=== PATIENT | female | born 1950 | race Caucasian/White ===

== ENCOUNTER 2016-05-20 15:09 | Inpatient (IN) | payer BC ==
[~2016-05-20] VITALS: Ht 160 cm; Wt 71.7 kg
[~2016-05-20 15:09] MED LIST: ASPI81TA2 PO; BORT3.5V IJ; DEXA4TAB PO; IBUP-1027 PO; Insulin Detemir SQ; LENA10CA PO; LEVO250T25 PO; METF10002 PO; NAPR220C4 PO; OLME20TA PO; PRAV20TA2 PO; SULF1TAB24 PO; Tumeric PO; VALA500T5 PO; ZOLE4INF IV
--- NOTE | 2016-05-20 15:28 | ED.ADGEN ---
Past Medical History Past Medical History: Asthma, Cancer, Diabetes-Type II, High Cholesterol, Hypertension Additional Past Medical Histor: multiple myeloma Past Surgical History: Tonsillectomy, Other Additional Past Surgical Histo: hernia repair x3, right ankle fracture repair, dilation and curretage Alcohol Use: None Drug Use: None Adult General Chief Complaint Chief Complaint: WEAKNESS/GENERALIZED HPI HPI Patient is a 66 year old [woman, history of multiple myeloma on Velcade and Revlimid who presents the emergency department with a complaint of cough, generalized weakness and malaise over the past several days. Patient received her treatment on Monday, states she she has been feeling ill since that time. Was seen by her primary care provider on Monday, as she developed rhinorrhea , and was placed on amoxicillin, has been taking 500 mg twice daily for the past 3 days. Sore throat also reported. Patient states that she generally does not receive both of these treatments together, and is concerned that her symptoms may be due to the joint administration earlier this week. She denies any productive cough, states that it is dry and constant, associated with fever , 100.4-102. She last took acetaminophen around 9 AM this morning. Denies any emesis, states she's had a decreased appetite, complains of generalized body aches and malaise, no urinary symptoms. No chest pain, no focal weakness numbness or tingling. Review of Systems Review of Systems Constitutional: Fevers, chills and generalized malaise for the past several days. Eyes: Denies change in visual acuity. [] HENT: Nasal congestion and sore throat. Respiratory: Cough, no shortness of breath, cough is nonproductive. Cardiovascular: Denies chest pain or edema. [] GI: Denies abdominal pain, nausea, vomiting, bloody stools or diarrhea. [] : Denies dysuria. [] Musculoskeletal: Denies back pain or joint pain. [] Integument: Denies rash. [] Neurologic: Denies headache, focal weakness or sensory changes. [] Endocrine: Denies polyuria or polydipsia. [] Lymphatic: Denies swollen glands. [] Psychiatric: Denies depression or anxiety. [] Current Medications Current Medications Current Medications Medications (Trade) Dose Ordered Sig/Wes Start Time Stop Time Status Last Admin Dose Admin Acetaminophen (Tylenol) 650 mg PRN Q4HRS PRN 05/20/16 17:00 05/21/16 16:59 Albuterol/ Ipratropium (Duoneb) 3 ml RTQID 05/20/16 20:00 05/21/16 19:59 Fentanyl Citrate (Fentanyl 2ml Vial) 25 mcg PRN Q15MIN PRN 05/20/16 16:15 05/21/16 16:14 05/20/16 16:27 25 MCG Ondansetron HCl 4 mg 4 mg PRN Q8HRS PRN 05/20/16 17:00 05/21/16 16:59 Oseltamivir Phosphate (Tamiflu) 75 mg BID 05/20/16 17:00 05/25/16 09:01 Piperacillin Sod/ Tazobactam Sod 1 each 1 each PRN DAILY PRN 05/20/16 16:45 UNV Piperacillin Sod/ Tazobactam Sod/ Sodium Chloride (Zosyn/Iv Sodium Chloride 0.9% 100ml) 100 ml @ 200 mls/hr 1X ONCE 05/20/16 17:00 05/20/16 17:29 05/20/16 17:01 200 MLS/HR Sodium Chloride (Iv Sodium Chloride 0.9% 500ml Bag) 500 ml @ 500 mls/hr 1X ONCE 05/20/16 16:30 05/20/16 17:29 05/20/16 16:27 500 MLS/HR Sodium Chloride (Iv Sodium Chloride 0.9% 1000ml Bag) 1,000 ml @ 125 mls/hr Q8H 05/20/16 16:55 05/21/16 16:54 Vancomycin HCl 1 each 1 each PRN DAILY PRN 05/20/16 17:00 UNV Vancomycin HCl/ Sodium Chloride (Iv Sodium Chloride 0.9% 500ml Bag) 500 ml @ 250 mls/hr 1X ONCE 05/20/16 18:00 05/20/16 19:59 Allergies Allergies Allergies Coded Allergies Type Severity Reaction Last Updated Verified Beta-Blockers (Beta-Adrenergic Bloc Allergy Intermediate Itching and anxiety Yes Iodinated Contrast Media - Oral and Allergy Intermediate 05/08/14 Yes hydrocodone Allergy Intermediate 05/08/14 Yes pioglitazone Adverse Reaction Intermediate anxiety 05/08/14 Yes Physical Exam Physical Exam Constitutional: Well developed, well nourished, no acute distress, non-toxic appearance. [] HENT: Normocephalic, atraumatic, bilateral external ears normal, oropharynx moist, no oral exudates, nose normal. [] Eyes: PERRLA, EOMI, conjunctiva normal, no discharge. [] Neck: Normal range of motion, no tenderness, supple, no stridor. [] Cardiovascular:Heart rate regular rhythm, no murmur, S1, S2, rubs or gallops. [] Lungs & Thorax: Bilateral breath sounds clear to auscultation, no wheezing, rhonchi, rales. No chest or crepitus or tenderness. [] Abdomen: Bowel sounds normal, soft, no tenderness, no rebound, rigidity, no guarding, no masses, no pulsatile masses. [] Skin: Warm, dry, no erythema, no rash. [] Back: No tenderness, no CVA tenderness. [] Extremities: No tenderness, no cyanosis, no clubbing, ROM intact, no edema. Negative Homans sign. [] Neurologic: Alert and oriented X 3, normal motor function, normal sensory function, no focal deficits noted. [] Psychologic: Affect normal, judgement normal, mood normal. [] Current Patient Data Vital Signs Vital Signs Date Time Temp Pulse Resp B/P Pulse Ox O2 Delivery O2 Flow Rate FiO2 05/20/16 17:06 108 18 132/73 96 Room Air 05/20/16 15:45 98.2 98.2 Lab Values Laboratory Tests Test 05/20/16 15:40 05/20/16 15:43 05/20/16 16:10 White Blood Count 1.1x10^3/uL (4.0-11.0) *L Red Blood Count 3.55x10^6/uL (3.50-5.40) Hemoglobin 11.3g/dL (12.0-15.5) L Hematocrit 33.5% (36.0-47.0) L Mean Corpuscular Volume 94fL (79-100) Mean Corpuscular Hemoglobin 32pg (25-35) Mean Corpuscular Hemoglobin Concent 34g/dL (31-37) Red Cell Distribution Width 15.0% (11.5-14.5) H Platelet Count 76x10^3/uL (140-400) L Neutrophils (%) (Auto) 59% (31-73) Lymphocytes (%) (Auto) 18% (24-48) L Monocytes (%) (Auto) 21% (0-9) H Eosinophils (%) (Auto) 1% (0-3) Basophils (%) (Auto) 1% (0-3) Neutrophils # (Auto) 0.7x10^3uL (1.8-7.7) L Lymphocytes # (Auto) 0.2x10^3/uL (1.0-4.8) L Monocytes # (Auto) 0.2x10^3/uL (0.0-1.1) Eosinophils # (Auto) 0.0x10^3/uL (0.0-0.7) Basophils # (Auto) 0.0x10^3/uL (0.0-0.2) Segmented Neutrophils % 66% (35-66) Lymphocytes % 22% (24-48) L Monocytes % 11% (0-10) H Eosinophils % 1% (0-5) Platelet Estimate Adequate (ADEQUATE) Polychromasia Slight Tear Drop Cells Occ Ovalocytes Occ Crenated Cell Present Schistocytes Occ Sodium Level 137mmol/L (136-145) Potassium Level 3.7mmol/L (3.5-5.1) Chloride Level 101mmol/L (98-107) Carbon Dioxide Level 21mmol/L (21-32) Anion Gap 15 (6-14) H Blood Urea Nitrogen 11mg/dL (7-20) Creatinine 1.2mg/dL (0.6-1.0) H Estimated GFR (Cockcroft-Gault) 45.2 BUN/Creatinine Ratio 9 (6-20) Glucose Level 316mg/dL (70-99) H Lactic Acid Level 3.5mmol/L (0.4-2.0) H Calcium Level 9.7mg/dL (8.5-10.1) Total Bilirubin 0.5mg/dL (0.2-1.0) Aspartate Amino Transferase (AST) 98U/L (15-37) H Alanine Aminotransferase (ALT) 99U/L (14-59) H Alkaline Phosphatase 100U/L (46-116) Troponin I Quantitative < 0.017ng/mL (0.000-0.055) UP-Alm-Q-Type Natriuretic Peptide 83pg/mL (0-124) Total Protein 7.5g/dL (6.4-8.2) Albumin 3.2g/dL (3.4-5.0) L Albumin/Globulin Ratio 0.7 (1.0-1.7) L Influenza Type A Antigen Negative (NEGATIVE) Influenza Type B Antigen Positive (NEGATIVE) Urine Collection Type Unknown Urine Color Yellow Urine Clarity Clear Urine pH 6.0 Urine Specific [place] 1.020 Urine Protein 30mg/dL (NEG-TRACE) Urine Glucose (UA) >=1000mg/dL (NEG) Urine Ketones (Stick) Tracemg/dL (NEG) Urine Blood Moderate (NEG) Urine Nitrite Negative (NEG) Urine Bilirubin Negative (NEG) Urine Urobilinogen Dipstick 0.2mg/dL (0.2 mg/dL) Urine Leukocyte Esterase Negative (NEG) Urine RBC 1-2/HPF (0-2) Urine WBC 0/HPF (0-4) Urine Squamous Epithelial Cells Few/LPF Urine Bacteria 0/HPF (0-FEW) Laboratory Tests 05/20/16 15:40 Laboratory Tests 05/20/16 15:40 EKG EKG EC: Sinus tachycardia, heart rate 115 beats minute, left axis deviation, QTC of 433, NH 132, QRS of 70, moderate baseline artifact noted, no ST elevations or depressions identified, abnormal ECG, does not meet STEMI criteria. As interpreted by me. Radiology/Procedures Radiology/Procedures [] [facility] [address] [place] [address] IMAGING REPORT Signed PATIENT: CARMINA BUSTOS ACCOUNT: [id number] : 1950 LOCATION: ER AGE: 66 SEX: F EXAM STATUS: PRE ER ORD. PHYSICIAN: SAL GONGORA DO REASON: Cough PROCEDURE: CHEST PA & LATERAL Examination: 2 views of the chest History: History of cough Comparison: 05/09/2014 Findings: The cardiomediastinal silhouette grossly appears unremarkable. There is no acute infiltrate or visualized pneumothorax identified. Impression: No acute cardiopulmonary findings. DICTATED and SIGNED BY: WAYNE SLATER MD DATE: 05/20/16 1555 CC: SAL GONGORA DO; GUZMAN,VAN T DO ~ Course & Med Decision Making Course & Med Decision Making Pertinent Labs and Imaging studies reviewed. (See chart for details) Patient tachycardic, in the 1 teens, oxygen saturation in the mid upper 90s, respiratory rate is unlabored. Patient placed on precautions due to recent use of chemotherapy. Patient agreeable to laboratory studies and x-ray in the ED, IV fluids initiated. Patient with a normal-appearing chest x-ray, however noted to have a lactic acidosis with a lactic of 3.5, evidence of mild dehydration, urinalysis was negative, patient neutropenic with a white count of 1.1, is on neutropenic precautions as stated. Findings as above discussed with Dr. Snow of hematology oncology, who recommends admission to the hospital for observation and management; although patient's symptoms are likely due to influenza type B, due to her neutropenic status and level of dehydration, will cover with broad-spectrum antibiotics, in addition to Tamiflu, supportive care, with consultation to infectious disease, blood cultures are pending at this time. Patient is agreeable with plan as stated above, is resting more comfortably having received Tylenol, fentanyl, and IV fluids in the ED. Heart rate is in the low 100s, blood pressure remained stable, oxygen saturation remains stable. Findings as above discussed with Dr. Montero of internal medicine , patient accepted to her service as a full admission to the medical telemetry floor with supportive care, IV Zosyn and vancomycin, consultation as above, bridge orders as this per discussion. Dragon Disclaimer Dragon Disclaimer This electronic medical record was generated, in whole or in part, using a voice recognition dictation system. Departure Impression: Primary Impression: Neutropenic fever Additional Impressions: Influenza due to influenza virus, type B Multiple myeloma Lactic acidosis Disposition: ADMITTED INPATIENT Admitting Physician: Other Condition: IMPROVED Problem Qualifiers Additional Impressions: Multiple myeloma Multiple myeloma remission status: not in remission Qualified Code: C90.00 - Multiple myeloma not having achieved remission SAL GONGORA DO May 20, 2016 15:28
[2016-05-20 15:52] LABS: BASO % 1 % (0-3); EOS % 1 % (0-3); HEMATOCRIT 33.5 % (36.0-47.0); HEMOGLOBIN 11.3 g/dL (12.0-15.5); LYMPH # 0.2 x10^3/uL (1.0-4.8); LYMPH % 18 % (24-48); MEAN CORPUSCULAR HEMOGLOBIN 32 pg (25-35); MEAN CORPUSCULAR HGB CONC 34 g/dL (31-37); MEAN CORPUSCULAR VOLUME 94 fL (79-100); MONO % 21 % (0-9); NEUT % 59 % (31-73); PLATELET COUNT 76 x10^3/uL (140-400); RED BLOOD COUNT 3.55 x10^6/uL (3.50-5.40)
--- NOTE | 2016-05-20 16:01 | RAD ---
Examination: 2 views of the chest History: History of cough Comparison: 05/09/2014 Findings: The cardiomediastinal silhouette grossly appears unremarkable. There is no acute infiltrate or visualized pneumothorax identified. Impression: No acute cardiopulmonary findings.
[2016-05-20 16:02] LABS: WHITE BLOOD COUNT 1.1 x10^3/uL (4.0-11.0)
--- NOTE | 2016-05-20 16:05 | EKG ---
[facility] [address] [place] [address] Test Date: 2016-05-20 Test Time: 16:00:35 Pat Name: CARMINA BUSTOS Department: Room: Gender: F Independent Consultant: : 1950 Requested By: SAL GONGORA Order Number: [id number] Reading MD: Marj Cuello Measurements Intervals [place] Rate: 115 P: -8 UT: 132 QRS: -10 QRSD: 70 T: 24 QT: 312 QTc: 433 Interpretive Statements SINUS TACHYCARDIA LEFTWARD AXIS OTHERWISE NORMAL ECG RI6.01 Unconfirmed report Compared to ECG 05/08/2014 16:54:42 No significant changes Electronically Signed On 05-21-2016 20:22:48 CDT by Marj Cuello
[2016-05-20 16:15] LABS: CALCIUM 9.7 mg/dL (8.5-10.1); CREATININE 1.2 mg/dL (0.6-1.0); GFR 45.2; POTASSIUM 3.7 mmol/L (3.5-5.1)
[2016-05-20] MEDS ORDERED: FENTANYL PF 100 MCG/2 ML VIAL. IV PRN (16:15)
[2016-05-20 16:20] LABS: ALBUMIN 3.2 g/dL (3.4-5.0); ALBUMIN/GLOBULIN RATIO 0.7 (1.0-1.7); TOTAL BILIRUBIN 0.5 mg/dL (0.2-1.0); TOTAL PROTEIN 7.5 g/dL (6.4-8.2)
[2016-05-20 16:23] LABS: BILIRUBIN,URINE NEGATIVE (NEG); GLUCOSE,URINE >=1000 mg/dL (NEG); NITRITE,URINE NEGATIVE (NEG); PROTEIN,URINE 30 mg/dL (NEG-TRACE); UROBILINOGEN,URINE 0.2 mg/dL (0.2 mg/dL)
[2016-05-20] MEDS ORDERED: ACETAMINOPHEN 500 MG TABLET PO ONE (16:30)
[2016-05-20] MEDS ORDERED: IV NORMAL SALINE 500ML BAG 500 ML IV ONE (16:30)
[2016-05-20 16:35] LABS: OBC FLU VALID
[2016-05-20 16:38] LABS: BACTERIA,URINE 0 /HPF (0-FEW); SQUAMOUS EPITHELIAL CELL,UR FEW /LPF; WBC,URINE 0 /HPF (0-4)
[2016-05-20 16:42] LABS: % EOS 1 % (0-5)
[2016-05-20 16:43] LABS: PLT ESTIMATE ADEQUATE (ADEQUATE)
[2016-05-20 16:45] LABS: CRENATED RBC PRESENT; OVALOCYTES OCC; POLYCHROMASIA SLIGHT; SCHISTOCYTES OCC; TEAR DROP CELLS OCC
[2016-05-20] MEDS ORDERED: PIP/TAZO PER PHARMACY MC PRN (16:45)
[2016-05-20] MEDS ORDERED: IV NORMAL SALINE 1000ML BAG 1,000 ML IV ONE (16:45)
[2016-05-20] MEDS ORDERED: ACETAMINOPHEN 325 MG TABLET. PO PRN (17:00)
[2016-05-20] MEDS ORDERED: ONDANSETRON PF 4 MG/2 ML VIAL. IV PRN (17:00)
[2016-05-20] MEDS ORDERED: PIPERACILLIN/TAZOBACTAM 4.5 GM in IV NORMAL SALINE 100ML 100 ML IV ONE (17:00)
[2016-05-20] MEDS ORDERED: DEXTROSE 50% 25 GM / 50ML DISP.SYRIN. IV PRN (17:30)
[2016-05-20] MEDS ORDERED: VANCOMYCIN 1.75 GM in IV NORMAL SALINE 500ML BAG 500 ML IV ONE (18:00)
[2016-05-20 20:30] VITALS: BP 115/64
[2016-05-20] MEDS: VANCOMYCIN PER PHARMACY MC PRN (20:33)
[2016-05-20] MEDS: IPRATRPIUM/ALBUTEROL 0.5/2.5MG 3 ML NEBU. NEB SCH (21:21)
[2016-05-20] MEDS: OSELTAMIVIR 75 MG CAPSULE PO SCH (22:02)
[2016-05-20] MEDS: TBO-FILGRASTIM 480 MCG/0.8 ML SYRINGE. SQ SCH (22:03)
[2016-05-20 23:00] VITALS: BP 110/59
[2016-05-20 23:49] VITALS: BP 115/64
[2016-05-21] MEDS: IV NORMAL SALINE 1000ML BAG 1,000 ML IV SCH ×3 (00:55→08:55)
--- NOTE | 2016-05-21 01:16 | HP ---
ADMIT DATE: 05/20/2016 CHIEF COMPLAINT: Influenza A. HISTORY OF PRESENT ILLNESS: The patient is a 66-year-old woman with the diagnosis of multiple myeloma dating back to the summer of 2014, at which time she received induction followed by auto bone marrow transplant and subsequent Revlimid maintenance. With recent worsening in her paraprotein, she was again started on weekly Revlimid, her most recent dose being last Monday. She relates that she had been feeling poorly over the past few days, had a nonproductive cough, especially with deep breathing, getting very short of breath with exertion. She denies any fevers, chills, admits to generalized fatigue, malaise, myalgias/arthralgias. Denies any GI symptoms. She presented to the Emergency Room and was found to have influenza A by serology. Her white count today was only 1.1 with an absolute neutrophil count of 0.7. She was therefore admitted for further management and care. PAST MEDICAL HISTORY: Multiple myeloma as above, diabetes mellitus, hypertension. FAMILY HISTORY: Positive for diabetes. SOCIAL HISTORY: Lives with her . No toxic habits. ALLERGIES: BETA BLOCKERS, HYDROCODONE AND PIOGLITAZONE, UNKNOWN REACTION. MEDICATIONS: MAR reconciled with home medications. REVIEW OF SYSTEMS: Positive as per HPI. Rest of organ system review is negative. PHYSICAL EXAMINATION: VITAL SIGNS: From today show blood pressure of 118/60, heart rate of 96, respiratory rate 24. She is afebrile in the ER. GENERAL: This is a well-nourished 66-year-old woman, alert and oriented, in no acute distress. HEENT: Shows no scleral icterus. Oral mucosa is dry. NECK: Supple, without any lymphadenopathy. LUNGS: Clear, but deep breathing causes coughing spells. HEART: Has regular rate and rhythm. ABDOMEN: Positive bowel sounds, soft, nontender. EXTREMITIES: Show no edema. SKIN: Warm, soft and dry without any rash. LABORATORY DATA: CBC from today with a WBC of 1.1, ANC of 0.7, hemoglobin 11.3, platelets of 76. Chemistries with a BUN and creatinine of 11 and 1.2. Electrolytes within normal. Transaminases elevated at 98 and 99 respectively. Urine was negative. Serology positive for influenza B. RADIOGRAPHIC FINDINGS: Chest x-ray shows no cardiopulmonary findings. ASSESSMENT AND PLAN: The patient is a severely immunocompromised woman with a history of multiple myeloma, on Velcade, who is now presenting with influenza B. She has been started on Tamiflu. We will continue this. Because of her severe neutropenia, we will start her on Zosyn and vancomycin as well. IV fluids will be administered. We will monitor her WBC. Anticipate this may be a little slowed in recovery, we will add Granix to her regimen. Diabetes currently is very poorly controlled. She has only metformin on an outpatient basis. We will hold that for the time being, especially since creatinine is slightly elevated. We will switch to insulin sliding scale for now. She is scheduled to see her primary care physician in the near future for adjustment in her medications. Thrombocytopenia is most likely related to chemotherapy as well. We will monitor. She is now 5 days out from her last Velcade dose, anticipate improvement. However, it is unclear if her baseline is actually within the normal population's clinical range. Dr. Cabrera has been informed of her admission. NGUYEN HERNANDEZ MD DR: MULUGETA/nts JOB#: [id number] / [id number] SWAPNA Reid MD, VAN DO MTDD
[2016-05-21 03:00] VITALS: BP 111/67
[2016-05-21 04:52] LABS: BASO % 1 % (0-3); EOS % 0 % (0-3); HEMATOCRIT 28.5 % (36.0-47.0); HEMOGLOBIN 9.8 g/dL (12.0-15.5); LYMPH # 0.3 x10^3/uL (1.0-4.8); LYMPH % 14 % (24-48); MEAN CORPUSCULAR HEMOGLOBIN 32 pg (25-35); MEAN CORPUSCULAR HGB CONC 34 g/dL (31-37); MEAN CORPUSCULAR VOLUME 93 fL (79-100); MONO % 14 % (0-9); NEUT % 71 % (31-73); PLATELET COUNT 60 x10^3/uL (140-400); RED BLOOD COUNT 3.08 x10^6/uL (3.50-5.40)
[2016-05-21 05:02] LABS: CALCIUM 8.5 mg/dL (8.5-10.1); CREATININE 1.2 mg/dL (0.6-1.0); GFR 45.2; POTASSIUM 3.2 mmol/L (3.5-5.1)
[2016-05-21] MEDS: PIPERACILLIN/TAZOBACTAM 4.5 GM in IV NORMAL SALINE 100ML 100 ML IV SCH ×6 (06:31→23:48)
[2016-05-21 07:15] VITALS: BP 136/67
[2016-05-21] MEDS: IPRATRPIUM/ALBUTEROL 0.5/2.5MG 3 ML NEBU. NEB SCH ×3 (07:38→15:28)
[2016-05-21] MEDS: OSELTAMIVIR 75 MG CAPSULE PO SCH (09:15)
[2016-05-21] MEDS ORDERED: POTASSIUM CHLORIDE 20 MEQ TABLET.ER. PO ONE (09:45)
--- NOTE | 2016-05-21 09:54 | PDOC ---
PROGRESS NOTES Chief Complaint Chief Complaint Influenza B. - multiple myeloma, receiving weekly Revlimid - neutropenia - diabetes mellitus - hypertension History of Present Illness History of Present Illness Patient resting in bed with no acute distress and without new complaints. at bedside. Pt had been feeling poorly over the past several days with a nonproductive cough and SOA on exertion. Pt remains afebrile, but still with some fatigue, generalized malaise, and myalgias/arthralgias. WBC today 2.0 from 1.1 yesterday. Absolute neutrophil count 1.4 from 0.7. Pt has been on cardiac diet and wanted to return to regular diet. Vitals Vitals Vital Signs Date Time Temp Pulse Resp B/P Pulse Ox O2 Delivery O2 Flow Rate FiO2 05/21/16 07:39 96 Room Air 05/21/16 07:15 99.1 105 14 136/67 99.1 Physical Exam General: Alert, Cooperative, No acute distress Heart: Regular rate, Normal S1, No murmurs Lungs: Clear Abdomen: Soft, No tenderness Extremities: No cyanosis, No edema Skin: No significant lesion Labs LABS Laboratory Tests Test 05/20/16 15:40 05/20/16 15:43 05/20/16 16:10 05/20/16 19:00 White Blood Count 1.1x10^3/uL (4.0-11.0) Red Blood Count 3.55x10^6/uL (3.50-5.40) Hemoglobin 11.3g/dL (12.0-15.5) Hematocrit 33.5% (36.0-47.0) Mean Corpuscular Volume 94fL (79-100) Mean Corpuscular Hemoglobin 32pg (25-35) Mean Corpuscular Hemoglobin Concent 34g/dL (31-37) Red Cell Distribution Width 15.0% (11.5-14.5) Platelet Count 76x10^3/uL (140-400) Neutrophils (%) (Auto) 59% (31-73) Lymphocytes (%) (Auto) 18% (24-48) Monocytes (%) (Auto) 21% (0-9) Eosinophils (%) (Auto) 1% (0-3) Basophils (%) (Auto) 1% (0-3) Neutrophils # (Auto) 0.7x10^3uL (1.8-7.7) Lymphocytes # (Auto) 0.2x10^3/uL (1.0-4.8) Monocytes # (Auto) 0.2x10^3/uL (0.0-1.1) Eosinophils # (Auto) 0.0x10^3/uL (0.0-0.7) Basophils # (Auto) 0.0x10^3/uL (0.0-0.2) Segmented Neutrophils % 66% (35-66) Lymphocytes % 22% (24-48) Monocytes % 11% (0-10) Eosinophils % 1% (0-5) Platelet Estimate Adequate (ADEQUATE) Polychromasia Slight Tear Drop Cells Occ Ovalocytes Occ Crenated Cell Present Schistocytes Occ Sodium Level 137mmol/L (136-145) Potassium Level 3.7mmol/L (3.5-5.1) Chloride Level 101mmol/L (98-107) Carbon Dioxide Level 21mmol/L (21-32) Anion Gap 15 (6-14) Blood Urea Nitrogen 11mg/dL (7-20) Creatinine 1.2mg/dL (0.6-1.0) Estimated GFR (Cockcroft-Gault) 45.2 BUN/Creatinine Ratio 9 (6-20) Glucose Level 316mg/dL (70-99) Lactic Acid Level 3.5mmol/L (0.4-2.0) 2.2mmol/L (0.4-2.0) Calcium Level 9.7mg/dL (8.5-10.1) Total Bilirubin 0.5mg/dL (0.2-1.0) Aspartate Amino Transf (AST/SGOT) 98U/L (15-37) Alanine Aminotransferase (ALT/SGPT) 99U/L (14-59) Alkaline Phosphatase 100U/L (46-116) Troponin I Quantitative < 0.017ng/mL (0.000-0.055) AR-Xmn-B-Type Natriuretic Peptide 83pg/mL (0-124) Total Protein 7.5g/dL (6.4-8.2) Albumin 3.2g/dL (3.4-5.0) Albumin/Globulin Ratio 0.7 (1.0-1.7) Influenza Type A Antigen Negative (NEGATIVE) Influenza Type B Antigen Positive (NEGATIVE) Urine Collection Type Unknown Urine Color Yellow Urine Clarity Clear Urine pH 6.0 Urine Specific [place] 1.020 Urine Protein 30mg/dL (NEG-TRACE) Urine Glucose (UA) >=1000mg/dL (NEG) Urine Ketones (Stick) Tracemg/dL (NEG) Urine Blood Moderate (NEG) Urine Nitrite Negative (NEG) Urine Bilirubin Negative (NEG) Urine Urobilinogen Dipstick 0.2mg/dL (0.2 mg/dL) Urine Leukocyte Esterase Negative (NEG) Urine RBC 1-2/HPF (0-2) Urine WBC 0/HPF (0-4) Urine Squamous Epithelial Cells Few/LPF Urine Bacteria 0/HPF (0-FEW) Test 05/20/16 20:51 05/21/16 04:00 05/21/16 08:09 Glucose (Fingerstick) 192mg/dL (70-99) 290mg/dL (70-99) White Blood Count 2.0x10^3/uL (4.0-11.0) Red Blood Count 3.08x10^6/uL (3.50-5.40) Hemoglobin 9.8g/dL (12.0-15.5) Hematocrit 28.5% (36.0-47.0) Mean Corpuscular Volume 93fL (79-100) Mean Corpuscular Hemoglobin 32pg (25-35) Mean Corpuscular Hemoglobin Concent 34g/dL (31-37) Red Cell Distribution Width 15.0% (11.5-14.5) Platelet Count 60x10^3/uL (140-400) Neutrophils (%) (Auto) 71% (31-73) Lymphocytes (%) (Auto) 14% (24-48) Monocytes (%) (Auto) 14% (0-9) Eosinophils (%) (Auto) 0% (0-3) Basophils (%) (Auto) 1% (0-3) Neutrophils # (Auto) 1.4x10^3uL (1.8-7.7) Lymphocytes # (Auto) 0.3x10^3/uL (1.0-4.8) Monocytes # (Auto) 0.3x10^3/uL (0.0-1.1) Eosinophils # (Auto) 0.0x10^3/uL (0.0-0.7) Basophils # (Auto) 0.0x10^3/uL (0.0-0.2) Sodium Level 140mmol/L (136-145) Potassium Level 3.2mmol/L (3.5-5.1) Chloride Level 105mmol/L (98-107) Carbon Dioxide Level 20mmol/L (21-32) Anion Gap 15 (6-14) Blood Urea Nitrogen 10mg/dL (7-20) Creatinine 1.2mg/dL (0.6-1.0) Estimated GFR (Cockcroft-Gault) 45.2 Glucose Level 221mg/dL (70-99) Calcium Level 8.5mg/dL (8.5-10.1) Review of Systems Review of Systems denies fever, chills denies chest pain improved SOB + intermittent cough Assessment and Plan Assessmemt and Plan ASSESSMENT: - Influenza B - multiple myeloma, receiving weekly Revlimid - neutropenia - diabetes mellitus - hypertension PLAN: - consult oncology for MM and neutropenia - KCl 40 mEq replacement for K+ 3.2 - allowing regular diet - cont Tamiflu course - cont antibiotics per ID for neutropenia - cont IVF - cont to monitor WBC - cont Granix - cont sliding scale insulin for now; monitor blood glucose - monitor thrombocytopenia; likely related to chemotherapy; 6 days since last dose - repeat daily labs - PTOT - appreciate subspecialist input Problems: Comment Review of Relevant I have reviewed the following items marcelino (where applicable) has been applied. Labs Laboratory Tests Test 05/20/16 15:40 05/20/16 15:43 05/20/16 16:10 05/20/16 19:00 White Blood Count 1.1x10^3/uL (4.0-11.0) Red Blood Count 3.55x10^6/uL (3.50-5.40) Hemoglobin 11.3g/dL (12.0-15.5) Hematocrit 33.5% (36.0-47.0) Mean Corpuscular Volume 94fL (79-100) Mean Corpuscular Hemoglobin 32pg (25-35) Mean Corpuscular Hemoglobin Concent 34g/dL (31-37) Red Cell Distribution Width 15.0% (11.5-14.5) Platelet Count 76x10^3/uL (140-400) Neutrophils (%) (Auto) 59% (31-73) Lymphocytes (%) (Auto) 18% (24-48) Monocytes (%) (Auto) 21% (0-9) Eosinophils (%) (Auto) 1% (0-3) Basophils (%) (Auto) 1% (0-3) Neutrophils # (Auto) 0.7x10^3uL (1.8-7.7) Lymphocytes # (Auto) 0.2x10^3/uL (1.0-4.8) Monocytes # (Auto) 0.2x10^3/uL (0.0-1.1) Eosinophils # (Auto) 0.0x10^3/uL (0.0-0.7) Basophils # (Auto) 0.0x10^3/uL (0.0-0.2) Segmented Neutrophils % 66% (35-66) Lymphocytes % 22% (24-48) Monocytes % 11% (0-10) Eosinophils % 1% (0-5) Platelet Estimate Adequate (ADEQUATE) Polychromasia Slight Tear Drop Cells Occ Ovalocytes Occ Crenated Cell Present Schistocytes Occ Sodium Level 137mmol/L (136-145) Potassium Level 3.7mmol/L (3.5-5.1) Chloride Level 101mmol/L (98-107) Carbon Dioxide Level 21mmol/L (21-32) Anion Gap 15 (6-14) Blood Urea Nitrogen 11mg/dL (7-20) Creatinine 1.2mg/dL (0.6-1.0) Estimated GFR (Cockcroft-Gault) 45.2 BUN/Creatinine Ratio 9 (6-20) Glucose Level 316mg/dL (70-99) Lactic Acid Level 3.5mmol/L (0.4-2.0) 2.2mmol/L (0.4-2.0) Calcium Level 9.7mg/dL (8.5-10.1) Total Bilirubin 0.5mg/dL (0.2-1.0) Aspartate Amino Transf (AST/SGOT) 98U/L (15-37) Alanine Aminotransferase (ALT/SGPT) 99U/L (14-59) Alkaline Phosphatase 100U/L (46-116) Troponin I Quantitative < 0.017ng/mL (0.000-0.055) LL-Syb-T-Type Natriuretic Peptide 83pg/mL (0-124) Total Protein 7.5g/dL (6.4-8.2) Albumin 3.2g/dL (3.4-5.0) Albumin/Globulin Ratio 0.7 (1.0-1.7) Influenza Type A Antigen Negative (NEGATIVE) Influenza Type B Antigen Positive (NEGATIVE) Urine Collection Type Unknown Urine Color Yellow Urine Clarity Clear Urine pH 6.0 Urine Specific [place] 1.020 Urine Protein 30mg/dL (NEG-TRACE) Urine Glucose (UA) >=1000mg/dL (NEG) Urine Ketones (Stick) Tracemg/dL (NEG) Urine Blood Moderate (NEG) Urine Nitrite Negative (NEG) Urine Bilirubin Negative (NEG) Urine Urobilinogen Dipstick 0.2mg/dL (0.2 mg/dL) Urine Leukocyte Esterase Negative (NEG) Urine RBC 1-2/HPF (0-2) Urine WBC 0/HPF (0-4) Urine Squamous Epithelial Cells Few/LPF Urine Bacteria 0/HPF (0-FEW) Test 05/20/16 20:51 05/21/16 04:00 05/21/16 08:09 Glucose (Fingerstick) 192mg/dL (70-99) 290mg/dL (70-99) White Blood Count 2.0x10^3/uL (4.0-11.0) Red Blood Count 3.08x10^6/uL (3.50-5.40) Hemoglobin 9.8g/dL (12.0-15.5) Hematocrit 28.5% (36.0-47.0) Mean Corpuscular Volume 93fL (79-100) Mean Corpuscular Hemoglobin 32pg (25-35) Mean Corpuscular Hemoglobin Concent 34g/dL (31-37) Red Cell Distribution Width 15.0% (11.5-14.5) Platelet Count 60x10^3/uL (140-400) Neutrophils (%) (Auto) 71% (31-73) Lymphocytes (%) (Auto) 14% (24-48) Monocytes (%) (Auto) 14% (0-9) Eosinophils (%) (Auto) 0% (0-3) Basophils (%) (Auto) 1% (0-3) Neutrophils # (Auto) 1.4x10^3uL (1.8-7.7) Lymphocytes # (Auto) 0.3x10^3/uL (1.0-4.8) Monocytes # (Auto) 0.3x10^3/uL (0.0-1.1) Eosinophils # (Auto) 0.0x10^3/uL (0.0-0.7) Basophils # (Auto) 0.0x10^3/uL (0.0-0.2) Sodium Level 140mmol/L (136-145) Potassium Level 3.2mmol/L (3.5-5.1) Chloride Level 105mmol/L (98-107) Carbon Dioxide Level 20mmol/L (21-32) Anion Gap 15 (6-14) Blood Urea Nitrogen 10mg/dL (7-20) Creatinine 1.2mg/dL (0.6-1.0) Estimated GFR (Cockcroft-Gault) 45.2 Glucose Level 221mg/dL (70-99) Calcium Level 8.5mg/dL (8.5-10.1) Laboratory Tests Test 05/20/16 15:40 05/20/16 15:43 05/20/16 16:10 05/20/16 19:00 White Blood Count 1.1x10^3/uL (4.0-11.0) Red Blood Count 3.55x10^6/uL (3.50-5.40) Hemoglobin 11.3g/dL (12.0-15.5) Hematocrit 33.5% (36.0-47.0) Mean Corpuscular Volume 94fL (79-100) Mean Corpuscular Hemoglobin 32pg (25-35) Mean Corpuscular Hemoglobin Concent 34g/dL (31-37) Red Cell Distribution Width 15.0% (11.5-14.5) Platelet Count 76x10^3/uL (140-400) Neutrophils (%) (Auto) 59% (31-73) Lymphocytes (%) (Auto) 18% (24-48) Monocytes (%) (Auto) 21% (0-9) Eosinophils (%) (Auto) 1% (0-3) Basophils (%) (Auto) 1% (0-3) Neutrophils # (Auto) 0.7x10^3uL (1.8-7.7) Lymphocytes # (Auto) 0.2x10^3/uL (1.0-4.8) Monocytes # (Auto) 0.2x10^3/uL (0.0-1.1) Eosinophils # (Auto) 0.0x10^3/uL (0.0-0.7) Basophils # (Auto) 0.0x10^3/uL (0.0-0.2) Segmented Neutrophils % 66% (35-66) Lymphocytes % 22% (24-48) Monocytes % 11% (0-10) Eosinophils % 1% (0-5) Platelet Estimate Adequate (ADEQUATE) Polychromasia Slight Tear Drop Cells Occ Ovalocytes Occ Crenated Cell Present Schistocytes Occ Sodium Level 137mmol/L (136-145) Potassium Level 3.7mmol/L (3.5-5.1) Chloride Level 101mmol/L (98-107) Carbon Dioxide Level 21mmol/L (21-32) Anion Gap 15 (6-14) Blood Urea Nitrogen 11mg/dL (7-20) Creatinine 1.2mg/dL (0.6-1.0) Estimated GFR (Cockcroft-Gault) 45.2 BUN/Creatinine Ratio 9 (6-20) Glucose Level 316mg/dL (70-99) Lactic Acid Level 3.5mmol/L (0.4-2.0) 2.2mmol/L (0.4-2.0) Calcium Level 9.7mg/dL (8.5-10.1) Total Bilirubin 0.5mg/dL (0.2-1.0) Aspartate Amino Transf (AST/SGOT) 98U/L (15-37) Alanine Aminotransferase (ALT/SGPT) 99U/L (14-59) Alkaline Phosphatase 100U/L (46-116) Troponin I Quantitative < 0.017ng/mL (0.000-0.055) RN-Wey-S-Type Natriuretic Peptide 83pg/mL (0-124) Total Protein 7.5g/dL (6.4-8.2) Albumin 3.2g/dL (3.4-5.0) Albumin/Globulin Ratio 0.7 (1.0-1.7) Influenza Type A Antigen Negative (NEGATIVE) Influenza Type B Antigen Positive (NEGATIVE) Urine Collection Type Unknown Urine Color Yellow Urine Clarity Clear Urine pH 6.0 Urine Specific [place] 1.020 Urine Protein 30mg/dL (NEG-TRACE) Urine Glucose (UA) >=1000mg/dL (NEG) Urine Ketones (Stick) Tracemg/dL (NEG) Urine Blood Moderate (NEG) Urine Nitrite Negative (NEG) Urine Bilirubin Negative (NEG) Urine Urobilinogen Dipstick 0.2mg/dL (0.2 mg/dL) Urine Leukocyte Esterase Negative (NEG) Urine RBC 1-2/HPF (0-2) Urine WBC 0/HPF (0-4) Urine Squamous Epithelial Cells Few/LPF Urine Bacteria 0/HPF (0-FEW) Test 05/20/16 20:51 05/21/16 04:00 05/21/16 08:09 Glucose (Fingerstick) 192mg/dL (70-99) 290mg/dL (70-99) White Blood Count 2.0x10^3/uL (4.0-11.0) Red Blood Count 3.08x10^6/uL (3.50-5.40) Hemoglobin 9.8g/dL (12.0-15.5) Hematocrit 28.5% (36.0-47.0) Mean Corpuscular Volume 93fL (79-100) Mean Corpuscular Hemoglobin 32pg (25-35) Mean Corpuscular Hemoglobin Concent 34g/dL (31-37) Red Cell Distribution Width 15.0% (11.5-14.5) Platelet Count 60x10^3/uL (140-400) Neutrophils (%) (Auto) 71% (31-73) Lymphocytes (%) (Auto) 14% (24-48) Monocytes (%) (Auto) 14% (0-9) Eosinophils (%) (Auto) 0% (0-3) Basophils (%) (Auto) 1% (0-3) Neutrophils # (Auto) 1.4x10^3uL (1.8-7.7) Lymphocytes # (Auto) 0.3x10^3/uL (1.0-4.8) Monocytes # (Auto) 0.3x10^3/uL (0.0-1.1) Eosinophils # (Auto) 0.0x10^3/uL (0.0-0.7) Basophils # (Auto) 0.0x10^3/uL (0.0-0.2) Sodium Level 140mmol/L (136-145) Potassium Level 3.2mmol/L (3.5-5.1) Chloride Level 105mmol/L (98-107) Carbon Dioxide Level 20mmol/L (21-32) Anion Gap 15 (6-14) Blood Urea Nitrogen 10mg/dL (7-20) Creatinine 1.2mg/dL (0.6-1.0) Estimated GFR (Cockcroft-Gault) 45.2 Glucose Level 221mg/dL (70-99) Calcium Level 8.5mg/dL (8.5-10.1) Medications Current Medications Sodium Chloride (Iv Sodium Chloride 0.9% 500ml Bag) 500 ml @ 500 mls/hr 1X ONCE IV Last administered on 05/20/16 16:27; Start 05/20/16 at 16:30; Stop at 17:29; Status DC Fentanyl Citrate (Fentanyl 2ml Vial) 25 mcg PRN Q15MIN PRN IV PAIN GREATER THAN 3/10 Last administered on 05/20/16 16:27; Start 05/20/16 at 16:15; Stop at 16:14 Acetaminophen 1000 mg 1,000 mg 1X ONCE PO Last administered on 05/20/16 16:26 ; Start 05/20/16 at 16:30; Stop 05/20/16 at 16:31; Status DC Sodium Chloride (Iv Sodium Chloride 0.9% 1000ml Bag) 1,000 ml @ 125 mls/hr 1X ONCE IV Last administered on 05/20/16 16:45; Start 05/20/16 at 16:45; Stop at 00:44; Status DC Oseltamivir Phosphate (Tamiflu) 75 mg BID PO Last administered on 05/21/16 09: 15; Start 05/20/16 at 17:00; Stop 05/25/16 at 09:01 Piperacillin Sod/ Tazobactam Sod 1 each 1 each PRN DAILY PRN MC SEE COMMENTS; Start 05/20/16 at 16:45 Piperacillin Sod/ Tazobactam Sod/ Sodium Chloride (Zosyn/Iv Sodium Chloride 0.9 % 100ml) 100 ml @ 200 mls/hr 1X ONCE IV Last administered on 05/20/16 17:01 ; Start 05/20/16 at 17:00; Stop 05/20/16 at 17:29; Status DC Vancomycin HCl 1 each 1 each PRN DAILY PRN MC SEE COMMENTS Last administered on 05/20/16 20:33; Start 05/20/16 at 17:00 Vancomycin HCl/ Sodium Chloride (Iv Sodium Chloride 0.9% 500ml Bag) 500 ml @ 250 mls/hr 1X ONCE IV Last administered on 05/20/16 17:43; Start 05/20/16 at 18:00; Stop 05/20/16 at 19:59; Status DC Ondansetron HCl 4 mg 4 mg PRN Q8HRS PRN IV NAUSEA/VOMITING; Start 05/20/16 at 17:00; Stop 05/21/16 at 16:59 Sodium Chloride (Iv Sodium Chloride 0.9% 1000ml Bag) 1,000 ml @ 125 mls/hr Q8H IV Last administered on 05/21/16 00:55; Start 05/20/16 at 16:55; Stop at 16:54 Acetaminophen (Tylenol) 650 mg PRN Q4HRS PRN PO FEVER; Start 05/20/16 at 17:00 ; Stop 05/21/16 at 16:59 Albuterol/ Ipratropium (Duoneb) 3 ml RTQID NEB Last administered on 05/21/16 07:38; Start 05/20/16 at 20:00; Stop 05/21/16 at 19:59 Insulin Aspart (Novolog) 0-5 UNITS TIDWMEALS SQ ; Start 05/21/16 at 08:00 Dextrose 12.5 gm 12.5 gm PRN Q15MIN PRN IV SEE COMMENTS; Start 05/20/16 at 17: 30 Piperacillin Sod/ Tazobactam Sod 4.5 gm/Sodium Chloride 100 ml @ 200 mls/hr Q6HRS IV Last administered on 05/21/16 06:31; Start 05/21/16 at 00:00 Vancomycin HCl/ Sodium Chloride (Iv Sodium Chloride 0.9% 250ml) 250 ml @ 167 mls/hr Q24H IV ; Start 05/21/16 at 18:00 Vancomycin HCl 1 each 1X ONCE MC ; Start 05/22/16 at 17:30; Stop 05/22/16 at 17 :31 Tbo-Filgrastim (Granix) 480 mcg QHS SQ Last administered on 05/20/16t 22:03; Start 05/20/16 at 22:00 Active Scripts Active Reported Aspirin 81 Mg Tab.chew 81 Mg PO DAILY Metformin Hcl 1,000 Mg Tablet 1 Tab PO BID Revlimid (Lenalidomide) 10 Mg Capsule 10 Mg PO DAILY Benicar (Olmesartan Medoxomil) 20 Mg Tablet 0.5 Tab PO DAILY Pravastatin Sodium 20 Mg Tablet 1 Tab PO DAILY Vitals/I & O Vital Sign - Last 24 Hours 05/20/16 05/20/16 05/20/16 05/20/16 15:45 16:27 17:06 17:18 Temp 98.2 98.2 Pulse 114 108 104 Resp 18 26 B/P 137/69 132/73 119/67 Pulse Ox 96 96 94 O2 Delivery Room Air Room Air Room Air 05/20/16 05/20/16 05/20/16 05/20/16 17:48 18:00 18:48 19:18 Pulse 98 94 92 96 Resp 24 B/P 108/56 112/55 118/81 118/60 Pulse Ox 94 94 95 95 O2 Delivery Room Air Room Air Room Air 05/20/16 05/20/16 05/20/16 05/20/16 20:30 21:26 22:48 23:00 Temp 99.1 100.4 99.1 100.4 Pulse 95 110 Resp 18 16 B/P 115/64 110/59 Pulse Ox 95 98 97 O2 Delivery Room Air Room Air 05/20/16 05/21/16 05/21/16 05/21/16 23:49 03:00 07:15 07:39 Temp 99.1 99.6 99.1 99.1 99.6 99.1 Pulse 95 92 105 Resp 14 B/P 115/64 111/67 136/67 Pulse Ox 98 95 96 96 O2 Delivery Room Air Room Air Room Air Intake and Output 05/20/16 05/20/16 05/21/16 15:00 23:00 07:00 Intake Total 1100 ml 1580 ml Balance 1100 ml 1580 ml ROBI RICO III DO May 21, 2016 09:54
[2016-05-21] MEDS: INSULIN ASPART 300 UNITS/3 ML INSULN.PEN SQ SCH ×3 (10:16→17:16)
[2016-05-21 11:15] VITALS: BP 115/65
--- NOTE | 2016-05-21 11:29 | PDOC2 ---
CONSULT Date of Consult Date of Consult DATE: 05/21/16 TIME: 11:16 Reason for Consult Reason for Consult: Multiple Myeloma; neutropenic fever Referring Physician Referring Physician: Dr. Montero Source Source: Patient History of Present Illness Reason for Visit: 66 yo female with history of multiple myeloma currently on chemotherapy with Revlimid and velcade. She received velcade and zometa on Monday and is currently taking oral revlimid. She states that she developed fevers a couple of days ago. She went to her primary doctor and was prescribed abx. She continued to worsen and presented to the ED. Upon arrival to the ED she was found to be neutropenic and having fevers. She tested positive for Influenza B. She was started on broad spectrum abx and tamiflu. Currently, she feels much better. She had a temp last night but denies any further fevers. She denies any other complaints. Past Medical History Cardiovascular: HTN, Hyperlipidemia Pulmonary: Asthma CENTRAL NERVOUS SYSTEM: Other GI: No pertinent hx Heme/Onc: Cancer Hepatobiliary: No pertinent hx Psych: No pertinent hx Musculoskeletal: Osteoarthritis Rheumatologic: No pertinent hx Infectious disease: No pertinent hx Renal/: No pertinent hx Endocrine: Diabetes Past Surgical History Past Surgical History: Hernia Repair, Tonsillectomy, Other Family History Family History: Stroke Social History ALCOHOL: none Drugs: None Lives: with Family Domestic Violence: Neg Current Problem List Problem List Problems Medical Problems: (1) Fever Status: Acute (2) Influenza due to influenza virus, type B Status: Acute (3) Lactic acidosis Status: Acute (4) Multiple myeloma Status: Acute (5) Neutropenic fever Status: Acute Current Medications Current Medications Current Medications Sodium Chloride (Iv Sodium Chloride 0.9% 500ml Bag) 500 ml @ 500 mls/hr 1X ONCE IV Last administered on 05/20/16 16:27; Start 05/20/16 at 16:30; Stop at 17:29; Status DC Fentanyl Citrate (Fentanyl 2ml Vial) 25 mcg PRN Q15MIN PRN IV PAIN GREATER THAN 3/10 Last administered on 05/20/16 16:27; Start 05/20/16 at 16:15; Stop at 16:14 Acetaminophen 1000 mg 1,000 mg 1X ONCE PO Last administered on 05/20/16 16:26 ; Start 05/20/16 at 16:30; Stop 05/20/16 at 16:31; Status DC Sodium Chloride (Iv Sodium Chloride 0.9% 1000ml Bag) 1,000 ml @ 125 mls/hr 1X ONCE IV Last administered on 05/20/16 16:45; Start 05/20/16 at 16:45; Stop at 00:44; Status DC Oseltamivir Phosphate (Tamiflu) 75 mg BID PO Last administered on 05/21/16 09: 15; Start 05/20/16 at 17:00; Stop 05/25/16 at 09:01 Piperacillin Sod/ Tazobactam Sod 1 each 1 each PRN DAILY PRN MC SEE COMMENTS; Start 05/20/16 at 16:45 Piperacillin Sod/ Tazobactam Sod/ Sodium Chloride (Zosyn/Iv Sodium Chloride 0.9 % 100ml) 100 ml @ 200 mls/hr 1X ONCE IV Last administered on 05/20/16 17:01 ; Start 05/20/16 at 17:00; Stop 05/20/16 at 17:29; Status DC Vancomycin HCl 1 each 1 each PRN DAILY PRN MC SEE COMMENTS Last administered on 05/20/16 20:33; Start 05/20/16 at 17:00 Vancomycin HCl/ Sodium Chloride (Iv Sodium Chloride 0.9% 500ml Bag) 500 ml @ 250 mls/hr 1X ONCE IV Last administered on 05/20/16 17:43; Start 05/20/16 at 18:00; Stop 05/20/16 at 19:59; Status DC Ondansetron HCl 4 mg 4 mg PRN Q8HRS PRN IV NAUSEA/VOMITING; Start 05/20/16 at 17:00; Stop 05/21/16 at 16:59 Sodium Chloride (Iv Sodium Chloride 0.9% 1000ml Bag) 1,000 ml @ 125 mls/hr Q8H IV Last administered on 05/21/16 08:55; Start 05/20/16 at 16:55; Stop at 16:54 Acetaminophen (Tylenol) 650 mg PRN Q4HRS PRN PO FEVER; Start 05/20/16 at 17:00 ; Stop 05/21/16 at 16:59 Albuterol/ Ipratropium (Duoneb) 3 ml RTQID NEB Last administered on 05/21/16 07:38; Start 05/20/16 at 20:00; Stop 05/21/16 at 19:59 Insulin Aspart (Novolog) 0-5 UNITS TIDWMEALS SQ Last administered on 05/21/16 10:16; Start 05/21/16 at 08:00 Dextrose 12.5 gm 12.5 gm PRN Q15MIN PRN IV SEE COMMENTS; Start 05/20/16 at 17: 30 Piperacillin Sod/ Tazobactam Sod 4.5 gm/Sodium Chloride 100 ml @ 200 mls/hr Q6HRS IV Last administered on 05/21/16 06:31; Start 05/21/16 at 00:00 Vancomycin HCl/ Sodium Chloride (Iv Sodium Chloride 0.9% 250ml) 250 ml @ 167 mls/hr Q24H IV ; Start 05/21/16 at 18:00 Vancomycin HCl 1 each 1X ONCE MC ; Start 05/22/16 at 17:30; Stop 05/22/16 at 17 :31 Tbo-Filgrastim (Granix) 480 mcg QHS SQ Last administered on 05/20/16 22:03; Start 05/20/16 at 22:00 Potassium Chloride (Klor-Con) 40 meq 1X ONCE PO Last administered on 10:12; Start 05/21/16 at 09:45; Stop 05/21/16 at 09:47; Status DC Active Scripts Active Reported Aspirin 81 Mg Tab.chew 81 Mg PO DAILY Metformin Hcl 1,000 Mg Tablet 1 Tab PO BID Revlimid (Lenalidomide) 10 Mg Capsule 10 Mg PO DAILY Benicar (Olmesartan Medoxomil) 20 Mg Tablet 0.5 Tab PO DAILY Pravastatin Sodium 20 Mg Tablet 1 Tab PO DAILY Allergies Allergies: Coded Allergies: Beta-Blockers (Beta-Adrenergic Bloc (Verified Allergy, Intermediate, Itching and anxiety, 05/11/14) Iodinated Contrast Media - Oral and (Verified Allergy, Intermediate, ) hydrocodone (Verified Allergy, Intermediate, 05/08/14) pioglitazone (Verified Adverse Reaction, Intermediate, anxiety, 05/08/14) ROS General: YES: Fatigue, Other (fever) PSYCHOLOGICAL ROS: No: Anxiety, Behavioral Disorder, Concentration difficultie , Decreased libido, Depression, Disorientation, Hallucinations, Hostility, Irritablity, Memory difficulties, Mood Swings, Obsessive thoughts, Other, Physical abuse, Sexual abuse, Sleep disturbances, Suicidal ideation Eyes: No Blurry vision, No Decreased vision, No Double vision, No Dry eyes, No Excessive tearing, No Eye Pain, No Itchy Eyes, No Loss of vision, No Other, No Photophobia, No Scotomata, No Uses contacts, No Uses glasses HEENT: No: Epistaxis, Heacaches, Hearing change, Nasal congestion, Nasal discharge, Oral lesions, Other, Sinus pain, Sneezing, Snoring, Sore Throat, Tinnitus, Vertigo, Visual Changes, Vocal changes ALLERGY AND IMMUNOLOGY: No: Hives, Insect Bite Sensitivity, Itchy/Watery Eyes, Nasal Congestion, Other, Post Nasal Drip, Seasonal Allergies Hematological and Lymphatic: No: Bleeding Problems, Blood Clots, Blood Transfusions, Brusing, Night Sweats, Other, Pallor, Swollen Lymph Nodes ENDOCRINE: No: Breast Changes, Galactorrhea, Hair Pattern Changes, Hot Flashes , Malaise/lethargy, Mood Swings, Other, Palpitations, Polydipsia/polyuria, Skin Changes, Temperature Intolerance, Unexpected Weight Changes Breast: No New/Changing Breast Lumps, No Nipple changes, No Nipple discharge, No Other Respiratory: No: Cough, Hemoptysis, Orthopnea, Other, Pleuritic Pain, SOB with excertion, Shortness of breath, Sputum Changes, Stridor, Tachypnea, Wheezing Cardiovascular: No Chest Pain, No Edema, No Lt Headedness, No Orthopnea, No Other, No Palpitations, No Paroxysmal Noc. Dyspnea Gastrointestinal: No Abdominal Pain, No Constipation, No Diarrhea, No Hematochezia, No Melena, No Nausea, No Other, No Vomiting Genitourinary: No , No , No , No , No , No , No , No Discharge, No Dysuria, No Flank Pain, No Frequency, No Hematuria, No Incontinence, No Other, No Pain, No Retention, No Urgency Musculoskeletal: No Gait Disturbance, No Joint Pain, No Joint Stiffness, No Joint Swelling, No Muscle Pain, No Muscular Weakness, No Other, No Pain In:, No Swelling In: Neurological: No Behavorial Changes, No Bowel/Bladder ControlChng, No Confusion , No Dizziness, No Gait Disturbance, No Headaches, No Impaired Coord/balance, No Memory Loss, No Numbness/Tingling, No Other, No Seizures, No Speech Problems , No Tremors, No Visual Changes, No Weakness Skin: No Acne, No Dry Skin, No Eczema, No Hair Changes, No Lumps, No Mole Changes, No Mottling, No Nail Changes, No Other, No Pruritus, No Rash, No Skin Lesion Changes Physical Exam General: Alert, Oriented X3 HEENT: PERRLA Lungs: Clear to auscultation Heart: Regular rate, Normal S1, Normal S2 Abdomen: Normal bowel sounds, Soft Vitals VITALS Vital Signs Date Time Temp Pulse Resp B/P Pulse Ox O2 Delivery O2 Flow Rate FiO2 05/21/16 08:00 Room Air 05/21/16 07:39 96 05/21/16 07:15 99.1 105 14 136/67 99.1 Labs Labs Laboratory Tests Test 05/20/16 15:40 05/20/16 15:43 05/20/16 16:10 05/20/16 19:00 White Blood Count 1.1x10^3/uL (4.0-11.0) Red Blood Count 3.55x10^6/uL (3.50-5.40) Hemoglobin 11.3g/dL (12.0-15.5) Hematocrit 33.5% (36.0-47.0) Mean Corpuscular Volume 94fL (79-100) Mean Corpuscular Hemoglobin 32pg (25-35) Mean Corpuscular Hemoglobin Concent 34g/dL (31-37) Red Cell Distribution Width 15.0% (11.5-14.5) Platelet Count 76x10^3/uL (140-400) Neutrophils (%) (Auto) 59% (31-73) Lymphocytes (%) (Auto) 18% (24-48) Monocytes (%) (Auto) 21% (0-9) Eosinophils (%) (Auto) 1% (0-3) Basophils (%) (Auto) 1% (0-3) Neutrophils # (Auto) 0.7x10^3uL (1.8-7.7) Lymphocytes # (Auto) 0.2x10^3/uL (1.0-4.8) Monocytes # (Auto) 0.2x10^3/uL (0.0-1.1) Eosinophils # (Auto) 0.0x10^3/uL (0.0-0.7) Basophils # (Auto) 0.0x10^3/uL (0.0-0.2) Segmented Neutrophils % 66% (35-66) Lymphocytes % 22% (24-48) Monocytes % 11% (0-10) Eosinophils % 1% (0-5) Platelet Estimate Adequate (ADEQUATE) Polychromasia Slight Tear Drop Cells Occ Ovalocytes Occ Crenated Cell Present Schistocytes Occ Sodium Level 137mmol/L (136-145) Potassium Level 3.7mmol/L (3.5-5.1) Chloride Level 101mmol/L (98-107) Carbon Dioxide Level 21mmol/L (21-32) Anion Gap 15 (6-14) Blood Urea Nitrogen 11mg/dL (7-20) Creatinine 1.2mg/dL (0.6-1.0) Estimated GFR (Cockcroft-Gault) 45.2 BUN/Creatinine Ratio 9 (6-20) Glucose Level 316mg/dL (70-99) Lactic Acid Level 3.5mmol/L (0.4-2.0) 2.2mmol/L (0.4-2.0) Calcium Level 9.7mg/dL (8.5-10.1) Total Bilirubin 0.5mg/dL (0.2-1.0) Aspartate Amino Transf (AST/SGOT) 98U/L (15-37) Alanine Aminotransferase (ALT/SGPT) 99U/L (14-59) Alkaline Phosphatase 100U/L (46-116) Troponin I Quantitative < 0.017ng/mL (0.000-0.055) RO-Ekd-H-Type Natriuretic Peptide 83pg/mL (0-124) Total Protein 7.5g/dL (6.4-8.2) Albumin 3.2g/dL (3.4-5.0) Albumin/Globulin Ratio 0.7 (1.0-1.7) Influenza Type A Antigen Negative (NEGATIVE) Influenza Type B Antigen Positive (NEGATIVE) Urine Collection Type Unknown Urine Color Yellow Urine Clarity Clear Urine pH 6.0 Urine Specific [place] 1.020 Urine Protein 30mg/dL (NEG-TRACE) Urine Glucose (UA) >=1000mg/dL (NEG) Urine Ketones (Stick) Tracemg/dL (NEG) Urine Blood Moderate (NEG) Urine Nitrite Negative (NEG) Urine Bilirubin Negative (NEG) Urine Urobilinogen Dipstick 0.2mg/dL (0.2 mg/dL) Urine Leukocyte Esterase Negative (NEG) Urine RBC 1-2/HPF (0-2) Urine WBC 0/HPF (0-4) Urine Squamous Epithelial Cells Few/LPF Urine Bacteria 0/HPF (0-FEW) Test 05/20/16 20:51 05/21/16 04:00 05/21/16 08:09 Glucose (Fingerstick) 192mg/dL (70-99) 290mg/dL (70-99) White Blood Count 2.0x10^3/uL (4.0-11.0) Red Blood Count 3.08x10^6/uL (3.50-5.40) Hemoglobin 9.8g/dL (12.0-15.5) Hematocrit 28.5% (36.0-47.0) Mean Corpuscular Volume 93fL (79-100) Mean Corpuscular Hemoglobin 32pg (25-35) Mean Corpuscular Hemoglobin Concent 34g/dL (31-37) Red Cell Distribution Width 15.0% (11.5-14.5) Platelet Count 60x10^3/uL (140-400) Neutrophils (%) (Auto) 71% (31-73) Lymphocytes (%) (Auto) 14% (24-48) Monocytes (%) (Auto) 14% (0-9) Eosinophils (%) (Auto) 0% (0-3) Basophils (%) (Auto) 1% (0-3) Neutrophils # (Auto) 1.4x10^3uL (1.8-7.7) Lymphocytes # (Auto) 0.3x10^3/uL (1.0-4.8) Monocytes # (Auto) 0.3x10^3/uL (0.0-1.1) Eosinophils # (Auto) 0.0x10^3/uL (0.0-0.7) Basophils # (Auto) 0.0x10^3/uL (0.0-0.2) Sodium Level 140mmol/L (136-145) Potassium Level 3.2mmol/L (3.5-5.1) Chloride Level 105mmol/L (98-107) Carbon Dioxide Level 20mmol/L (21-32) Anion Gap 15 (6-14) Blood Urea Nitrogen 10mg/dL (7-20) Creatinine 1.2mg/dL (0.6-1.0) Estimated GFR (Cockcroft-Gault) 45.2 Glucose Level 221mg/dL (70-99) Calcium Level 8.5mg/dL (8.5-10.1) Laboratory Tests Test 05/20/16 15:40 05/20/16 15:43 05/20/16 16:10 05/20/16 19:00 White Blood Count 1.1x10^3/uL (4.0-11.0) Red Blood Count 3.55x10^6/uL (3.50-5.40) Hemoglobin 11.3g/dL (12.0-15.5) Hematocrit 33.5% (36.0-47.0) Mean Corpuscular Volume 94fL (79-100) Mean Corpuscular Hemoglobin 32pg (25-35) Mean Corpuscular Hemoglobin Concent 34g/dL (31-37) Red Cell Distribution Width 15.0% (11.5-14.5) Platelet Count 76x10^3/uL (140-400) Neutrophils (%) (Auto) 59% (31-73) Lymphocytes (%) (Auto) 18% (24-48) Monocytes (%) (Auto) 21% (0-9) Eosinophils (%) (Auto) 1% (0-3) Basophils (%) (Auto) 1% (0-3) Neutrophils # (Auto) 0.7x10^3uL (1.8-7.7) Lymphocytes # (Auto) 0.2x10^3/uL (1.0-4.8) Monocytes # (Auto) 0.2x10^3/uL (0.0-1.1) Eosinophils # (Auto) 0.0x10^3/uL (0.0-0.7) Basophils # (Auto) 0.0x10^3/uL (0.0-0.2) Segmented Neutrophils % 66% (35-66) Lymphocytes % 22% (24-48) Monocytes % 11% (0-10) Eosinophils % 1% (0-5) Platelet Estimate Adequate (ADEQUATE) Polychromasia Slight Tear Drop Cells Occ Ovalocytes Occ Crenated Cell Present Schistocytes Occ Sodium Level 137mmol/L (136-145) Potassium Level 3.7mmol/L (3.5-5.1) Chloride Level 101mmol/L (98-107) Carbon Dioxide Level 21mmol/L (21-32) Anion Gap 15 (6-14) Blood Urea Nitrogen 11mg/dL (7-20) Creatinine 1.2mg/dL (0.6-1.0) Estimated GFR (Cockcroft-Gault) 45.2 BUN/Creatinine Ratio 9 (6-20) Glucose Level 316mg/dL (70-99) Lactic Acid Level 3.5mmol/L (0.4-2.0) 2.2mmol/L (0.4-2.0) Calcium Level 9.7mg/dL (8.5-10.1) Total Bilirubin 0.5mg/dL (0.2-1.0) Aspartate Amino Transf (AST/SGOT) 98U/L (15-37) Alanine Aminotransferase (ALT/SGPT) 99U/L (14-59) Alkaline Phosphatase 100U/L (46-116) Troponin I Quantitative < 0.017ng/mL (0.000-0.055) WV-Nbm-W-Type Natriuretic Peptide 83pg/mL (0-124) Total Protein 7.5g/dL (6.4-8.2) Albumin 3.2g/dL (3.4-5.0) Albumin/Globulin Ratio 0.7 (1.0-1.7) Influenza Type A Antigen Negative (NEGATIVE) Influenza Type B Antigen Positive (NEGATIVE) Urine Collection Type Unknown Urine Color Yellow Urine Clarity Clear Urine pH 6.0 Urine Specific [place] 1.020 Urine Protein 30mg/dL (NEG-TRACE) Urine Glucose (UA) >=1000mg/dL (NEG) Urine Ketones (Stick) Tracemg/dL (NEG) Urine Blood Moderate (NEG) Urine Nitrite Negative (NEG) Urine Bilirubin Negative (NEG) Urine Urobilinogen Dipstick 0.2mg/dL (0.2 mg/dL) Urine Leukocyte Esterase Negative (NEG) Urine RBC 1-2/HPF (0-2) Urine WBC 0/HPF (0-4) Urine Squamous Epithelial Cells Few/LPF Urine Bacteria 0/HPF (0-FEW) Test 05/20/16 20:51 05/21/16 04:00 05/21/16 08:09 Glucose (Fingerstick) 192mg/dL (70-99) 290mg/dL (70-99) White Blood Count 2.0x10^3/uL (4.0-11.0) Red Blood Count 3.08x10^6/uL (3.50-5.40) Hemoglobin 9.8g/dL (12.0-15.5) Hematocrit 28.5% (36.0-47.0) Mean Corpuscular Volume 93fL (79-100) Mean Corpuscular Hemoglobin 32pg (25-35) Mean Corpuscular Hemoglobin Concent 34g/dL (31-37) Red Cell Distribution Width 15.0% (11.5-14.5) Platelet Count 60x10^3/uL (140-400) Neutrophils (%) (Auto) 71% (31-73) Lymphocytes (%) (Auto) 14% (24-48) Monocytes (%) (Auto) 14% (0-9) Eosinophils (%) (Auto) 0% (0-3) Basophils (%) (Auto) 1% (0-3) Neutrophils # (Auto) 1.4x10^3uL (1.8-7.7) Lymphocytes # (Auto) 0.3x10^3/uL (1.0-4.8) Monocytes # (Auto) 0.3x10^3/uL (0.0-1.1) Eosinophils # (Auto) 0.0x10^3/uL (0.0-0.7) Basophils # (Auto) 0.0x10^3/uL (0.0-0.2) Sodium Level 140mmol/L (136-145) Potassium Level 3.2mmol/L (3.5-5.1) Chloride Level 105mmol/L (98-107) Carbon Dioxide Level 20mmol/L (21-32) Anion Gap 15 (6-14) Blood Urea Nitrogen 10mg/dL (7-20) Creatinine 1.2mg/dL (0.6-1.0) Estimated GFR (Cockcroft-Gault) 45.2 Glucose Level 221mg/dL (70-99) Calcium Level 8.5mg/dL (8.5-10.1) Assessment/Plan Assessment/Plan 66 yo female with MM on chemotherapy admitted for neutropenic fevers and tested positive for the Flu. 1. Neutropenic fevers. Most likely this is from the flu, but given neutropenia, she is on broad spectrum abx and tamiflu. ID has been consulted and I would defer further abx to them. She received granix, and would at least give her one more day. Her ANC this morning is 1.4. 2. MM. She will hold the revlimid for the time being, and should continue valcyclovir prophylaxis 3. Cytopenia. From infection and chemotherapy. continue to trend cbc ALLY NASSAR MD May 21, 2016 11:29
--- NOTE | 2016-05-21 12:31 | PDOC ---
Infectious Disease Note Vital Sign Vital Signs Vital Signs Date Time Temp Pulse Resp B/P Pulse Ox O2 Delivery O2 Flow Rate FiO2 05/21/16 11:25 Room Air 05/21/16 07:39 96 05/21/16 07:15 99.1 105 14 136/67 99.1 Labs Lab Laboratory Tests Test 05/20/16 15:40 05/20/16 15:43 05/20/16 16:10 05/20/16 19:00 White Blood Count 1.1x10^3/uL (4.0-11.0) Red Blood Count 3.55x10^6/uL (3.50-5.40) Hemoglobin 11.3g/dL (12.0-15.5) Hematocrit 33.5% (36.0-47.0) Mean Corpuscular Volume 94fL (79-100) Mean Corpuscular Hemoglobin 32pg (25-35) Mean Corpuscular Hemoglobin Concent 34g/dL (31-37) Red Cell Distribution Width 15.0% (11.5-14.5) Platelet Count 76x10^3/uL (140-400) Neutrophils (%) (Auto) 59% (31-73) Lymphocytes (%) (Auto) 18% (24-48) Monocytes (%) (Auto) 21% (0-9) Eosinophils (%) (Auto) 1% (0-3) Basophils (%) (Auto) 1% (0-3) Neutrophils # (Auto) 0.7x10^3uL (1.8-7.7) Lymphocytes # (Auto) 0.2x10^3/uL (1.0-4.8) Monocytes # (Auto) 0.2x10^3/uL (0.0-1.1) Eosinophils # (Auto) 0.0x10^3/uL (0.0-0.7) Basophils # (Auto) 0.0x10^3/uL (0.0-0.2) Segmented Neutrophils % 66% (35-66) Lymphocytes % 22% (24-48) Monocytes % 11% (0-10) Eosinophils % 1% (0-5) Platelet Estimate Adequate (ADEQUATE) Polychromasia Slight Tear Drop Cells Occ Ovalocytes Occ Crenated Cell Present Schistocytes Occ Sodium Level 137mmol/L (136-145) Potassium Level 3.7mmol/L (3.5-5.1) Chloride Level 101mmol/L (98-107) Carbon Dioxide Level 21mmol/L (21-32) Anion Gap 15 (6-14) Blood Urea Nitrogen 11mg/dL (7-20) Creatinine 1.2mg/dL (0.6-1.0) Estimated GFR (Cockcroft-Gault) 45.2 BUN/Creatinine Ratio 9 (6-20) Glucose Level 316mg/dL (70-99) Lactic Acid Level 3.5mmol/L (0.4-2.0) 2.2mmol/L (0.4-2.0) Calcium Level 9.7mg/dL (8.5-10.1) Total Bilirubin 0.5mg/dL (0.2-1.0) Aspartate Amino Transf (AST/SGOT) 98U/L (15-37) Alanine Aminotransferase (ALT/SGPT) 99U/L (14-59) Alkaline Phosphatase 100U/L (46-116) Troponin I Quantitative < 0.017ng/mL (0.000-0.055) US-Oua-D-Type Natriuretic Peptide 83pg/mL (0-124) Total Protein 7.5g/dL (6.4-8.2) Albumin 3.2g/dL (3.4-5.0) Albumin/Globulin Ratio 0.7 (1.0-1.7) Influenza Type A Antigen Negative (NEGATIVE) Influenza Type B Antigen Positive (NEGATIVE) Urine Collection Type Unknown Urine Color Yellow Urine Clarity Clear Urine pH 6.0 Urine Specific [place] 1.020 Urine Protein 30mg/dL (NEG-TRACE) Urine Glucose (UA) >=1000mg/dL (NEG) Urine Ketones (Stick) Tracemg/dL (NEG) Urine Blood Moderate (NEG) Urine Nitrite Negative (NEG) Urine Bilirubin Negative (NEG) Urine Urobilinogen Dipstick 0.2mg/dL (0.2 mg/dL) Urine Leukocyte Esterase Negative (NEG) Urine RBC 1-2/HPF (0-2) Urine WBC 0/HPF (0-4) Urine Squamous Epithelial Cells Few/LPF Urine Bacteria 0/HPF (0-FEW) Test 05/20/16 20:51 05/21/16 04:00 05/21/16 08:09 Glucose (Fingerstick) 192mg/dL (70-99) 290mg/dL (70-99) White Blood Count 2.0x10^3/uL (4.0-11.0) Red Blood Count 3.08x10^6/uL (3.50-5.40) Hemoglobin 9.8g/dL (12.0-15.5) Hematocrit 28.5% (36.0-47.0) Mean Corpuscular Volume 93fL (79-100) Mean Corpuscular Hemoglobin 32pg (25-35) Mean Corpuscular Hemoglobin Concent 34g/dL (31-37) Red Cell Distribution Width 15.0% (11.5-14.5) Platelet Count 60x10^3/uL (140-400) Neutrophils (%) (Auto) 71% (31-73) Lymphocytes (%) (Auto) 14% (24-48) Monocytes (%) (Auto) 14% (0-9) Eosinophils (%) (Auto) 0% (0-3) Basophils (%) (Auto) 1% (0-3) Neutrophils # (Auto) 1.4x10^3uL (1.8-7.7) Lymphocytes # (Auto) 0.3x10^3/uL (1.0-4.8) Monocytes # (Auto) 0.3x10^3/uL (0.0-1.1) Eosinophils # (Auto) 0.0x10^3/uL (0.0-0.7) Basophils # (Auto) 0.0x10^3/uL (0.0-0.2) Sodium Level 140mmol/L (136-145) Potassium Level 3.2mmol/L (3.5-5.1) Chloride Level 105mmol/L (98-107) Carbon Dioxide Level 20mmol/L (21-32) Anion Gap 15 (6-14) Blood Urea Nitrogen 10mg/dL (7-20) Creatinine 1.2mg/dL (0.6-1.0) Estimated GFR (Cockcroft-Gault) 45.2 Glucose Level 221mg/dL (70-99) Calcium Level 8.5mg/dL (8.5-10.1) Objective Assessment Neutropenic fever -On Granix Influenza B Lactic acidosis Multiple myeloma. -Velcade and Zometa. Last dose 05/16. -Revlimid daily Elevated liver enzymes Diabetes Plan Plan of Care Continue vanc and Zosyn for now, clinically improving Tamiflu for 5 days Valtrex prophylaxis f/u labs/BC Thank you [id number] Attending Co-Sign The patient was seen and interviewed as well as examined at the bedside. The chart was reviewed. The case was discussed. Agree with the plan of care. d/w KASSANDRA NORMAN APRN May 21, 2016 12:31 RANDALL PEÑA MD May 21, 2016 14:30
[2016-05-21] MEDS: valACYclovir 500 MG TABLET. PO SCH ×2 (12:32→21:16)
[2016-05-21 15:00] VITALS: BP 111/56
[2016-05-21] MEDS: VANCOMYCIN PER PHARMACY MC PRN (16:52)
[2016-05-21] MEDS ORDERED: VANCOMYCIN 1.25 GM in IV NORMAL SALINE 250ML 250 ML IV SCH (18:00)
[2016-05-21 19:00] VITALS: BP 122/66
[2016-05-21] MEDS: OSELTAMIVIR 30 MG CAPSULE PO SCH (21:16)
[2016-05-21] MEDS: TBO-FILGRASTIM 480 MCG/0.8 ML SYRINGE. SQ SCH (21:20)
[2016-05-21 22:57] VITALS: BP 127/70
--- NOTE | 2016-05-22 01:12 | CONS ---
DATE OF CONSULTATION: 05/20/2016 REFERRING PHYSICIAN: ____ REASON FOR CONSULTATION: Neutropenia and influenza B. HISTORY OF PRESENT ILLNESS: This patient is a pleasant 66-year-old woman with multiple myeloma diagnosed in 2014. She is followed by oncologist, Dr. Cabrera. Last dose of Velcade and Zometa was on 05/16/2016. She also received daily Revlimid. About 3 weeks ago, she developed a cough which she had contributed to the Velcade. However, the cough persisted and became progressively worse over the last 4 days. She was prescribed Augmentin without improvement. She complained of postnasal drip, runny nose, fevers as high as 101 and chills. Denies chest pain or shortness of air. She received a flu vaccine this season. On arrival to ER, she was afebrile with a WBC count of 1100, segs 66%. Chest x-ray showed no acute findings. She was tested positive for influenza B. She was started on a course of Tamiflu. In addition, given immunocompromised state, she was started on vancomycin and Zosyn empirically as well. PAST MEDICAL HISTORY: Multiple myeloma, diagnosed in 2014 status post auto bone marrow transplant and chemotherapy. Diabetes mellitus type 2, hypertension, and hyperlipidemia. PAST SURGICAL HISTORY: Hernia repair, tonsillectomy, and repair of right ankle fracture. FAMILY HISTORY: Positive for lung cancer, colon cancer, breast cancer and cerebrovascular accident. ALLERGIES: Denies allergies to antibiotics. LISTED BETA BLOCKERS, CONTRAST DYE, HYDROCODONE AND PIOGLITAZONE. MEDICATIONS: Vancomycin, Zosyn, Tamiflu, Granix, Valtrex. SOCIAL HISTORY: The patient is . Nonsmoker. No history of alcohol or illicit drug use. REVIEW OF SYSTEMS: The patient reports feeling better since admission. Denies headache or sore throat. She continues to have nasal drainage and mild cough. No further fevers or chills. Appetite is good. Denies nausea, vomiting or diarrhea. Denies rash. Denies dysuria, frequency or urgency. PHYSICAL EXAMINATION: GENERAL: female sitting on the side of the bed, in no apparent distress. VITAL SIGNS: Temperature is 99.1, blood pressure 136/67, heart rate 105, respiratory rate 14, and pulse oximetry is 96% on room air. Weight is 158 pounds. HEENT: Pupils equally round, reactive. Normal conjunctivae. Oral mucosa is pink and moist. NECK: Supple, no adenopathy present. LUNGS: Clear to auscultation. HEART: Normal S1, S2. ABDOMEN: Not distended. Bowel sounds are present, soft, and nontender. EXTREMITIES: No gross edema or cyanosis. SKIN: Without rash. Warm to touch. NEUROLOGIC: Alert and oriented x 3. Moves all extremities. LABORATORY DATA: Today's WBC 2.0, hemoglobin 9.8, platelet count 60,000, and neutrophils 71%. Sodium 140, potassium 3.2, creatinine 1.2, BUN 10, and glucose 221. Lactic acid 2.2 from 3.5 on admission. Total bilirubin 0.5, AST 98, and ALT 99. Troponin less than 0.017. BNP 83. Albumin 3.2. Urinalysis unremarkable for infection. Influenza screen B positive. Chest x-ray unremarkable. Blood cultures pending. IMPRESSION: 1. Neutropenic fever. 2. Influenza B. 3. Lactic acidosis. 4. Multiple myeloma. 5. Elevated LFTs. 6. Diabetes mellitus. 7. Elevated liver enzymes. PLAN: Clinically improving. Continue vancomycin and Zosyn for now. Also, continue the Tamiflu as well as the Valtrex prophylaxis. We will follow up on laboratory values in the morning and blood cultures. Supportive care. Thank you, . ____ for asking us to participate in this patient's care. Should you have further questions or concerns, please call. RANDALL PEÑA MD DR: [email or web address] JOB#: [id number] / [id number]
[2016-05-22 03:00] VITALS: BP 123/72
[2016-05-22 05:36] LABS: BASO % 1 % (0-3); EOS % 1 % (0-3); HEMATOCRIT 29.1 % (36.0-47.0); HEMOGLOBIN 9.9 g/dL (12.0-15.5); LYMPH # 0.5 x10^3/uL (1.0-4.8); LYMPH % 14 % (24-48); MEAN CORPUSCULAR HEMOGLOBIN 32 pg (25-35); MEAN CORPUSCULAR HGB CONC 34 g/dL (31-37); MEAN CORPUSCULAR VOLUME 93 fL (79-100); MONO % 12 % (0-9); NEUT % 72 % (31-73); PLATELET COUNT 52 x10^3/uL (140-400); RED BLOOD COUNT 3.12 x10^6/uL (3.50-5.40); RED CELL DISTRIBUTION WIDTH 14.9 % (11.5-14.5); WHITE BLOOD COUNT 3.2 x10^3/uL (4.0-11.0)
--- NOTE | 2016-05-22 05:41 | ACF ---
Admission Forms Criteria FEBRILE ILLNESS, WITHOUT FOCAL INFECTION Clinical Indications for Admission to Inpatient Care (Place 'X' for any and all applicable criteria): Admission is indicated for ANY ONE of the following (1)(2)(3): [ ] I. Bacteremia [ ]II. Suspected or identified specific infection requiring hospitalization (eg, meningitis, endocarditis) [ ]III. Hemodynamic instability [ ]IV. Altered mental status [ ]V. Failure or unavailability of outpatient antimicrobial treatment [ ]. Hypoxemia [ ]VII. Seizures [X]VIII. High-risk febrile neutropenia [ ]IX. Need for parenteral antibiotic in patient who is likely to abuse vascular access device (eg, injection drug user) [A](7) [ ]X. Temperature greater than 104.9 degrees F (40.5 degrees C) (oral) [ ]XI. Inpatient admission required rather than observation care because of ANY ONE of the following: [ ]a) Specific infection identified that is too severe for outpatient treatment or observation care trial [ ]b) Metabolic disorder (eg, hypoglycemia, hyperglycemia, metabolic acidosis) that is severe or persistent [ ]c) Temperature greater than 103.1 degrees F (39.5 degrees C) ( oral) that is not responsive to observation care treatment [ ]d) IV fluid to replace significant ongoing (eg, for over 24 hours) losses (> 3 L/m2 per day) [ ]e) Supplemental oxygen or respiratory treatments for over 24 hours that is performable only in acute inpatient setting [ ]f) Parenteral nutrition regimen need that must be implemented on inpatient basis [ ]g) Strict or protective (eg, laminar flow) isolation [ ]h) Other condition, treatment or monitoring requiring inpatient admission Extended stay beyond goal length of stay may be needed for(1)(3) [ ]a) Sepsis or septic shock(22) [ ]b) Positive blood cultures [ ]c) Insufficient oral intake [ ]d) High-risk febrile neutropenia(29)(30) [ ]e) Continued fever and clinical instability [ ]f) Clinically active comorbid illness (e.g,heart failure, renal failure , diabetes) The [facility] content [facility] by [facility] has been revised. The portions of the content which have been revised are identified through the use of italic text or in bold, and [facility] has neither reviewed nor approved the modified material. All other unmodified content is copyright [facility]. Please see references footnoted in the original [facility] edition 2016 Admission Criteria Met?: Yes JOELLE ANGUIANO May 22, 2016 05:41
[2016-05-22 05:49] LABS: CALCIUM 8.5 mg/dL (8.5-10.1); CREATININE 1.1 mg/dL (0.6-1.0); POTASSIUM 3.2 mmol/L (3.5-5.1)
[2016-05-22] MEDS: PIPERACILLIN/TAZOBACTAM 4.5 GM in IV NORMAL SALINE 100ML 100 ML IV SCH ×2 (05:58→11:31)
[2016-05-22 07:00] VITALS: BP 117/62
--- NOTE | 2016-05-22 07:54 | PDOC ---
PROGRESS NOTES Chief Complaint Chief Complaint cc: neutropenia Neutropenic fever Influenza B Multiple myeloma. Elevated liver enzymes Diabetes Plan Vancomycin, Zosyn and Tamiflu Neutropenic precautions SSI Replace potassium Follow ID recommendatons. History of Present Illness History of Present Illness no fever wbc improving. Vitals Vitals Vital Signs Date Time Temp Pulse Resp B/P Pulse Ox O2 Delivery O2 Flow Rate FiO2 05/22/16 03:00 98.4 86 20 123/72 98 Room Air 98.4 Physical Exam General: Alert, Oriented X3 Heart: Regular rate, Normal S1, Normal S2 Lungs: Clear Abdomen: Normal bowel sounds, Soft Extremities: No cyanosis, No edema Skin: No significant lesion Labs LABS Laboratory Tests Test 05/21/16 08:09 05/21/16 11:18 05/21/16 16:02 05/21/16 20:47 Glucose (Fingerstick) 290mg/dL (70-99) 263mg/dL (70-99) 273mg/dL (70-99) 232mg/dL (70-99) Test 05/22/16 04:40 White Blood Count 3.2x10^3/uL (4.0-11.0) Red Blood Count 3.12x10^6/uL (3.50-5.40) Hemoglobin 9.9g/dL (12.0-15.5) Hematocrit 29.1% (36.0-47.0) Mean Corpuscular Volume 93fL (79-100) Mean Corpuscular Hemoglobin 32pg (25-35) Mean Corpuscular Hemoglobin Concent 34g/dL (31-37) Red Cell Distribution Width 14.9% (11.5-14.5) Platelet Count 52x10^3/uL (140-400) Neutrophils (%) (Auto) 72% (31-73) Lymphocytes (%) (Auto) 14% (24-48) Monocytes (%) (Auto) 12% (0-9) Eosinophils (%) (Auto) 1% (0-3) Basophils (%) (Auto) 1% (0-3) Neutrophils # (Auto) 2.3x10^3uL (1.8-7.7) Lymphocytes # (Auto) 0.5x10^3/uL (1.0-4.8) Monocytes # (Auto) 0.4x10^3/uL (0.0-1.1) Eosinophils # (Auto) 0.0x10^3/uL (0.0-0.7) Basophils # (Auto) 0.0x10^3/uL (0.0-0.2) Sodium Level 145mmol/L (136-145) Potassium Level 3.2mmol/L (3.5-5.1) Chloride Level 111mmol/L (98-107) Carbon Dioxide Level 21mmol/L (21-32) Anion Gap 13 (6-14) Blood Urea Nitrogen 9mg/dL (7-20) Creatinine 1.1mg/dL (0.6-1.0) Estimated GFR (Cockcroft-Gault) 50.0 Glucose Level 193mg/dL (70-99) Calcium Level 8.5mg/dL (8.5-10.1) Assessment and Plan Assessmemt and Plan Problems Medical Problems: (1) Fever Status: Acute (2) Influenza due to influenza virus, type B Status: Acute (3) Lactic acidosis Status: Acute (4) Multiple myeloma Status: Acute (5) Neutropenic fever Status: Acute Problems: Comment Review of Relevant I have reviewed the following items marcelino (where applicable) has been applied. Labs Laboratory Tests Test 05/20/16 15:40 05/20/16 15:43 05/20/16 16:10 05/20/16 19:00 White Blood Count 1.1x10^3/uL (4.0-11.0) Red Blood Count 3.55x10^6/uL (3.50-5.40) Hemoglobin 11.3g/dL (12.0-15.5) Hematocrit 33.5% (36.0-47.0) Mean Corpuscular Volume 94fL (79-100) Mean Corpuscular Hemoglobin 32pg (25-35) Mean Corpuscular Hemoglobin Concent 34g/dL (31-37) Red Cell Distribution Width 15.0% (11.5-14.5) Platelet Count 76x10^3/uL (140-400) Neutrophils (%) (Auto) 59% (31-73) Lymphocytes (%) (Auto) 18% (24-48) Monocytes (%) (Auto) 21% (0-9) Eosinophils (%) (Auto) 1% (0-3) Basophils (%) (Auto) 1% (0-3) Neutrophils # (Auto) 0.7x10^3uL (1.8-7.7) Lymphocytes # (Auto) 0.2x10^3/uL (1.0-4.8) Monocytes # (Auto) 0.2x10^3/uL (0.0-1.1) Eosinophils # (Auto) 0.0x10^3/uL (0.0-0.7) Basophils # (Auto) 0.0x10^3/uL (0.0-0.2) Segmented Neutrophils % 66% (35-66) Lymphocytes % 22% (24-48) Monocytes % 11% (0-10) Eosinophils % 1% (0-5) Platelet Estimate Adequate (ADEQUATE) Polychromasia Slight Tear Drop Cells Occ Ovalocytes Occ Crenated Cell Present Schistocytes Occ Sodium Level 137mmol/L (136-145) Potassium Level 3.7mmol/L (3.5-5.1) Chloride Level 101mmol/L (98-107) Carbon Dioxide Level 21mmol/L (21-32) Anion Gap 15 (6-14) Blood Urea Nitrogen 11mg/dL (7-20) Creatinine 1.2mg/dL (0.6-1.0) Estimated GFR (Cockcroft-Gault) 45.2 BUN/Creatinine Ratio 9 (6-20) Glucose Level 316mg/dL (70-99) Lactic Acid Level 3.5mmol/L (0.4-2.0) 2.2mmol/L (0.4-2.0) Calcium Level 9.7mg/dL (8.5-10.1) Total Bilirubin 0.5mg/dL (0.2-1.0) Aspartate Amino Transf (AST/SGOT) 98U/L (15-37) Alanine Aminotransferase (ALT/SGPT) 99U/L (14-59) Alkaline Phosphatase 100U/L (46-116) Troponin I Quantitative < 0.017ng/mL (0.000-0.055) BY-Wnu-A-Type Natriuretic Peptide 83pg/mL (0-124) Total Protein 7.5g/dL (6.4-8.2) Albumin 3.2g/dL (3.4-5.0) Albumin/Globulin Ratio 0.7 (1.0-1.7) Influenza Type A Antigen Negative (NEGATIVE) Influenza Type B Antigen Positive (NEGATIVE) Urine Collection Type Unknown Urine Color Yellow Urine Clarity Clear Urine pH 6.0 Urine Specific [place] 1.020 Urine Protein 30mg/dL (NEG-TRACE) Urine Glucose (UA) >=1000mg/dL (NEG) Urine Ketones (Stick) Tracemg/dL (NEG) Urine Blood Moderate (NEG) Urine Nitrite Negative (NEG) Urine Bilirubin Negative (NEG) Urine Urobilinogen Dipstick 0.2mg/dL (0.2 mg/dL) Urine Leukocyte Esterase Negative (NEG) Urine RBC 1-2/HPF (0-2) Urine WBC 0/HPF (0-4) Urine Squamous Epithelial Cells Few/LPF Urine Bacteria 0/HPF (0-FEW) Test 05/20/16 20:51 05/21/16 04:00 05/21/16 08:09 05/21/16 11:18 Glucose (Fingerstick) 192mg/dL (70-99) 290mg/dL (70-99) 263mg/dL (70-99) White Blood Count 2.0x10^3/uL (4.0-11.0) Red Blood Count 3.08x10^6/uL (3.50-5.40) Hemoglobin 9.8g/dL (12.0-15.5) Hematocrit 28.5% (36.0-47.0) Mean Corpuscular Volume 93fL (79-100) Mean Corpuscular Hemoglobin 32pg (25-35) Mean Corpuscular Hemoglobin Concent 34g/dL (31-37) Red Cell Distribution Width 15.0% (11.5-14.5) Platelet Count 60x10^3/uL (140-400) Neutrophils (%) (Auto) 71% (31-73) Lymphocytes (%) (Auto) 14% (24-48) Monocytes (%) (Auto) 14% (0-9) Eosinophils (%) (Auto) 0% (0-3) Basophils (%) (Auto) 1% (0-3) Neutrophils # (Auto) 1.4x10^3uL (1.8-7.7) Lymphocytes # (Auto) 0.3x10^3/uL (1.0-4.8) Monocytes # (Auto) 0.3x10^3/uL (0.0-1.1) Eosinophils # (Auto) 0.0x10^3/uL (0.0-0.7) Basophils # (Auto) 0.0x10^3/uL (0.0-0.2) Sodium Level 140mmol/L (136-145) Potassium Level 3.2mmol/L (3.5-5.1) Chloride Level 105mmol/L (98-107) Carbon Dioxide Level 20mmol/L (21-32) Anion Gap 15 (6-14) Blood Urea Nitrogen 10mg/dL (7-20) Creatinine 1.2mg/dL (0.6-1.0) Estimated GFR (Cockcroft-Gault) 45.2 Glucose Level 221mg/dL (70-99) Calcium Level 8.5mg/dL (8.5-10.1) Test 05/21/16 16:02 05/21/16 20:47 05/22/16 04:40 Glucose (Fingerstick) 273mg/dL (70-99) 232mg/dL (70-99) White Blood Count 3.2x10^3/uL (4.0-11.0) Red Blood Count 3.12x10^6/uL (3.50-5.40) Hemoglobin 9.9g/dL (12.0-15.5) Hematocrit 29.1% (36.0-47.0) Mean Corpuscular Volume 93fL (79-100) Mean Corpuscular Hemoglobin 32pg (25-35) Mean Corpuscular Hemoglobin Concent 34g/dL (31-37) Red Cell Distribution Width 14.9% (11.5-14.5) Platelet Count 52x10^3/uL (140-400) Neutrophils (%) (Auto) 72% (31-73) Lymphocytes (%) (Auto) 14% (24-48) Monocytes (%) (Auto) 12% (0-9) Eosinophils (%) (Auto) 1% (0-3) Basophils (%) (Auto) 1% (0-3) Neutrophils # (Auto) 2.3x10^3uL (1.8-7.7) Lymphocytes # (Auto) 0.5x10^3/uL (1.0-4.8) Monocytes # (Auto) 0.4x10^3/uL (0.0-1.1) Eosinophils # (Auto) 0.0x10^3/uL (0.0-0.7) Basophils # (Auto) 0.0x10^3/uL (0.0-0.2) Sodium Level 145mmol/L (136-145) Potassium Level 3.2mmol/L (3.5-5.1) Chloride Level 111mmol/L (98-107) Carbon Dioxide Level 21mmol/L (21-32) Anion Gap 13 (6-14) Blood Urea Nitrogen 9mg/dL (7-20) Creatinine 1.1mg/dL (0.6-1.0) Estimated GFR (Cockcroft-Gault) 50.0 Glucose Level 193mg/dL (70-99) Calcium Level 8.5mg/dL (8.5-10.1) Laboratory Tests Test 05/21/16 08:09 05/21/16 11:18 05/21/16 16:02 05/21/16 20:47 Glucose (Fingerstick) 290mg/dL (70-99) 263mg/dL (70-99) 273mg/dL (70-99) 232mg/dL (70-99) Test 05/22/16 04:40 White Blood Count 3.2x10^3/uL (4.0-11.0) Red Blood Count 3.12x10^6/uL (3.50-5.40) Hemoglobin 9.9g/dL (12.0-15.5) Hematocrit 29.1% (36.0-47.0) Mean Corpuscular Volume 93fL (79-100) Mean Corpuscular Hemoglobin 32pg (25-35) Mean Corpuscular Hemoglobin Concent 34g/dL (31-37) Red Cell Distribution Width 14.9% (11.5-14.5) Platelet Count 52x10^3/uL (140-400) Neutrophils (%) (Auto) 72% (31-73) Lymphocytes (%) (Auto) 14% (24-48) Monocytes (%) (Auto) 12% (0-9) Eosinophils (%) (Auto) 1% (0-3) Basophils (%) (Auto) 1% (0-3) Neutrophils # (Auto) 2.3x10^3uL (1.8-7.7) Lymphocytes # (Auto) 0.5x10^3/uL (1.0-4.8) Monocytes # (Auto) 0.4x10^3/uL (0.0-1.1) Eosinophils # (Auto) 0.0x10^3/uL (0.0-0.7) Basophils # (Auto) 0.0x10^3/uL (0.0-0.2) Sodium Level 145mmol/L (136-145) Potassium Level 3.2mmol/L (3.5-5.1) Chloride Level 111mmol/L (98-107) Carbon Dioxide Level 21mmol/L (21-32) Anion Gap 13 (6-14) Blood Urea Nitrogen 9mg/dL (7-20) Creatinine 1.1mg/dL (0.6-1.0) Estimated GFR (Cockcroft-Gault) 50.0 Glucose Level 193mg/dL (70-99) Calcium Level 8.5mg/dL (8.5-10.1) Microbiology 05/20/16 Blood Culture - Preliminary, Resulted NO GROWTH AFTER 1 DAY Medications Current Medications Sodium Chloride (Iv Sodium Chloride 0.9% 500ml Bag) 500 ml @ 500 mls/hr 1X ONCE IV Last administered on 05/20/16 16:27; Start 05/20/16 at 16:30; Stop at 17:29; Status DC Fentanyl Citrate (Fentanyl 2ml Vial) 25 mcg PRN Q15MIN PRN IV PAIN GREATER THAN 3/10 Last administered on 05/20/16 16:27; Start 05/20/16 at 16:15; Stop at 16:14; Status DC Acetaminophen 1000 mg 1,000 mg 1X ONCE PO Last administered on 05/20/16 16:26 ; Start 05/20/16 at 16:30; Stop 05/20/16 at 16:31; Status DC Sodium Chloride (Iv Sodium Chloride 0.9% 1000ml Bag) 1,000 ml @ 125 mls/hr 1X ONCE IV Last administered on 05/20/16 16:45; Start 05/20/16 at 16:45; Stop at 00:44; Status DC Oseltamivir Phosphate (Tamiflu) 75 mg BID PO Last administered on 05/21/16 09: 15; Start 05/20/16 at 17:00; Stop 05/21/16 at 16:44; Status DC Piperacillin Sod/ Tazobactam Sod 1 each 1 each PRN DAILY PRN MC SEE COMMENTS; Start 05/20/16 at 16:45; Stop 05/21/16 at 16:43; Status DC Piperacillin Sod/ Tazobactam Sod/ Sodium Chloride (Zosyn/Iv Sodium Chloride 0.9 % 100ml) 100 ml @ 200 mls/hr 1X ONCE IV Last administered on 05/20/16 17:01 ; Start 05/20/16 at 17:00; Stop 05/20/16 at 17:29; Status DC Vancomycin HCl 1 each 1 each PRN DAILY PRN MC SEE COMMENTS Last administered on 05/21/16 16:52; Start 05/20/16 at 17:00 Vancomycin HCl/ Sodium Chloride (Iv Sodium Chloride 0.9% 500ml Bag) 500 ml @ 250 mls/hr 1X ONCE IV Last administered on 05/20/16 17:43; Start 05/20/16 at 18:00; Stop 05/20/16 at 19:59; Status DC Ondansetron HCl 4 mg 4 mg PRN Q8HRS PRN IV NAUSEA/VOMITING; Start 05/20/16 at 17:00; Stop 05/21/16 at 16:59; Status DC Sodium Chloride (Iv Sodium Chloride 0.9% 1000ml Bag) 1,000 ml @ 125 mls/hr Q8H IV Last administered on 05/21/16 08:55; Start 05/20/16 at 16:55; Stop at 16:54; Status DC Acetaminophen (Tylenol) 650 mg PRN Q4HRS PRN PO FEVER; Start 05/20/16 at 17:00 ; Stop 05/21/16 at 16:59; Status DC Albuterol/ Ipratropium (Duoneb) 3 ml RTQID NEB Last administered on 05/21/16 15:28; Start 05/20/16 at 20:00; Stop 05/21/16 at 19:59; Status DC Insulin Aspart (Novolog) 0-5 UNITS TIDWMEALS SQ Last administered on 05/21/16 17:16; Start 05/21/16 at 08:00 Dextrose 12.5 gm 12.5 gm PRN Q15MIN PRN IV SEE COMMENTS; Start 05/20/16 at 17: 30 Piperacillin Sod/ Tazobactam Sod 4.5 gm/Sodium Chloride 100 ml @ 200 mls/hr Q6HRS IV Last administered on 05/22/16 05:58; Start 05/21/16 at 00:00 Vancomycin HCl/ Sodium Chloride (Iv Sodium Chloride 0.9% 250ml) 250 ml @ 167 mls/hr Q24H IV Last administered on 05/21/16 18:08; Start 05/21/16 at 18:00 Vancomycin HCl 1 each 1X ONCE MC ; Start 05/22/16 at 17:30; Stop 05/22/16 at 17 :31 Tbo-Filgrastim (Granix) 480 mcg QHS SQ Last administered on 05/21/16 21:20; Start 05/20/16 at 22:00 Potassium Chloride (Klor-Con) 40 meq 1X ONCE PO Last administered on 10:12; Start 05/21/16 at 09:45; Stop 05/21/16 at 09:47; Status DC Valacyclovir HCl (Valtrex) 500 mg BID PO Last administered on 05/21/16 21:16; Start 05/21/16 at 11:30 Oseltamivir Phosphate (Tamiflu) 30 mg BID PO Last administered on 05/21/16 21: 16; Start 05/21/16 at 21:00; Stop 05/25/16 at 09:01 Active Scripts Active Reported Aspirin 81 Mg Tab.chew 81 Mg PO DAILY Metformin Hcl 1,000 Mg Tablet 1 Tab PO BID Revlimid (Lenalidomide) 10 Mg Capsule 10 Mg PO DAILY Benicar (Olmesartan Medoxomil) 20 Mg Tablet 0.5 Tab PO DAILY Pravastatin Sodium 20 Mg Tablet 1 Tab PO DAILY Vitals/I & O Vital Sign - Last 24 Hours 05/21/16 05/21/16 05/21/16 05/21/16 08:00 11:15 11:25 15:00 Temp 98.8 99.0 98.8 99.0 Pulse 91 97 Resp 20 20 B/P 115/65 111/56 Pulse Ox 100 95 O2 Delivery Room Air Room Air Room Air 05/21/16 05/21/16 05/21/16 05/21/16 15:28 19:00 19:40 22:57 Temp 98.1 96.1 98.1 96.1 Pulse 92 86 Resp 20 20 B/P 122/66 127/70 Pulse Ox 94 95 O2 Delivery Room Air Room Air Room Air Room Air 05/22/16 03:00 Temp 98.4 98.4 Pulse 86 Resp 20 B/P 123/72 Pulse Ox 98 O2 Delivery Room Air Intake and Output 05/21/16 05/21/16 05/22/16 15:00 23:00 07:00 Intake Total 700 ml 970 ml 100 ml Balance 700 ml 970 ml 100 ml AMI SANCHEZ MD May 22, 2016 07:54
[2016-05-22] MEDS ORDERED: POTASSIUM CHLORIDE 20 MEQ TABLET.ER. PO ONE (08:00)
[2016-05-22] MEDS: INSULIN ASPART 300 UNITS/3 ML INSULN.PEN SQ SCH ×2 (08:19→11:37)
[2016-05-22] MEDS: valACYclovir 500 MG TABLET. PO SCH (09:15)
[2016-05-22] MEDS: OSELTAMIVIR 30 MG CAPSULE PO SCH (09:15)
[2016-05-22 11:00] VITALS: BP 131/69
--- NOTE | 2016-05-22 11:40 | PDOC ---
PROGRESS NOTES Subjective Subjective Pt seen for neutropenic fever. Has MM Currently denies any fevers. She feels a little anxious this morning Objective Objective Vital Signs Date Time Temp Pulse Resp B/P Pulse Ox O2 Delivery O2 Flow Rate FiO2 05/22/16 08:00 Room Air 05/22/16 07:00 97.9 91 14 117/62 97 97.9 Intake and Output 05/22/16 07:00 Intake Total 1770 ml Balance 1770 ml Intake Oral 1420 ml IV Total 350 ml # Voids 2 Physical Exam Abdomen: Normal bowel sounds, Soft Heart: Regular rate, Normal S1, Normal S2 Extremities: No clubbing General: Alert, Oriented X3 HEENT: Atraumatic, PERRLA Lungs: Clear to auscultation MUSCULOSKELETAL: No joint tenderness Assessment Assessment Problems Medical Problems: (1) Fever Status: Acute (2) Influenza due to influenza virus, type B Status: Acute (3) Lactic acidosis Status: Acute (4) Multiple myeloma Status: Acute (5) Neutropenic fever Status: Acute Plan Plan of Care 66 yo female with MM on chemotherapy admitted for neutropenic fevers and tested positive for the Flu. 1. Neutropenic fevers. Most likely this is from the flu, Neutropenia has resolved. I discontinued granix. ABX as per ID 2. MM. She will hold the revlimid for the time being, and should continue valcyclovir prophylaxis 3. Cytopenia. From infection and chemotherapy. continue to trend cbc 4. Dispo. Pt is anxious for discharged. She has an appt to see Dr. Cabrera tomorrow. If she remains in hospital he will see her here, if she is discharged he will see her as an outpatient Comment Review of Relevant I have reviewed the following items marcelino (where applicable) has been applied. Labs Laboratory Tests Test 05/20/16 15:40 05/20/16 15:43 05/20/16 16:10 05/20/16 19:00 White Blood Count 1.1x10^3/uL (4.0-11.0) Red Blood Count 3.55x10^6/uL (3.50-5.40) Hemoglobin 11.3g/dL (12.0-15.5) Hematocrit 33.5% (36.0-47.0) Mean Corpuscular Volume 94fL (79-100) Mean Corpuscular Hemoglobin 32pg (25-35) Mean Corpuscular Hemoglobin Concent 34g/dL (31-37) Red Cell Distribution Width 15.0% (11.5-14.5) Platelet Count 76x10^3/uL (140-400) Neutrophils (%) (Auto) 59% (31-73) Lymphocytes (%) (Auto) 18% (24-48) Monocytes (%) (Auto) 21% (0-9) Eosinophils (%) (Auto) 1% (0-3) Basophils (%) (Auto) 1% (0-3) Neutrophils # (Auto) 0.7x10^3uL (1.8-7.7) Lymphocytes # (Auto) 0.2x10^3/uL (1.0-4.8) Monocytes # (Auto) 0.2x10^3/uL (0.0-1.1) Eosinophils # (Auto) 0.0x10^3/uL (0.0-0.7) Basophils # (Auto) 0.0x10^3/uL (0.0-0.2) Segmented Neutrophils % 66% (35-66) Lymphocytes % 22% (24-48) Monocytes % 11% (0-10) Eosinophils % 1% (0-5) Platelet Estimate Adequate (ADEQUATE) Polychromasia Slight Tear Drop Cells Occ Ovalocytes Occ Crenated Cell Present Schistocytes Occ Sodium Level 137mmol/L (136-145) Potassium Level 3.7mmol/L (3.5-5.1) Chloride Level 101mmol/L (98-107) Carbon Dioxide Level 21mmol/L (21-32) Anion Gap 15 (6-14) Blood Urea Nitrogen 11mg/dL (7-20) Creatinine 1.2mg/dL (0.6-1.0) Estimated GFR (Cockcroft-Gault) 45.2 BUN/Creatinine Ratio 9 (6-20) Glucose Level 316mg/dL (70-99) Lactic Acid Level 3.5mmol/L (0.4-2.0) 2.2mmol/L (0.4-2.0) Calcium Level 9.7mg/dL (8.5-10.1) Total Bilirubin 0.5mg/dL (0.2-1.0) Aspartate Amino Transf (AST/SGOT) 98U/L (15-37) Alanine Aminotransferase (ALT/SGPT) 99U/L (14-59) Alkaline Phosphatase 100U/L (46-116) Troponin I Quantitative < 0.017ng/mL (0.000-0.055) ZY-Dlw-B-Type Natriuretic Peptide 83pg/mL (0-124) Total Protein 7.5g/dL (6.4-8.2) Albumin 3.2g/dL (3.4-5.0) Albumin/Globulin Ratio 0.7 (1.0-1.7) Influenza Type A Antigen Negative (NEGATIVE) Influenza Type B Antigen Positive (NEGATIVE) Urine Collection Type Unknown Urine Color Yellow Urine Clarity Clear Urine pH 6.0 Urine Specific [place] 1.020 Urine Protein 30mg/dL (NEG-TRACE) Urine Glucose (UA) >=1000mg/dL (NEG) Urine Ketones (Stick) Tracemg/dL (NEG) Urine Blood Moderate (NEG) Urine Nitrite Negative (NEG) Urine Bilirubin Negative (NEG) Urine Urobilinogen Dipstick 0.2mg/dL (0.2 mg/dL) Urine Leukocyte Esterase Negative (NEG) Urine RBC 1-2/HPF (0-2) Urine WBC 0/HPF (0-4) Urine Squamous Epithelial Cells Few/LPF Urine Bacteria 0/HPF (0-FEW) Test 05/20/16 20:51 05/21/16 04:00 05/21/16 08:09 05/21/16 11:18 Glucose (Fingerstick) 192mg/dL (70-99) 290mg/dL (70-99) 263mg/dL (70-99) White Blood Count 2.0x10^3/uL (4.0-11.0) Red Blood Count 3.08x10^6/uL (3.50-5.40) Hemoglobin 9.8g/dL (12.0-15.5) Hematocrit 28.5% (36.0-47.0) Mean Corpuscular Volume 93fL (79-100) Mean Corpuscular Hemoglobin 32pg (25-35) Mean Corpuscular Hemoglobin Concent 34g/dL (31-37) Red Cell Distribution Width 15.0% (11.5-14.5) Platelet Count 60x10^3/uL (140-400) Neutrophils (%) (Auto) 71% (31-73) Lymphocytes (%) (Auto) 14% (24-48) Monocytes (%) (Auto) 14% (0-9) Eosinophils (%) (Auto) 0% (0-3) Basophils (%) (Auto) 1% (0-3) Neutrophils # (Auto) 1.4x10^3uL (1.8-7.7) Lymphocytes # (Auto) 0.3x10^3/uL (1.0-4.8) Monocytes # (Auto) 0.3x10^3/uL (0.0-1.1) Eosinophils # (Auto) 0.0x10^3/uL (0.0-0.7) Basophils # (Auto) 0.0x10^3/uL (0.0-0.2) Sodium Level 140mmol/L (136-145) Potassium Level 3.2mmol/L (3.5-5.1) Chloride Level 105mmol/L (98-107) Carbon Dioxide Level 20mmol/L (21-32) Anion Gap 15 (6-14) Blood Urea Nitrogen 10mg/dL (7-20) Creatinine 1.2mg/dL (0.6-1.0) Estimated GFR (Cockcroft-Gault) 45.2 Glucose Level 221mg/dL (70-99) Calcium Level 8.5mg/dL (8.5-10.1) Test 05/21/16 16:02 05/21/16 20:47 05/22/16 04:40 05/22/16 07:41 Glucose (Fingerstick) 273mg/dL (70-99) 232mg/dL (70-99) 199mg/dL (70-99) White Blood Count 3.2x10^3/uL (4.0-11.0) Red Blood Count 3.12x10^6/uL (3.50-5.40) Hemoglobin 9.9g/dL (12.0-15.5) Hematocrit 29.1% (36.0-47.0) Mean Corpuscular Volume 93fL (79-100) Mean Corpuscular Hemoglobin 32pg (25-35) Mean Corpuscular Hemoglobin Concent 34g/dL (31-37) Red Cell Distribution Width 14.9% (11.5-14.5) Platelet Count 52x10^3/uL (140-400) Neutrophils (%) (Auto) 72% (31-73) Lymphocytes (%) (Auto) 14% (24-48) Monocytes (%) (Auto) 12% (0-9) Eosinophils (%) (Auto) 1% (0-3) Basophils (%) (Auto) 1% (0-3) Neutrophils # (Auto) 2.3x10^3uL (1.8-7.7) Lymphocytes # (Auto) 0.5x10^3/uL (1.0-4.8) Monocytes # (Auto) 0.4x10^3/uL (0.0-1.1) Eosinophils # (Auto) 0.0x10^3/uL (0.0-0.7) Basophils # (Auto) 0.0x10^3/uL (0.0-0.2) Sodium Level 145mmol/L (136-145) Potassium Level 3.2mmol/L (3.5-5.1) Chloride Level 111mmol/L (98-107) Carbon Dioxide Level 21mmol/L (21-32) Anion Gap 13 (6-14) Blood Urea Nitrogen 9mg/dL (7-20) Creatinine 1.1mg/dL (0.6-1.0) Estimated GFR (Cockcroft-Gault) 50.0 Glucose Level 193mg/dL (70-99) Calcium Level 8.5mg/dL (8.5-10.1) Laboratory Tests Test 05/21/16 16:02 05/21/16 20:47 05/22/16 04:40 05/22/16 07:41 Glucose (Fingerstick) 273mg/dL (70-99) 232mg/dL (70-99) 199mg/dL (70-99) White Blood Count 3.2x10^3/uL (4.0-11.0) Red Blood Count 3.12x10^6/uL (3.50-5.40) Hemoglobin 9.9g/dL (12.0-15.5) Hematocrit 29.1% (36.0-47.0) Mean Corpuscular Volume 93fL (79-100) Mean Corpuscular Hemoglobin 32pg (25-35) Mean Corpuscular Hemoglobin Concent 34g/dL (31-37) Red Cell Distribution Width 14.9% (11.5-14.5) Platelet Count 52x10^3/uL (140-400) Neutrophils (%) (Auto) 72% (31-73) Lymphocytes (%) (Auto) 14% (24-48) Monocytes (%) (Auto) 12% (0-9) Eosinophils (%) (Auto) 1% (0-3) Basophils (%) (Auto) 1% (0-3) Neutrophils # (Auto) 2.3x10^3uL (1.8-7.7) Lymphocytes # (Auto) 0.5x10^3/uL (1.0-4.8) Monocytes # (Auto) 0.4x10^3/uL (0.0-1.1) Eosinophils # (Auto) 0.0x10^3/uL (0.0-0.7) Basophils # (Auto) 0.0x10^3/uL (0.0-0.2) Sodium Level 145mmol/L (136-145) Potassium Level 3.2mmol/L (3.5-5.1) Chloride Level 111mmol/L (98-107) Carbon Dioxide Level 21mmol/L (21-32) Anion Gap 13 (6-14) Blood Urea Nitrogen 9mg/dL (7-20) Creatinine 1.1mg/dL (0.6-1.0) Estimated GFR (Cockcroft-Gault) 50.0 Glucose Level 193mg/dL (70-99) Calcium Level 8.5mg/dL (8.5-10.1) Microbiology 05/20/16 Blood Culture - Preliminary, Resulted NO GROWTH AFTER 1 DAY Medications Current Medications Sodium Chloride (Iv Sodium Chloride 0.9% 500ml Bag) 500 ml @ 500 mls/hr 1X ONCE IV Last administered on 05/20/16 16:27; Start 05/20/16 at 16:30; Stop at 17:29; Status DC Fentanyl Citrate (Fentanyl 2ml Vial) 25 mcg PRN Q15MIN PRN IV PAIN GREATER THAN 3/10 Last administered on 05/20/16 16:27; Start 05/20/16 at 16:15; Stop at 16:14; Status DC Acetaminophen 1000 mg 1,000 mg 1X ONCE PO Last administered on 05/20/16 16:26 ; Start 05/20/16 at 16:30; Stop 05/20/16 at 16:31; Status DC Sodium Chloride (Iv Sodium Chloride 0.9% 1000ml Bag) 1,000 ml @ 125 mls/hr 1X ONCE IV Last administered on 05/20/16 16:45; Start 05/20/16 at 16:45; Stop at 00:44; Status DC Oseltamivir Phosphate (Tamiflu) 75 mg BID PO Last administered on 05/21/16 09: 15; Start 05/20/16 at 17:00; Stop 05/21/16 at 16:44; Status DC Piperacillin Sod/ Tazobactam Sod 1 each 1 each PRN DAILY PRN MC SEE COMMENTS; Start 05/20/16 at 16:45; Stop 05/21/16 at 16:43; Status DC Piperacillin Sod/ Tazobactam Sod/ Sodium Chloride (Zosyn/Iv Sodium Chloride 0.9 % 100ml) 100 ml @ 200 mls/hr 1X ONCE IV Last administered on 05/20/16 17:01 ; Start 05/20/16 at 17:00; Stop 05/20/16 at 17:29; Status DC Vancomycin HCl 1 each 1 each PRN DAILY PRN MC SEE COMMENTS Last administered on 05/21/16 16:52; Start 05/20/16 at 17:00 Vancomycin HCl/ Sodium Chloride (Iv Sodium Chloride 0.9% 500ml Bag) 500 ml @ 250 mls/hr 1X ONCE IV Last administered on 05/20/16 17:43; Start 05/20/16 at 18:00; Stop 05/20/16 at 19:59; Status DC Ondansetron HCl 4 mg 4 mg PRN Q8HRS PRN IV NAUSEA/VOMITING; Start 05/20/16 at 17:00; Stop 05/21/16 at 16:59; Status DC Sodium Chloride (Iv Sodium Chloride 0.9% 1000ml Bag) 1,000 ml @ 125 mls/hr Q8H IV Last administered on 05/21/16 08:55; Start 05/20/16 at 16:55; Stop at 16:54; Status DC Acetaminophen (Tylenol) 650 mg PRN Q4HRS PRN PO FEVER; Start 05/20/16 at 17:00 ; Stop 05/21/16 at 16:59; Status DC Albuterol/ Ipratropium (Duoneb) 3 ml RTQID NEB Last administered on 05/21/16 15:28; Start 05/20/16 at 20:00; Stop 05/21/16 at 19:59; Status DC Insulin Aspart (Novolog) 0-5 UNITS TIDWMEALS SQ Last administered on 05/22/16 08:19; Start 05/21/16 at 08:00 Dextrose 12.5 gm 12.5 gm PRN Q15MIN PRN IV SEE COMMENTS; Start 05/20/16 at 17: 30 Piperacillin Sod/ Tazobactam Sod 4.5 gm/Sodium Chloride 100 ml @ 200 mls/hr Q6HRS IV Last administered on 05/22/16 05:58; Start 05/21/16 at 00:00 Vancomycin HCl/ Sodium Chloride (Iv Sodium Chloride 0.9% 250ml) 250 ml @ 167 mls/hr Q24H IV Last administered on 05/21/16 18:08; Start 05/21/16 at 18:00 Vancomycin HCl 1 each 1X ONCE MC ; Start 05/22/16 at 17:30; Stop 05/22/16 at 17 :31 Tbo-Filgrastim (Granix) 480 mcg QHS SQ Last administered on 05/21/16 21:20; Start 05/20/16 at 22:00; Stop 05/22/16 at 11:01; Status DC Potassium Chloride (Klor-Con) 40 meq 1X ONCE PO Last administered on 10:12; Start 05/21/16 at 09:45; Stop 05/21/16 at 09:47; Status DC Valacyclovir HCl (Valtrex) 500 mg BID PO Last administered on 05/22/16 09:15; Start 05/21/16 at 11:30 Oseltamivir Phosphate (Tamiflu) 30 mg BID PO Last administered on 05/22/16 09: 15; Start 05/21/16 at 21:00; Stop 05/25/16 at 09:01 Potassium Chloride (Klor-Con) 40 meq 1X ONCE PO Last administered on 3/19/ 17at 08:13; Start 05/22/16 at 08:00; Stop 05/22/16 at 08:01; Status DC Active Scripts Active Reported Aspirin 81 Mg Tab.chew 81 Mg PO DAILY Metformin Hcl 1,000 Mg Tablet 1 Tab PO BID Revlimid (Lenalidomide) 10 Mg Capsule 10 Mg PO DAILY Benicar (Olmesartan Medoxomil) 20 Mg Tablet 0.5 Tab PO DAILY Pravastatin Sodium 20 Mg Tablet 1 Tab PO DAILY Vitals/I & O Vital Sign - Last 24 Hours 05/21/16 05/21/16 05/21/16 05/21/16 15:00 15:28 19:00 19:40 Temp 99.0 98.1 99.0 98.1 Pulse 97 92 Resp 20 B/P 111/56 122/66 Pulse Ox 95 94 O2 Delivery Room Air Room Air Room Air Room Air 05/21/16 05/22/16 05/22/16 05/22/16 22:57 03:00 07:00 08:00 Temp 96.1 98.4 97.9 96.1 98.4 97.9 Pulse 86 86 91 Resp 14 B/P 127/70 123/72 117/62 Pulse Ox 95 98 97 O2 Delivery Room Air Room Air Room Air Room Air Intake and Output 05/21/16 05/21/16 05/22/16 15:00 23:00 07:00 Intake Total 700 ml 970 ml 100 ml Balance 700 ml 970 ml 100 ml ALLY NASSAR MD May 22, 2016 11:40
--- NOTE | 2016-05-22 12:00 | PDOC ---
Infectious Disease Note Subjective Subjective Comfortable Feels ready to go home + loose stools Appetite diminished Less cough No fever past 24 hours ROS ROS GEN: Denies chills, sweats HEENT: Denies sore throat CV: Denies chest pain RESP: Denies shortness of air GI: Denies n/v Vital Sign Vital Signs Vital Signs Date Time Temp Pulse Resp B/P Pulse Ox O2 Delivery O2 Flow Rate FiO2 05/22/16 08:00 Room Air 05/22/16 07:00 97.9 91 14 117/62 97 97.9 Physical Exam PHYSICAL EXAM GENERAL: Propped up in bed, relaxed appearance HEENT: Oral cavity pink. NECK: Supple, no adenopathy present. LUNGS: Clear to auscultation. HEART: Normal S1, S2. ABDOMEN: Not distended. Bowel sounds are present, soft, and nontender. EXTREMITIES: No gross edema or cyanosis. SKIN: Without rash. Warm to touch. NEUROLOGIC: Alert and oriented x 3. Moves all extremities. Labs Lab Laboratory Tests Test 05/21/16 16:02 05/21/16 20:47 05/22/16 04:40 05/22/16 07:41 Glucose (Fingerstick) 273mg/dL (70-99) 232mg/dL (70-99) 199mg/dL (70-99) White Blood Count 3.2x10^3/uL (4.0-11.0) Red Blood Count 3.12x10^6/uL (3.50-5.40) Hemoglobin 9.9g/dL (12.0-15.5) Hematocrit 29.1% (36.0-47.0) Mean Corpuscular Volume 93fL (79-100) Mean Corpuscular Hemoglobin 32pg (25-35) Mean Corpuscular Hemoglobin Concent 34g/dL (31-37) Red Cell Distribution Width 14.9% (11.5-14.5) Platelet Count 52x10^3/uL (140-400) Neutrophils (%) (Auto) 72% (31-73) Lymphocytes (%) (Auto) 14% (24-48) Monocytes (%) (Auto) 12% (0-9) Eosinophils (%) (Auto) 1% (0-3) Basophils (%) (Auto) 1% (0-3) Neutrophils # (Auto) 2.3x10^3uL (1.8-7.7) Lymphocytes # (Auto) 0.5x10^3/uL (1.0-4.8) Monocytes # (Auto) 0.4x10^3/uL (0.0-1.1) Eosinophils # (Auto) 0.0x10^3/uL (0.0-0.7) Basophils # (Auto) 0.0x10^3/uL (0.0-0.2) Sodium Level 145mmol/L (136-145) Potassium Level 3.2mmol/L (3.5-5.1) Chloride Level 111mmol/L (98-107) Carbon Dioxide Level 21mmol/L (21-32) Anion Gap 13 (6-14) Blood Urea Nitrogen 9mg/dL (7-20) Creatinine 1.1mg/dL (0.6-1.0) Estimated GFR (Cockcroft-Gault) 50.0 Glucose Level 193mg/dL (70-99) Calcium Level 8.5mg/dL (8.5-10.1) Test 05/22/16 11:23 Glucose (Fingerstick) 288mg/dL (70-99) Micro BLOOD CULTURE Preliminary NO GROWTH AFTER 1 DAY Objective Assessment Neutropenic fever. improved -Now off Granix Influenza B Lactic acidosis Multiple myeloma. -Velcade and Zometa. Last dose 05/16. -Revlimid daily Elevated liver enzymes Diabetes Plan Plan of Care Continue vanc and Zosyn for now, clinically improving Tamiflu for 5 days Valtrex prophylaxis NGTD Attending Co-Sign The patient was seen and interviewed as well as examined at the bedside. The chart was reviewed. The case was discussed. Agree with the plan of care. d/c KASSANDRA Adkins APRN May 22, 2016 12:00 RANDALL PEÑA MD May 22, 2016 12:20
== END 2016-05-22 15:41 | disposition home or self-care (01) | DRG 871 ==
LOC: ER 15:09 → ED HOLD 17:35 → 5 SOUTH 20:24
PROVIDERS: ADMIT Internal Medicine Hematology & Oncology; ATTEND Internal Medicine Hematology & Oncology
DX: A41.9 Sepsis, unspecified organism (principal); D61.810 Antineoplastic chemotherapy induced pancytopenia; E87.2 Acidosis; C90.00 Multiple myeloma not having achieved remission; J10.1 Influenza due to other identified influenza virus with other respiratory manifestations; D70.9 Neutropenia, unspecified; R50.81 Fever presenting with conditions classified elsewhere; D69.6 Thrombocytopenia, unspecified; E11.9 Type 2 diabetes mellitus without complications; E78.00 Pure hypercholesterolemia, unspecified; E78.5 Hyperlipidemia, unspecified; I10 Essential (primary) hypertension; J45.909 Unspecified asthma, uncomplicated; T45.1X5A Adverse effect of antineoplastic and immunosuppressive drugs, initial encounter; M19.90 Unspecified osteoarthritis, unspecified site; G25.79 Other drug induced movement disorders; Z80.0 Family history of malignant neoplasm of digestive organs; Z80.1 Family history of malignant neoplasm of trachea, bronchus and lung; Z80.3 Family history of malignant neoplasm of breast; Z82.3 Family history of stroke; Z83.3 Family history of diabetes mellitus; Z88.5 Allergy status to narcotic agent; Z88.8 Allergy status to other drugs, medicaments and biological substances; Z91.041 Radiographic dye allergy status
CPT/HCPCS: 36415; 71020; 80048; 80053; 81001; 82947; 83605; 83880; 84484; 85007; 85027; 87040; 87804; 93005; 94250; 94640; 96361; 96365; 96367; J1442; J1815; J2543; J3010; J3370; J7030; J7040; J7050; J7620; 99285-25

== ENCOUNTER 2016-09-08 08:20 | Outpatient (CLI) | payer BC ==
[2016-09-08] VITALS (9 sets, daily range): BP systolic 115–141; BP diastolic 49–76
[~2016-09-08 08:20] MED LIST changes: +ASPI-630 PO; -ASPI81TA2 PO; +METF-620 PO; -METF10002 PO; -OLME20TA PO; +OLME20TA19 PO
[2016-09-08 09:09] LABS: BASO % 2 % (0-3); EOS % 7 % (0-3); HEMATOCRIT 33.8 % (36.0-47.0); HEMOGLOBIN 11.4 g/dL (12.0-15.5); LYMPH # 0.4 x10^3/uL (1.0-4.8); LYMPH % 15 % (24-48); MEAN CORPUSCULAR HEMOGLOBIN 32 pg (25-35); MEAN CORPUSCULAR HGB CONC 34 g/dL (31-37); MEAN CORPUSCULAR VOLUME 94 fL (79-100); MONO % 18 % (0-9); NEUT % 58 % (31-73); PLATELET COUNT 93 x10^3/uL (140-400); RED BLOOD COUNT 3.58 x10^6/uL (3.50-5.40); RED CELL DISTRIBUTION WIDTH 14.6 % (11.5-14.5); WHITE BLOOD COUNT 2.4 x10^3/uL (4.0-11.0)
[2016-09-08] MEDS ORDERED: MIDAZOLAM HCL/PF 5 MG/5 ML VIAL. ONE (09:22)
[2016-09-08] MEDS ORDERED: LIDOCAINE 1% / SOD BICARB 8.4% 20 ML VIAL. IJ ONE ×2 (09:22→10:00)
[2016-09-08] MEDS ORDERED: fentaNYL PF VIAL 250 MCG/5 ML VIAL ONE (09:23)
[2016-09-08 09:59] LABS: INR 1.1 (0.8-1.1); PROTHROMBIN TIME PATIENT 13.2 SEC (11.7-14.0)
[2016-09-08] MEDS ORDERED: fentaNYL PF VIAL 250 MCG/5 ML VIAL IV ONE (10:00)
[2016-09-08] MEDS ORDERED: MIDAZOLAM HCL/PF 5 MG/5 ML VIAL. IV ONE (10:00)
[2016-09-08 10:42] LABS: % BASOS 1 % (0-3); % EOS 8 % (0-5)
[2016-09-08 10:43] LABS: ANISOCYTOSIS PRESENT; PLT ESTIMATE DECREASED (ADEQUATE)
--- NOTE | 2016-09-08 12:24 | RAD ---
Procedure: CT-guided bone marrow aspiration and biopsy 09/08/2016 Clinical Indication: Multiple myeloma Sedation: Conscious sedation was administered for 20 minutes. The patient was monitored by a qualified independent observer throughout the time of sedation. Please refer to the medical record for exact doses of medications utilized to achieve moderate sedation. Antibiotics: None Fluoro Time: Not applicable Contrast: Not applicable Sterility: The procedure was performed in its entirety using appropriate elements of sterile technique. Consent: The procedure was explained in its entirety to the patient or the patients designated printing sales representative by a member of the treatment team, including a discussion of the risks, benefits and commonly accepted alternatives to the procedure, as well as the expected consequences of no therapy whatsoever. Discussion of the risks included, but was not limited to, those that are most frequent and those that are rare but possibly severe or life-threatening, as well as the possibility of unforeseen complications. Technique and Findings: Following informed consent, the patient was prepped and draped in the usual sterile fashion. 1% Lidocaine was used to achieve local anesthesia over the posterior superior iliac spine on the left. A small dermatotomy was made. Under periodic CT surveillance, a needle was advanced through the cortex and 2 separate 2 mL marrow aspirates were obtained and prepared by the on-site medical technologist prn. A single core biopsy specimen was then obtained and preserved in formalin. The needle was then removed and hemostasis was achieved with manual compression. Complications: No immediate Impression: Successful CT-guided bone marrow aspiration and biopsy as described PQRS Compliance Statement: One or more of the following individualized dose reduction techniques were utilized for this examination: 1. Automated exposure control 2. Adjustment of the mA and/or kV according to patient size 3. Use of iterative reconstruction technique
== END 2016-09-08 11:00 | disposition home or self-care (01) ==
LOC: INTRAD 08:20
PROVIDERS: ATTEND Internal Medicine Hematology & Oncology
DX: C90.00 Multiple myeloma not having achieved remission (principal); E78.00 Pure hypercholesterolemia, unspecified; I10 Essential (primary) hypertension; J45.909 Unspecified asthma, uncomplicated; Z87.01 Personal history of pneumonia (recurrent); Z87.39 Personal history of other diseases of the musculoskeletal system and connective tissue; Z85.830 Personal history of malignant neoplasm of bone; Z86.39 Personal history of other endocrine, nutritional and metabolic disease; Z88.6 Allergy status to analgesic agent; Z91.041 Radiographic dye allergy status
CPT/HCPCS: 36415; 38221; 77012; 85007; 85027; 85610; 99152; G0364

== ENCOUNTER 2017-01-04 07:00 | Outpatient (CLI) | payer MEDICARE ==
[~2017-01-04] VITALS: Ht 162.6 cm; Wt 76.2 kg
[2017-01-04] VITALS (10 sets, daily range): BP systolic 104–120; BP diastolic 54–71
[2017-01-04] MEDS ORDERED: Bactrim DS PO (07:21)
[2017-01-04] MEDS ORDERED: LORA0.5T PO (07:21)
[2017-01-04] MEDS ORDERED: VALA500T PO (07:21)
[2017-01-04] MEDS ORDERED: CHOL500045 PO (07:21)
[2017-01-04 07:32] LABS: BASO % 1 % (0-3); EOS % 4 % (0-3); HEMATOCRIT 36.1 % (36.0-47.0); HEMOGLOBIN 12.4 g/dL (12.0-15.5); LYMPH # 0.4 x10^3/uL (1.0-4.8); LYMPH % 20 % (24-48); MEAN CORPUSCULAR HEMOGLOBIN 33 pg (25-35); MEAN CORPUSCULAR HGB CONC 34 g/dL (31-37); MEAN CORPUSCULAR VOLUME 96 fL (79-100); MONO % 17 % (0-9); NEUT % 58 % (31-73); PLATELET COUNT 130 x10^3/uL (140-400); RED BLOOD COUNT 3.77 x10^6/uL (3.50-5.40); WHITE BLOOD COUNT 2.1 x10^3/uL (4.0-11.0)
[2017-01-04] MEDS ORDERED: INSU100I17 SQ (07:37)
[2017-01-04] MEDS ORDERED: INSU100I30 SQ (07:38)
[2017-01-04 07:51] LABS: INR 0.9 (0.8-1.1); PROTHROMBIN TIME PATIENT 11.4 SEC (11.7-14.0)
[2017-01-04] MEDS ORDERED: MIDAZOLAM HCL/PF 5 MG/5 ML VIAL. ONE (08:12)
[2017-01-04] MEDS ORDERED: LIDOCAINE 1% / SOD BICARB 8.4% 20 ML VIAL. IJ ONE ×2 (08:12→08:30)
[2017-01-04] MEDS ORDERED: fentaNYL PF VIAL 100 MCG/2 ML VIAL ONE (08:12)
[2017-01-04] MEDS ORDERED: fentaNYL PF VIAL 100 MCG/2 ML VIAL IV ONE (08:30)
[2017-01-04] MEDS ORDERED: MIDAZOLAM HCL/PF 5 MG/5 ML VIAL. IV ONE (08:30)
--- NOTE | 2017-01-04 11:27 | RAD ---
CT-guided bone marrow biopsy. 01/04/2017 11:22 AM Indication: MYELOMA Discussion: The risks and benefits of the procedure, including but not limited to, bleeding and infection were discussed patient. Informed consent was obtained. The patient was brought to the CT scanner and placed in the prone position. A timeout procedure was performed. Adhesive Sprayer CT imaging of the pelvis demonstrated left ilium amenable to bone marrow biopsy. The overlying soft tissues were prepped and draped using maximum sterile barrier technique. 1% lidocaine without epinephrine was administered for local anesthesia. Under intermittent CT guidance, an OncControl needle was advanced into the bone marrow of the left iliac crest. 2 Aspirates and 1 core biopsy samples were obtained. Samples were delivered to pathology was present at the time of procedure. The needle was removed and manual pressure held to achieve hemostasis. No immediate complications were identified. The procedure was performed under conscious sedation including continuous cardiopulmonary monitoring via dedicated sedation nurse. Sedation time: 20 minutes Impression: Successful CT-guided bone marrow biopsy of the left iliac crest . PQRS Compliance Statement: One or more of the following individualized dose reduction techniques were utilized for this examination: 1. Automated exposure control 2. Adjustment of the mA and/or kV according to patient size 3. Use of iterative reconstruction technique
== END 2017-01-04 10:20 | disposition home or self-care (01) ==
LOC: INTRAD 07:00
PROVIDERS: ATTEND Internal Medicine Hematology & Oncology
DX: C90.00 Multiple myeloma not having achieved remission (principal); E83.52 Hypercalcemia; I50.9 Heart failure, unspecified; Z88.6 Allergy status to analgesic agent; I10 Essential (primary) hypertension; Z85.830 Personal history of malignant neoplasm of bone; Z87.01 Personal history of pneumonia (recurrent); J45.909 Unspecified asthma, uncomplicated; E78.00 Pure hypercholesterolemia, unspecified; Z91.041 Radiographic dye allergy status; Z86.39 Personal history of other endocrine, nutritional and metabolic disease; Z87.39 Personal history of other diseases of the musculoskeletal system and connective tissue
CPT/HCPCS: 36415; 38221; 77012; 85025; 85610; 88184; 88185; 88237; G0364; J2250; J3010; 99152

== ENCOUNTER 2017-05-11 06:53 | Outpatient (CLI) | payer MEDICARE ==
[2017-05-11 07:14] LABS: ADD MAN DIFF? NO
[2017-05-11 07:35] LABS: BASO # 0.1 x10^3/uL (0.0-0.2); BASO % 1 % (0-3); EOS # 0.1 x10^3/uL (0.0-0.7); EOS % 2 % (0-3); HEMATOCRIT 40.5 % (36.0-47.0); HEMOGLOBIN 13.5 g/dL (12.0-15.5); LYMPH # 1.3 x10^3/uL (1.0-4.8); LYMPH % 23 % (24-48); MEAN CORPUSCULAR HEMOGLOBIN 30 pg (25-35); MEAN CORPUSCULAR HGB CONC 33 g/dL (31-37); MEAN CORPUSCULAR VOLUME 90 fL (79-100); MONO # 0.6 x10^3/uL (0.0-1.1); MONO % 11 % (0-9); NEUT # 3.6 x10^3uL (1.8-7.7); NEUT % 63 % (31-73); PLATELET COUNT 253 x10^3/uL (140-400); RED BLOOD COUNT 4.52 x10^6/uL (3.50-5.40); RED CELL DISTRIBUTION WIDTH 14.4 % (11.5-14.5); WHITE BLOOD COUNT 5.8 x10^3/uL (4.0-11.0)
[2017-05-11 07:50] LABS: PROTHROMBIN TIME PATIENT 12.1 SEC (11.7-14.0)
[2017-05-11] MEDS ORDERED: LIDOCAINE WITH 8.4% SOD BICARB 3 ML DISP.SYRIN. (08:24)
[2017-05-11] MEDS: ONDANSETRON PF 4 MG/2 ML VIAL. IV (08:43)
[2017-05-11] MEDS ORDERED: MIDAZOLAM HCL/PF 5 MG/5 ML VIAL. (08:54)
[2017-05-11] MEDS ORDERED: fentaNYL PF VIAL 250 MCG/5 ML VIAL (08:54)
[2017-05-11] MEDS: LIDOCAINE WITH 8.4% SOD BICARB 3 ML DISP.SYRIN. IJ (09:16)
[2017-05-11] MEDS: MIDAZOLAM HCL/PF 5 MG/5 ML VIAL. IV (09:16)
[2017-05-11] MEDS: fentaNYL PF VIAL 250 MCG/5 ML VIAL IV (09:17)
== END 2017-05-11 11:45 | disposition home or self-care (01) ==
LOC: INTRAD 06:53
DX: C90.00 Multiple myeloma not having achieved remission (principal); Z88.8 Allergy status to other drugs, medicaments and biological substances; Z79.899 Other long term (current) drug therapy; Z98.890 Other specified postprocedural states
CPT/HCPCS: 36415; 38222; 77012; 85025; 85610; 88184; 88185; 88237; 99152; J2250; J2405; J3010

== ENCOUNTER 2017-08-22 20:18 | Emergency (ER) | payer MEDICARE ==
[2017-08-22 21:42] LABS: BASO % 0 % (0-3); EOS # 0.2 x10^3/uL (0.0-0.7); EOS % 1 % (0-3); HEMATOCRIT 36.1 % (36.0-47.0); HEMOGLOBIN 12.1 g/dL (12.0-15.5); LYMPH # 0.8 x10^3/uL (1.0-4.8); LYMPH % 5 % (24-48); MEAN CORPUSCULAR HEMOGLOBIN 29 pg (25-35); MEAN CORPUSCULAR HGB CONC 34 g/dL (31-37); MEAN CORPUSCULAR VOLUME 85 fL (79-100); MONO # 1.2 x10^3/uL (0.0-1.1); MONO % 8 % (0-9); NEUT # 13.3 x10^3uL (1.8-7.7); NEUT % 86 % (31-73); PLATELET COUNT 302 x10^3/uL (140-400); RED BLOOD COUNT 4.23 x10^6/uL (3.50-5.40); RED CELL DISTRIBUTION WIDTH 15.4 % (11.5-14.5); WHITE BLOOD COUNT 15.5 x10^3/uL (4.0-11.0)
[2017-08-22 21:47] LABS: ADD MAN DIFF? YES
[2017-08-22 22:17] LABS: % BANDS 3 % (0-9); % EOS 1 % (0-5); % LYMPHS 5 % (24-48); % MONOS 5 % (0-10); % SEGS 86 % (35-66)
[2017-08-22 22:18] LABS: PLT ESTIMATE ADEQUATE (ADEQUATE)
[2017-08-22] MEDS: IV NORMAL SALINE 500ML BAG 500 ML IV (22:36)
[2017-08-22] MEDS: fentaNYL PF VIAL 100 MCG/2 ML VIAL IV (22:36)
[2017-08-22 22:39] LABS: ANION GAP 14 (6-14); BLOOD UREA NITROGEN 6 mg/dL (7-20); CALCIUM 8.6 mg/dL (8.5-10.1); CARBON DIOXIDE 22 mmol/L (21-32); CHLORIDE 101 mmol/L (98-107); CREATININE 0.9 mg/dL (0.6-1.0); GFR 62.8; GLUCOSE 179 mg/dL (70-99); POTASSIUM 3.3 mmol/L (3.5-5.1); SODIUM 137 mmol/L (136-145)
[2017-08-22 22:45] LABS: ALBUMIN 2.4 g/dL (3.4-5.0); ALK PHOS 116 U/L (46-116); ALT (SGPT) 26 U/L (14-59); AST (SGOT) 20 U/L (15-37); DIRECT BILIRUBIN 0.2 mg/dL (0.0-0.2); LIPASE 85 U/L (73-393); TOTAL BILIRUBIN 0.6 mg/dL (0.2-1.0); TOTAL PROTEIN 5.1 g/dL (6.4-8.2)
[2017-08-22 22:47] LABS: LACTIC ACID 0.9 mmol/L (0.4-2.0)
[2017-08-22 23:40] LABS: BILIRUBIN,URINE NEGATIVE (NEG); CLARITY,URINE CLEAR; COLOR,URINE YELLOW; GLUCOSE,URINE NEGATIVE (NEG); NITRITE,URINE NEGATIVE (NEG); PH,URINE 6.5; PROTEIN,URINE NEGATIVE (NEG-TRACE); UROBILINOGEN,URINE 0.2 mg/dL (0.2 mg/dL)
[2017-08-22 23:45] LABS: BACTERIA,URINE FEW /HPF (0-FEW); RBC,URINE RARE /HPF (0-2); SQUAMOUS EPITHELIAL CELL,UR MOD /LPF
[2017-08-22 23:46] LABS: HYALINE CASTS, URINE MODERATE /HPF
[2017-08-22] MEDS: metroNIDAZOLE 500 MG TABLET PO (23:50)
[2017-08-22] MEDS: CIPROFLOXACIN HCL 250 MG TABLET. PO (23:51)
== END 2017-08-22 23:55 | disposition home or self-care (01) ==
LOC: ER 20:18
DX: K52.9 Noninfective gastroenteritis and colitis, unspecified (principal); J45.909 Unspecified asthma, uncomplicated; E78.00 Pure hypercholesterolemia, unspecified; I10 Essential (primary) hypertension; E11.9 Type 2 diabetes mellitus without complications; Z98.890 Other specified postprocedural states; Z88.5 Allergy status to narcotic agent; Z91.041 Radiographic dye allergy status; Z88.8 Allergy status to other drugs, medicaments and biological substances
CPT/HCPCS: 36415; 71045; 74176; 80048; 80076; 81001; 83605; 83690; 85007; 85025; 87040; 87086; 96361; 96374; 99285-25; J3010; J7040

== ENCOUNTER 2018-01-01 09:46 | Inpatient (IN) | payer MEDICARE ==
[~2018-01-01] VITALS: Ht 162.6 cm; Wt 75.4 kg
[~2018-01-01 09:46] MED LIST changes: +Bactrim DS PO; +CHOL500045 PO; +CIPR500T PO; +INSU100I17 SQ; +INSU100I30 SQ; +LORA0.5T PO; -METF-620 PO; +METF10007 PO; +METR500T PO; +OLME20TA17 PO; -OLME20TA19 PO; +POTA10TA12 PO; +VALA500T PO
[2018-01-01] MEDS ORDERED: ADENOSINE 6 MG/2 ML VIAL. IV ONE (09:53)
[2018-01-01 10:19] LABS: BASO # 0.1 x10^3/uL (0.0-0.2); BASO % 1 % (0-3); EOS # 0.2 x10^3/uL (0.0-0.7); EOS % 4 % (0-3); HEMATOCRIT 43.4 % (36.0-47.0); HEMOGLOBIN 14.8 g/dL (12.0-15.5); LYMPH # 1.4 x10^3/uL (1.0-4.8); LYMPH % 28 % (24-48); MEAN CORPUSCULAR HEMOGLOBIN 30 pg (25-35); MEAN CORPUSCULAR HGB CONC 34 g/dL (31-37); MEAN CORPUSCULAR VOLUME 88 fL (79-100); MONO # 0.5 x10^3/uL (0.0-1.1); MONO % 10 % (0-9); NEUT # 2.8 x10^3uL (1.8-7.7); NEUT % 57 % (31-73); PLATELET COUNT 223 x10^3/uL (140-400); RED BLOOD COUNT 4.96 x10^6/uL (3.50-5.40); RED CELL DISTRIBUTION WIDTH 14.7 % (11.5-14.5); WHITE BLOOD COUNT 4.9 x10^3/uL (4.0-11.0)
[2018-01-01 10:26] LABS: CALCIUM 9.6 mg/dL (8.5-10.1); CREATININE 1.1 mg/dL (0.6-1.0); GFR 49.8; POTASSIUM 3.6 mmol/L (3.5-5.1)
[2018-01-01 10:32] LABS: ALBUMIN 3.6 g/dL (3.4-5.0); ALBUMIN/GLOBULIN RATIO 1.2 (1.0-1.7); MAGNESIUM 1.7 mg/dL (1.8-2.4); TOTAL BILIRUBIN 0.7 mg/dL (0.2-1.0); TOTAL PROTEIN 6.7 g/dL (6.4-8.2)
--- NOTE | 2018-01-01 10:42 | EKG ---
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
--- NOTE | 2018-01-01 10:43 | EKG ---
[facility] [address] [place] [address] Test Date: 2018-01-01 Test Time: 09:55:27 Pat Name: CARMINA BUSTOS Department: Room: Gender: F Smash Piecer: [id number] : 1950 Requested By: LUISITO RAMÍREZ Order Number: [id number] Reading MD: Sal Riggs MD Measurements Intervals [place] Rate: 161 P: [place]: QRS: -28 QRSD: 86 T: 51 QT: 312 QTc: 511 Interpretive Statements SVT TO SINUS RHYTHM CONVERSION - PROBABLE ADENOSINE ADMINISTRATION Electronically Signed On 01-01-2018 12:01:54 CDT by Sal Riggs MD
--- NOTE | 2018-01-01 10:43 | EKG ---
[facility] [address] [place] [address] Test Date: 2018-01-01 Test Time: 09:56:45 Pat Name: CARMINA BUSTOS Department: Room: Gender: F Cancer Researcher: [id number] : 1950 Requested By: LUISITO RAMÍREZ Order Number: [id number] Reading MD: Sal Riggs MD Measurements Intervals [place] Rate: 120 P: 38 VT: 158 QRS: -29 QRSD: 84 T: 73 QT: 298 QTc: 426 Interpretive Statements SINUS TACHYCARDIA LVH NON-SPECIFIC ST/T CHANGES Electronically Signed On 01-01-2018 12:02:02 CDT by Sal Riggs MD
--- NOTE | 2018-01-01 10:46 | RAD ---
PORTABLE CHEST 1V History: PALPITATIONS X TODAY. Comparison: August 22, 2017 Heart size: Within normal limits. Shraddha/mediastinum: Within normal limits Lungs: No focal airspace consolidation. Pleura: No evidence of pleural effusion. Pneumothorax: None visualized Bones: Regional skeleton appears grossly intact. Miscellaneous: None Impression: No consolidating infiltrate. Electronically signed by: Jonatan Alves MD (01/01/2018 10:43 AM) [id number]
[2018-01-01] MEDS ORDERED: MAGNESIUM SULFATE 1GM 100 ML IV ONE (11:15)
--- NOTE | 2018-01-01 15:12 | PHYS DOC ---
Past Medical History Past Medical History: Asthma, Cancer, Diabetes-Type II, High Cholesterol, Hypertension Additional Past Medical Histor: multiple myeloma Past Surgical History: Tonsillectomy, Other Additional Past Surgical Histo: hernia repair x3, right ankle fracture repair, dilation and curretage Alcohol Use: None Drug Use: None Adult General Chief Complaint Chief Complaint: RAPID HEART RATE HPI HPI Patient is a 67 year old is referred for tachycardia. Apparently the patient was here for routine visit myeloma and she said that one hour prior to onset of the visit she developed palpitations she felt chest heaviness that she described really is more like indigestion really mild shortness of breath which she has on a fairly chronic basis she says she has asthma she feels pretty similar to normal. She has had these palpitations in the past but they've gone away on their own. Patient denies any recent fever currently her symptoms are moderate to severe. Review of Systems Review of Systems Constitutional: Denies fever or chills [] Eyes: Denies change in visual acuity, redness, or eye pain [] HENT: Denies nasal congestion or sore throat [] Respiratory: Denies cough Cardiovascular: No additional information not addressed in HPI [] Neurologic: Denies headache, focal weakness or sensory changes [] All other systems were reviewed and found to be within normal limits, except as documented in this note. Current Medications Current Medications Current Medications Medications (Trade) Dose Ordered Sig/Wes Start Time Stop Time Status Last Admin Dose Admin Adenosine (Adenocard) 6 mg STK-MED ONCE 01/01/18 09:53 01/01/18 09:54 DC Magnesium Sulfate/ Dextrose 100 ml @ 100 mls/hr 1X ONCE 01/01/18 11:15 01/01/18 12:14 DC 01/01/18 11:09 100 MLS/HR Allergies Allergies Allergies Coded Allergies Type Severity Reaction Last Updated Verified Beta-Blockers (Beta-Adrenergic Bloc Allergy Intermediate Itching and anxiety Yes Iodinated Contrast- Oral and IV Dye Allergy Intermediate 05/08/14 Yes hydrocodone Allergy Intermediate 05/08/14 Yes iodine Allergy Unknown Rash 05/11/17 Yes pioglitazone Adverse Reaction Intermediate anxiety 05/08/14 Yes Physical Exam Physical Exam Constitutional: Well developed, well nourished, no acute distress, non-toxic appearance. [] HENT: Normocephalic, atraumatic, bilateral external ears normal, oropharynx moist, no oral exudates, nose normal. [] Eyes: PERRLA, EOMI, conjunctiva normal, no discharge. [] Neck: Normal range of motion, no tenderness, supple, no stridor. [] Cardiovascular: Extremely tachycardic limits the exam Lungs & Thorax: Bilateral breath sounds clear to auscultation [] Abdomen: Bowel sounds normal, soft, no tenderness, no masses, no pulsatile masses. [] Skin: Warm, dry, no erythema, no rash. [] Back: No tenderness, no CVA tenderness. [] Extremities: No tenderness, no cyanosis, no clubbing, ROM intact, no edema. [] Neurologic: Alert and oriented X 3, normal motor function, normal sensory function, no focal deficits noted. [] Psychologic: Affect normal, judgement normal, mood normal. [] Current Patient Data Vital Signs Vital Signs Date Time Temp Pulse Resp B/P (MAP) Pulse Ox O2 Delivery O2 Flow Rate FiO2 01/01/18 12:30 106 18 128/73 (91) 94 Room Air 01/01/18 09:59 98.5 98.5 Lab Values Laboratory Tests Test 01/01/18 10:06 01/01/18 11:50 White Blood Count 4.9 x10^3/uL (4.0-11.0) Red Blood Count 4.96 x10^6/uL (3.50-5.40) Hemoglobin 14.8 g/dL (12.0-15.5) Hematocrit 43.4 % (36.0-47.0) Mean Corpuscular Volume 88 fL (79-100) Mean Corpuscular Hemoglobin 30 pg (25-35) Mean Corpuscular Hemoglobin Concent 34 g/dL (31-37) Red Cell Distribution Width 14.7 % (11.5-14.5) H Platelet Count 223 x10^3/uL (140-400) Neutrophils (%) (Auto) 57 % (31-73) Lymphocytes (%) (Auto) 28 % (24-48) Monocytes (%) (Auto) 10 % (0-9) H Eosinophils (%) (Auto) 4 % (0-3) H Basophils (%) (Auto) 1 % (0-3) Neutrophils # (Auto) 2.8 x10^3uL (1.8-7.7) Lymphocytes # (Auto) 1.4 x10^3/uL (1.0-4.8) Monocytes # (Auto) 0.5 x10^3/uL (0.0-1.1) Eosinophils # (Auto) 0.2 x10^3/uL (0.0-0.7) Basophils # (Auto) 0.1 x10^3/uL (0.0-0.2) Sodium Level 138 mmol/L (136-145) Potassium Level 3.6 mmol/L (3.5-5.1) Chloride Level 102 mmol/L (98-107) Carbon Dioxide Level 20 mmol/L (21-32) L Anion Gap 16 (6-14) H Blood Urea Nitrogen 14 mg/dL (7-20) Creatinine 1.1 mg/dL (0.6-1.0) H Estimated GFR (Cockcroft-Gault) 49.8 BUN/Creatinine Ratio 13 (6-20) Glucose Level 317 mg/dL (70-99) H Calcium Level 9.6 mg/dL (8.5-10.1) Magnesium Level 1.7 mg/dL (1.8-2.4) L Total Bilirubin 0.7 mg/dL (0.2-1.0) Aspartate Amino Transferase (AST) 38 U/L (15-37) H Alanine Aminotransferase (ALT) 87 U/L (14-59) H Alkaline Phosphatase 83 U/L (46-116) Troponin I Quantitative < 0.017 ng/mL (0.000-0.055) 0.057 ng/mL (0.000-0.055) Total Protein 6.7 g/dL (6.4-8.2) Albumin 3.6 g/dL (3.4-5.0) Albumin/Globulin Ratio 1.2 (1.0-1.7) Laboratory Tests 01/01/18 10:06 Laboratory Tests 01/01/18 10:06 EKG EKG []EKG #1 did show a SVT rate of [address] changes EKG #2 digit show a break in the rhythm after given adenosine EKG #3 did show sinus tachycardia at a rate of 120 clear P waves are seen the SVT is no longer present no STEMI is identified on the third EKG these were all interpreted by me the time of encounter while I was at the bedside. Radiology/Procedures Radiology/Procedures [] Impressions: Comparison: August 22, 2017 Heart size: Within normal limits. Shraddha/mediastinum: Within normal limits Lungs: No focal airspace consolidation. Pleura: No evidence of pleural effusion. Pneumothorax: None visualized Bones: Regional skeleton appears grossly intact. Miscellaneous: None Impression: No consolidating infiltrate. Electronically signed by: Jonatan Alves MD (01/01/2018 10:43 AM) [facility] Course & Med Decision Making Course & Med Decision Making Pertinent Labs and Imaging studies reviewed. (See chart for details) []67 YO F P/W SVT. INIITAL HR 200. Patient was placed on equipment monitor phototypesetting a evaluated her immediately upon arrival to the emergency room. Heart rate was 200 blood pressure was in the 130s she appeared in mild distress we gave 6 mg of adenosine and this appeared to break her rhythm. She remained after that in mild sinus tachycardia with rates around 120. Patient had improvement in her symptoms she said she felt much better she really was wanted to go home. I did want cycle troponins to rule out acute coronary syndrome which would be very unlikely but unfortunate her troponin did bump this is likely rate related. I did speak with Madeline from cardiology who recommended admission overnight so we can monitor her and probably get Ino RATE control medications. At this point time as of this dictation I did speak with the ICU nurse and I ordered an aspirin which she will get. Spoke with Dr. GODOY ADMIT FOR SVT WITH CONSULT TO ARDIOLOGY. Patient's symptoms went away after the SVT resolved so I don't think there is a PE Dragon Disclaimer Dragon Disclaimer This electronic medical record was generated, in whole or in part, using a voice recognition dictation system. Departure Departure Impression: Primary Impression: SVT (supraventricular tachycardia) Disposition: ADMITTED INPATIENT Admitting Physician: Patricio Godoy Condition: STABLE Referrals: SMILEY GUZMAN DO (PCP) LUISITO RAMÍREZ MD Jan 01, 2018 15:11
[2018-01-01] MEDS ORDERED: INSU100C4 SQ (15:24)
[2018-01-01] MEDS ORDERED: INSU100I30 SQ (15:24)
[2018-01-01 15:29] VITALS: BP 158/84
[2018-01-01] MEDS ORDERED: ASPIRIN CHEWABLE 81 MG TABLET. PO ONE (15:30)
--- NOTE | 2018-01-01 15:34 | PDOC2 ---
CARDIAC CONSULT DATE OF CONSULT Date of Consult DATE: 01/01/18 TIME: 15:17 REASON FOR CONSULT Reason for Consult: SVT REFERRING PHYSICIAN Referring Physician: Dr. Lennon SOURCE Source: Chart review, Patient HISTORY OF PRESENT ILLNESS HISTORY OF PRESENT ILLNESS This is a 67 yo female who presented secondary to elevated HR. Patient reports she was standing at the vanity this morning and began feeling dizzy; didn't feel well. Had pain in her epigastric region. Describes as a stabbing/burning sensation. No associated diaphoresis, palpitations, SOA, or nausea/vomiting. Took Rolaids, which improved pain. [place] better and went to scheduled appoint with Dr. Cabrera. Routine vitals noted HR in the 220's. Patient transferred to the ED for further evaluation and treatment. Noted to be in SVT upon arrival. Converted to SR/ST with adenosine 6mg IV x1. No recent STEWART, orthopnea, or PND. PAST MEDICAL HISTORY Cardiovascular: CHF, HTN, Hyperlipidemia Pulmonary: No pertinent hx CENTRAL NERVOUS SYSTEM: Other (no pertinent hx) GI: GERD Heme/Onc: Other (multiple myeloma) Hepatobiliary: No pertinent hx Psych: No pertinent hx Musculoskeletal: Osteoarthritis Infectious disease: No pertinent hx ENT: No pertinent hx Renal/: Acute renal failure Endocrine: Diabetes PAST SURGICAL HISTORY Past Surgical History: Hernia Repair, Tonsillectomy, Other (bone marrow transplant x2) FAMILY HISTORY Family History: Cancer, Diabetes SOCIAL HISTORY Smoke: No ALCOHOL: none Drugs: None Lives: with Family CURRENT MEDICATIONS CURRENT MEDICATIONS Current Medications Medications (Trade) Dose Ordered Sig/Wes Route PRN Reason Start Time Stop Time Status Last Admin Dose Admin Magnesium Sulfate/ Dextrose 100 ml @ 100 mls/hr 1X ONCE IV 01/01/18 11:15 01/01/18 12:14 DC 01/01/18 11:09 ALLERGIES ALLERGIES: Coded Allergies: Beta-Blockers (Beta-Adrenergic Bloc (Verified Allergy, Intermediate, Itching and anxiety, 05/11/14) Iodinated Contrast- Oral and IV Dye (Verified Allergy, Intermediate, ) hydrocodone (Verified Allergy, Intermediate, 05/08/14) iodine (Verified Allergy, Unknown, Rash, 05/11/17) pioglitazone (Verified Adverse Reaction, Intermediate, anxiety, 05/08/14) PHYSICAL EXAM General: Alert, Oriented X3, Cooperative, No acute distress HEENT: Atraumatic, Mucous membr. moist/pink Lungs: Clear to auscultation, Normal air movement Heart: Regular rate (rate near 100), Normal S1, Normal S2 Abdomen: Soft, No tenderness Extremities: No edema, Normal pulses Skin: No breakdown, No significant lesion Neuro: Normal speech, Sensation intact Psych/Mental Status: Mental status NL, Mood NL VITALS VITALS Vital Signs Date Time Temp Pulse Resp B/P (MAP) Pulse Ox O2 Delivery O2 Flow Rate FiO2 01/01/18 12:30 106 18 128/73 (91) 94 Room Air 01/01/18 09:59 98.5 98.5 LABS Lab: Laboratory Tests Test 01/01/18 10:06 01/01/18 11:50 White Blood Count 4.9 x10^3/uL (4.0-11.0) Red Blood Count 4.96 x10^6/uL (3.50-5.40) Hemoglobin 14.8 g/dL (12.0-15.5) Hematocrit 43.4 % (36.0-47.0) Mean Corpuscular Volume 88 fL (79-100) Mean Corpuscular Hemoglobin 30 pg (25-35) Mean Corpuscular Hemoglobin Concent 34 g/dL (31-37) Red Cell Distribution Width 14.7 % (11.5-14.5) Platelet Count 223 x10^3/uL (140-400) Neutrophils (%) (Auto) 57 % (31-73) Lymphocytes (%) (Auto) 28 % (24-48) Monocytes (%) (Auto) 10 % (0-9) Eosinophils (%) (Auto) 4 % (0-3) Basophils (%) (Auto) 1 % (0-3) Neutrophils # (Auto) 2.8 x10^3uL (1.8-7.7) Lymphocytes # (Auto) 1.4 x10^3/uL (1.0-4.8) Monocytes # (Auto) 0.5 x10^3/uL (0.0-1.1) Eosinophils # (Auto) 0.2 x10^3/uL (0.0-0.7) Basophils # (Auto) 0.1 x10^3/uL (0.0-0.2) Sodium Level 138 mmol/L (136-145) Potassium Level 3.6 mmol/L (3.5-5.1) Chloride Level 102 mmol/L (98-107) Carbon Dioxide Level 20 mmol/L (21-32) Anion Gap 16 (6-14) Blood Urea Nitrogen 14 mg/dL (7-20) Creatinine 1.1 mg/dL (0.6-1.0) Estimated GFR (Cockcroft-Gault) 49.8 BUN/Creatinine Ratio 13 (6-20) Glucose Level 317 mg/dL (70-99) Calcium Level 9.6 mg/dL (8.5-10.1) Magnesium Level 1.7 mg/dL (1.8-2.4) Total Bilirubin 0.7 mg/dL (0.2-1.0) Aspartate Amino Transf (AST/SGOT) 38 U/L (15-37) Alanine Aminotransferase (ALT/SGPT) 87 U/L (14-59) Alkaline Phosphatase 83 U/L (46-116) Troponin I Quantitative < 0.017 ng/mL (0.000-0.055) 0.057 ng/mL (0.000-0.055) Total Protein 6.7 g/dL (6.4-8.2) Albumin 3.6 g/dL (3.4-5.0) Albumin/Globulin Ratio 1.2 (1.0-1.7) ECHOCARDIOGRAM ECHOCARDIOGRAM <Conclusion> Mild global left ventricle systolic dysfunction with ejection fraction estimated at 45%. The left atrium is borderline dilated. Doppler and Color Flow revealed trace aortic insufficiency. Doppler and Color Flow revealed moderate mitral regurgitation. Doppler and Color Flow revealed mild tricuspid regurgitation. The PA pressure was estimated at 41 mmHg. Trace pericardial effusion. DATE: 05/09/141628 ASSESSMENT/PLAN ASSESSMENT/PLAN 1. SVT; converted to SR with adenosine 6mg x1. 2. Mild troponin elevation; type II, demand ischemia secondary to SVT. 3. Chest/epigastric pain; most probably GI in nature; improved with antacids. EKG with non-specific ST/T changes. 4. Hypertension; controlled 5. Multiple myeloma; on chronic immunosuppression therapy. Follows with Dr. Cabrera 6. Chronic combined systolic and diastolic CHF; LVEF 45%; clinically compensated 7. Diabetes,II; as per PCP 8. Hypomagnesemia; replaced in ED Recommendations ASA Check lipids, TSH. Trend troponin Will add CCB for rate control. Previously on BB; listed as allergy as she felt exhausted with initiation of both Coreg and metoprolol Obtain echo to asses LV function Consider ischemic evaluation JAMAAL CALDWELL APRN Jan 01, 2018 15:34
[2018-01-01] MEDS ORDERED: DEXTROSE 50% 25 GM / 50ML DISP.SYRIN. IV PRN (16:15)
[2018-01-01] MEDS: INSULIN LISPRO 300 UNITS/3 ML INSULN.PEN. SQ SCH (17:00)
[2018-01-01 19:30] VITALS: BP 135/77
[2018-01-01 22:45] VITALS: BP 126/61
--- NOTE | 2018-01-01 22:49 | HP ---
ADMIT DATE: 01/01/2018 CHIEF COMPLAINT: Palpitations. HISTORY OF PRESENT ILLNESS: The patient is a pleasant 67-year-old female who presented with palpitations and tachycardia. She rates it as a 7/10. She has associated chest pains, been occurring for an hour or so. She has a history of multiple myeloma and has been receiving some special monoclonal antibodies for that. She thought maybe that might be playing a role. While in the ER, she was noted to be in SVT. She also has a slight bump in her troponin to 0.07, now it is up to 0.4. I have discussed the case with ER physician and the ICU nurse. We are going to admit the patient. We are going to give her beta blockade and consult Cardiology and her oncologist, Dr. Cabrera. She did see Dr. Cabrera today. PAST MEDICAL HISTORY: Asthma, multiple myeloma, bone marrow transplant, diabetes, hypertension, hyperlipidemia, tonsillectomy, right ankle repair, hernia repair x 3, D and C. ALLERGIES: None. FAMILY HISTORY: Hypertension. SOCIAL HISTORY: She does not drink, smoke or take drugs. She has been for many years. MEDICATIONS: Reviewed, please refer to the MRAD. REVIEW OF SYSTEMS: GENERAL: No history of weight change, weakness or fevers. SKIN: No bruising, hair changes or rashes. EYES: No blurred, double or loss of vision. NOSE AND THROAT: No history of nosebleeds, hoarseness or sore throat. HEART: She complains of chest discomfort periodically, although feels fine right now. LUNGS: Denies cough, hemoptysis, wheezing or shortness of breath. GASTROINTESTINAL: Denies changes in appetite, nausea, vomiting, diarrhea or constipation. GENITOURINARY: No history of frequency, urgency, hesitancy or nocturia. NEUROLOGIC: Denies history of numbness, tingling, tremor or weakness. PSYCHIATRIC: No history of panic, anxiety or depression. ENDOCRINE: No history of heat or cold intolerance, polyuria or polydipsia. EXTREMITIES: Denies muscle weakness, joint pain, pain on walking or stiffness. PHYSICAL EXAMINATION: VITAL SIGNS: Temperature afebrile, pulse 98, respirations 18, blood pressure 132/67. GENERAL: She is alert, cooperative. Her is present. HEART: Normal S1, S2. LUNGS: Clear to auscultation. ABDOMEN: Soft, positive bowel sounds. EXTREMITIES: Trace edema. SKIN: No rashes. ENDOCRINE: No thyromegaly. LYMPHATICS: No cervical nodes. HEMATOPOIETIC: No bruising. LABORATORY DATA: White count is 4.9. Troponin is 0.4. Glucose is high at 317. ASSESSMENT AND PLAN: Resolving supraventricular tachycardia with a slight bump in the troponin. Suspect this was demand ischemia. We will watch the patient in the ICU. Cardiac enzymes. Cardiac monitoring. IV beta blockade. Consult Cardiology. Home meds, frequent labs. ROBI RICO DO DR: LAMONTE/kati JOB#: [id number] / [id number]
[2018-01-02 03:19] VITALS: BP 117/54
[2018-01-02 06:36] LABS: CHOLESTEROL/HDL RATIO 4.5
[2018-01-02 07:28] VITALS: BP 113/56
[2018-01-02] MEDS: INSULIN LISPRO 300 UNITS/3 ML INSULN.PEN. SQ SCH ×2 (07:46→12:00)
--- NOTE | 2018-01-02 08:55 | PDOC ---
CARDIO Progress Notes Date and Time Date of Service 01/02/2018 Time of Evaluation 0840 Subjective Subjective: No Chest Pain, No shortness of breath, No Palpitations Vitals Vitals Vital Signs Date Time Temp Pulse Resp B/P (MAP) Pulse Ox O2 Delivery O2 Flow Rate FiO2 01/02/18 07:48 87 113/56 01/02/18 07:28 97.6 16 91 Room Air 97.6 Weight Weight [ ] Input and Output Intake and Output Intake and Output 01/02/18 07:00 Intake Total 1000 ml Balance 1000 ml Intake Oral 900 ml IV Total 100 ml # Voids 3 Laboratory Labs Laboratory Tests Test 01/01/18 10:06 01/01/18 11:50 01/01/18 16:59 01/01/18 18:01 White Blood Count 4.9 x10^3/uL (4.0-11.0) Red Blood Count 4.96 x10^6/uL (3.50-5.40) Hemoglobin 14.8 g/dL (12.0-15.5) Hematocrit 43.4 % (36.0-47.0) Mean Corpuscular Volume 88 fL (79-100) Mean Corpuscular Hemoglobin 30 pg (25-35) Mean Corpuscular Hemoglobin Concent 34 g/dL (31-37) Red Cell Distribution Width 14.7 % (11.5-14.5) Platelet Count 223 x10^3/uL (140-400) Neutrophils (%) (Auto) 57 % (31-73) Lymphocytes (%) (Auto) 28 % (24-48) Monocytes (%) (Auto) 10 % (0-9) Eosinophils (%) (Auto) 4 % (0-3) Basophils (%) (Auto) 1 % (0-3) Neutrophils # (Auto) 2.8 x10^3uL (1.8-7.7) Lymphocytes # (Auto) 1.4 x10^3/uL (1.0-4.8) Monocytes # (Auto) 0.5 x10^3/uL (0.0-1.1) Eosinophils # (Auto) 0.2 x10^3/uL (0.0-0.7) Basophils # (Auto) 0.1 x10^3/uL (0.0-0.2) Sodium Level 138 mmol/L (136-145) Potassium Level 3.6 mmol/L (3.5-5.1) Chloride Level 102 mmol/L (98-107) Carbon Dioxide Level 20 mmol/L (21-32) Anion Gap 16 (6-14) Blood Urea Nitrogen 14 mg/dL (7-20) Creatinine 1.1 mg/dL (0.6-1.0) Estimated GFR (Cockcroft-Gault) 49.8 BUN/Creatinine Ratio 13 (6-20) Glucose Level 317 mg/dL (70-99) Calcium Level 9.6 mg/dL (8.5-10.1) Magnesium Level 1.7 mg/dL (1.8-2.4) Total Bilirubin 0.7 mg/dL (0.2-1.0) Aspartate Amino Transf (AST/SGOT) 38 U/L (15-37) Alanine Aminotransferase (ALT/SGPT) 87 U/L (14-59) Alkaline Phosphatase 83 U/L (46-116) Troponin I Quantitative < 0.017 ng/mL (0.000-0.055) 0.057 ng/mL (0.000-0.055) 0.421 ng/mL (0.000-0.055) Total Protein 6.7 g/dL (6.4-8.2) Albumin 3.6 g/dL (3.4-5.0) Albumin/Globulin Ratio 1.2 (1.0-1.7) Glucose (Fingerstick) 182 mg/dL (70-99) Test 01/01/18 22:55 01/02/18 00:20 01/02/18 05:55 Glucose (Fingerstick) 154 mg/dL (70-99) Troponin I Quantitative 0.387 ng/mL (0.000-0.055) 0.279 ng/mL (0.000-0.055) Triglycerides Level 282 mg/dL (0-150) Cholesterol Level 243 mg/dL (0-200) LDL Cholesterol, Calculated 133 mg/dL (0-100) VLDL Cholesterol, Calculated 56 mg/dL (0-40) Non-HDL Cholesterol Calculated 189 mg/dL (0-129) HDL Cholesterol 54 mg/dL (40-60) Cholesterol/HDL Ratio 4.5 Thyroid Stimulating Hormone (TSH) 1.432 uIU/mL (0.358-3.74) Physical Exam HEENT: Neck Supple W Full Motion Chest: Symmetric LUNGS: Clear to Auscultation Heart: S1S2, RRR (SR) Abdomen: Soft N/T Extremities: No Calf Tenderness Neurology: alert, oriented, follow commands Assessment Assessment 1. PSVT: responded with adenosine 2. NSTEMI: demand mediated due to SVT with underlying CM 3. NICM: EF 40% MPI no reversible defect. MM treatment related? 4. HTN: controlled 5. Mild AI 6. Hx of Multiple myeloma: on darzalex which could induce SVTs 7. DM2/HLP; mild elevation of LFTs ?steatosis Recommendations 1. GI intolerance to BB. Continue with low dose cardizem CD. Stop home benicar and start on low dose lisinopril 2. Continue with ASA and statin. Follow up in office in 4 weeks. 3. Will arrange for outpt event monitor. GLADYS KRAUS APRN Jan 02, 2018 08:55
[2018-01-02 09:19] LABS: CREATININE 0.8 mg/dL (0.6-1.0); POTASSIUM 3.9 mmol/L (3.5-5.1)
[2018-01-02 09:23] LABS: ALBUMIN 3.2 g/dL (3.4-5.0); DIRECT BILIRUBIN 0.2 mg/dL (0.0-0.2); TOTAL BILIRUBIN 0.6 mg/dL (0.2-1.0); TOTAL PROTEIN 5.6 g/dL (6.4-8.2)
--- NOTE | 2018-01-02 10:00 | PDOC ---
PROGRESS NOTES Chief Complaint Chief Complaint Past Medical History Past Medical History: Asthma, Cancer, Diabetes-Type II, High Cholesterol, Hypertension Additional Past Medical Histor: multiple myeloma Past Surgical History: Tonsillectomy, Other Additional Past Surgical Histo: hernia repair x3, right ankle fracture repair, dilation and curretage Alcohol Use: None Drug Use: None denies excessive caffeine intake History of Present Illness History of Present Illness Assessment Resolving supraventricular tachycardia with a slight bump in troponin. Echo pending NSTEMI: PSVT vs ACS MM: on chronic immunosuppresion HTN: controlled Past EF 45 % 2014 DM2 Hypertension hyperlipidemia plan t4 Cardizem cardiology consult Echo, Mg, bmp statin LFT's Vitals Vitals Vital Signs Date Time Temp Pulse Resp B/P (MAP) Pulse Ox O2 Delivery O2 Flow Rate FiO2 01/02/18 07:48 87 113/56 01/02/18 07:28 97.6 16 91 Room Air 97.6 Physical Exam General: Alert, Oriented X3, Cooperative, No acute distress Heart: Regular rate (rate near 100), Normal S1, Normal S2 Lungs: Clear Abdomen: Soft, No tenderness Extremities: No cyanosis, No edema, Normal pulses Skin: No rashes, No breakdown, No significant lesion Labs LABS Laboratory Tests Test 01/01/18 10:06 01/01/18 11:50 01/01/18 16:59 01/01/18 18:01 White Blood Count 4.9 x10^3/uL (4.0-11.0) Red Blood Count 4.96 x10^6/uL (3.50-5.40) Hemoglobin 14.8 g/dL (12.0-15.5) Hematocrit 43.4 % (36.0-47.0) Mean Corpuscular Volume 88 fL (79-100) Mean Corpuscular Hemoglobin 30 pg (25-35) Mean Corpuscular Hemoglobin Concent 34 g/dL (31-37) Red Cell Distribution Width 14.7 % (11.5-14.5) Platelet Count 223 x10^3/uL (140-400) Neutrophils (%) (Auto) 57 % (31-73) Lymphocytes (%) (Auto) 28 % (24-48) Monocytes (%) (Auto) 10 % (0-9) Eosinophils (%) (Auto) 4 % (0-3) Basophils (%) (Auto) 1 % (0-3) Neutrophils # (Auto) 2.8 x10^3uL (1.8-7.7) Lymphocytes # (Auto) 1.4 x10^3/uL (1.0-4.8) Monocytes # (Auto) 0.5 x10^3/uL (0.0-1.1) Eosinophils # (Auto) 0.2 x10^3/uL (0.0-0.7) Basophils # (Auto) 0.1 x10^3/uL (0.0-0.2) Sodium Level 138 mmol/L (136-145) Potassium Level 3.6 mmol/L (3.5-5.1) Chloride Level 102 mmol/L (98-107) Carbon Dioxide Level 20 mmol/L (21-32) Anion Gap 16 (6-14) Blood Urea Nitrogen 14 mg/dL (7-20) Creatinine 1.1 mg/dL (0.6-1.0) Estimated GFR (Cockcroft-Gault) 49.8 BUN/Creatinine Ratio 13 (6-20) Glucose Level 317 mg/dL (70-99) Calcium Level 9.6 mg/dL (8.5-10.1) Magnesium Level 1.7 mg/dL (1.8-2.4) Total Bilirubin 0.7 mg/dL (0.2-1.0) Aspartate Amino Transf (AST/SGOT) 38 U/L (15-37) Alanine Aminotransferase (ALT/SGPT) 87 U/L (14-59) Alkaline Phosphatase 83 U/L (46-116) Troponin I Quantitative < 0.017 ng/mL (0.000-0.055) 0.057 ng/mL (0.000-0.055) 0.421 ng/mL (0.000-0.055) Total Protein 6.7 g/dL (6.4-8.2) Albumin 3.6 g/dL (3.4-5.0) Albumin/Globulin Ratio 1.2 (1.0-1.7) Glucose (Fingerstick) 182 mg/dL (70-99) Test 01/01/18 22:55 01/02/18 00:20 01/02/18 05:55 01/02/18 07:21 Glucose (Fingerstick) 154 mg/dL (70-99) 198 mg/dL (70-99) Troponin I Quantitative 0.387 ng/mL (0.000-0.055) 0.279 ng/mL (0.000-0.055) Sodium Level 143 mmol/L (136-145) Potassium Level 3.9 mmol/L (3.5-5.1) Chloride Level 108 mmol/L (98-107) Carbon Dioxide Level 23 mmol/L (21-32) Anion Gap 12 (6-14) Blood Urea Nitrogen 14 mg/dL (7-20) Creatinine 0.8 mg/dL (0.6-1.0) Estimated GFR (Cockcroft-Gault) 72.0 Glucose Level 175 mg/dL (70-99) Calcium Level 9.0 mg/dL (8.5-10.1) Magnesium Level 1.8 mg/dL (1.8-2.4) Total Bilirubin 0.6 mg/dL (0.2-1.0) Direct Bilirubin 0.2 mg/dL (0.0-0.2) Aspartate Amino Transf (AST/SGOT) 29 U/L (15-37) Alanine Aminotransferase (ALT/SGPT) 71 U/L (14-59) Alkaline Phosphatase 77 U/L (46-116) Total Protein 5.6 g/dL (6.4-8.2) Albumin 3.2 g/dL (3.4-5.0) Triglycerides Level 282 mg/dL (0-150) Cholesterol Level 243 mg/dL (0-200) LDL Cholesterol, Calculated 133 mg/dL (0-100) VLDL Cholesterol, Calculated 56 mg/dL (0-40) Non-HDL Cholesterol Calculated 189 mg/dL (0-129) HDL Cholesterol 54 mg/dL (40-60) Cholesterol/HDL Ratio 4.5 Thyroid Stimulating Hormone (TSH) 1.432 uIU/mL (0.358-3.74) Comment Review of Relevant I have reviewed the following items marcelino (where applicable) has been applied. Labs Laboratory Tests Test 01/01/18 10:06 01/01/18 11:50 01/01/18 16:59 01/01/18 18:01 White Blood Count 4.9 x10^3/uL (4.0-11.0) Red Blood Count 4.96 x10^6/uL (3.50-5.40) Hemoglobin 14.8 g/dL (12.0-15.5) Hematocrit 43.4 % (36.0-47.0) Mean Corpuscular Volume 88 fL (79-100) Mean Corpuscular Hemoglobin 30 pg (25-35) Mean Corpuscular Hemoglobin Concent 34 g/dL (31-37) Red Cell Distribution Width 14.7 % (11.5-14.5) Platelet Count 223 x10^3/uL (140-400) Neutrophils (%) (Auto) 57 % (31-73) Lymphocytes (%) (Auto) 28 % (24-48) Monocytes (%) (Auto) 10 % (0-9) Eosinophils (%) (Auto) 4 % (0-3) Basophils (%) (Auto) 1 % (0-3) Neutrophils # (Auto) 2.8 x10^3uL (1.8-7.7) Lymphocytes # (Auto) 1.4 x10^3/uL (1.0-4.8) Monocytes # (Auto) 0.5 x10^3/uL (0.0-1.1) Eosinophils # (Auto) 0.2 x10^3/uL (0.0-0.7) Basophils # (Auto) 0.1 x10^3/uL (0.0-0.2) Sodium Level 138 mmol/L (136-145) Potassium Level 3.6 mmol/L (3.5-5.1) Chloride Level 102 mmol/L (98-107) Carbon Dioxide Level 20 mmol/L (21-32) Anion Gap 16 (6-14) Blood Urea Nitrogen 14 mg/dL (7-20) Creatinine 1.1 mg/dL (0.6-1.0) Estimated GFR (Cockcroft-Gault) 49.8 BUN/Creatinine Ratio 13 (6-20) Glucose Level 317 mg/dL (70-99) Calcium Level 9.6 mg/dL (8.5-10.1) Magnesium Level 1.7 mg/dL (1.8-2.4) Total Bilirubin 0.7 mg/dL (0.2-1.0) Aspartate Amino Transf (AST/SGOT) 38 U/L (15-37) Alanine Aminotransferase (ALT/SGPT) 87 U/L (14-59) Alkaline Phosphatase 83 U/L (46-116) Troponin I Quantitative < 0.017 ng/mL (0.000-0.055) 0.057 ng/mL (0.000-0.055) 0.421 ng/mL (0.000-0.055) Total Protein 6.7 g/dL (6.4-8.2) Albumin 3.6 g/dL (3.4-5.0) Albumin/Globulin Ratio 1.2 (1.0-1.7) Glucose (Fingerstick) 182 mg/dL (70-99) Test 01/01/18 22:55 01/02/18 00:20 01/02/18 05:55 01/02/18 07:21 Glucose (Fingerstick) 154 mg/dL (70-99) 198 mg/dL (70-99) Troponin I Quantitative 0.387 ng/mL (0.000-0.055) 0.279 ng/mL (0.000-0.055) Sodium Level 143 mmol/L (136-145) Potassium Level 3.9 mmol/L (3.5-5.1) Chloride Level 108 mmol/L (98-107) Carbon Dioxide Level 23 mmol/L (21-32) Anion Gap 12 (6-14) Blood Urea Nitrogen 14 mg/dL (7-20) Creatinine 0.8 mg/dL (0.6-1.0) Estimated GFR (Cockcroft-Gault) 72.0 Glucose Level 175 mg/dL (70-99) Calcium Level 9.0 mg/dL (8.5-10.1) Magnesium Level 1.8 mg/dL (1.8-2.4) Total Bilirubin 0.6 mg/dL (0.2-1.0) Direct Bilirubin 0.2 mg/dL (0.0-0.2) Aspartate Amino Transf (AST/SGOT) 29 U/L (15-37) Alanine Aminotransferase (ALT/SGPT) 71 U/L (14-59) Alkaline Phosphatase 77 U/L (46-116) Total Protein 5.6 g/dL (6.4-8.2) Albumin 3.2 g/dL (3.4-5.0) Triglycerides Level 282 mg/dL (0-150) Cholesterol Level 243 mg/dL (0-200) LDL Cholesterol, Calculated 133 mg/dL (0-100) VLDL Cholesterol, Calculated 56 mg/dL (0-40) Non-HDL Cholesterol Calculated 189 mg/dL (0-129) HDL Cholesterol 54 mg/dL (40-60) Cholesterol/HDL Ratio 4.5 Thyroid Stimulating Hormone (TSH) 1.432 uIU/mL (0.358-3.74) Laboratory Tests Test 01/01/18 10:06 01/01/18 11:50 01/01/18 16:59 01/01/18 18:01 White Blood Count 4.9 x10^3/uL (4.0-11.0) Red Blood Count 4.96 x10^6/uL (3.50-5.40) Hemoglobin 14.8 g/dL (12.0-15.5) Hematocrit 43.4 % (36.0-47.0) Mean Corpuscular Volume 88 fL (79-100) Mean Corpuscular Hemoglobin 30 pg (25-35) Mean Corpuscular Hemoglobin Concent 34 g/dL (31-37) Red Cell Distribution Width 14.7 % (11.5-14.5) Platelet Count 223 x10^3/uL (140-400) Neutrophils (%) (Auto) 57 % (31-73) Lymphocytes (%) (Auto) 28 % (24-48) Monocytes (%) (Auto) 10 % (0-9) Eosinophils (%) (Auto) 4 % (0-3) Basophils (%) (Auto) 1 % (0-3) Neutrophils # (Auto) 2.8 x10^3uL (1.8-7.7) Lymphocytes # (Auto) 1.4 x10^3/uL (1.0-4.8) Monocytes # (Auto) 0.5 x10^3/uL (0.0-1.1) Eosinophils # (Auto) 0.2 x10^3/uL (0.0-0.7) Basophils # (Auto) 0.1 x10^3/uL (0.0-0.2) Sodium Level 138 mmol/L (136-145) Potassium Level 3.6 mmol/L (3.5-5.1) Chloride Level 102 mmol/L (98-107) Carbon Dioxide Level 20 mmol/L (21-32) Anion Gap 16 (6-14) Blood Urea Nitrogen 14 mg/dL (7-20) Creatinine 1.1 mg/dL (0.6-1.0) Estimated GFR (Cockcroft-Gault) 49.8 BUN/Creatinine Ratio 13 (6-20) Glucose Level 317 mg/dL (70-99) Calcium Level 9.6 mg/dL (8.5-10.1) Magnesium Level 1.7 mg/dL (1.8-2.4) Total Bilirubin 0.7 mg/dL (0.2-1.0) Aspartate Amino Transf (AST/SGOT) 38 U/L (15-37) Alanine Aminotransferase (ALT/SGPT) 87 U/L (14-59) Alkaline Phosphatase 83 U/L (46-116) Troponin I Quantitative < 0.017 ng/mL (0.000-0.055) 0.057 ng/mL (0.000-0.055) 0.421 ng/mL (0.000-0.055) Total Protein 6.7 g/dL (6.4-8.2) Albumin 3.6 g/dL (3.4-5.0) Albumin/Globulin Ratio 1.2 (1.0-1.7) Glucose (Fingerstick) 182 mg/dL (70-99) Test 01/01/18 22:55 01/02/18 00:20 01/02/18 05:55 01/02/18 07:21 Glucose (Fingerstick) 154 mg/dL (70-99) 198 mg/dL (70-99) Troponin I Quantitative 0.387 ng/mL (0.000-0.055) 0.279 ng/mL (0.000-0.055) Sodium Level 143 mmol/L (136-145) Potassium Level 3.9 mmol/L (3.5-5.1) Chloride Level 108 mmol/L (98-107) Carbon Dioxide Level 23 mmol/L (21-32) Anion Gap 12 (6-14) Blood Urea Nitrogen 14 mg/dL (7-20) Creatinine 0.8 mg/dL (0.6-1.0) Estimated GFR (Cockcroft-Gault) 72.0 Glucose Level 175 mg/dL (70-99) Calcium Level 9.0 mg/dL (8.5-10.1) Magnesium Level 1.8 mg/dL (1.8-2.4) Total Bilirubin 0.6 mg/dL (0.2-1.0) Direct Bilirubin 0.2 mg/dL (0.0-0.2) Aspartate Amino Transf (AST/SGOT) 29 U/L (15-37) Alanine Aminotransferase (ALT/SGPT) 71 U/L (14-59) Alkaline Phosphatase 77 U/L (46-116) Total Protein 5.6 g/dL (6.4-8.2) Albumin 3.2 g/dL (3.4-5.0) Triglycerides Level 282 mg/dL (0-150) Cholesterol Level 243 mg/dL (0-200) LDL Cholesterol, Calculated 133 mg/dL (0-100) VLDL Cholesterol, Calculated 56 mg/dL (0-40) Non-HDL Cholesterol Calculated 189 mg/dL (0-129) HDL Cholesterol 54 mg/dL (40-60) Cholesterol/HDL Ratio 4.5 Thyroid Stimulating Hormone (TSH) 1.432 uIU/mL (0.358-3.74) Medications Current Medications Adenosine (Adenocard) 6 mg STK-MED ONCE IV ; Start 01/01/18 at 09:53; Stop at 09:54; Status DC Magnesium Sulfate/ Dextrose 100 ml @ 100 mls/hr 1X ONCE IV Last administered on 01/01/18at 11:09; Start 01/01/18 at 11:15; Stop 01/01/18 at 12:14; Status DC Aspirin (Children'S Aspirin) 324 mg 1X ONCE PO Last administered on at 15:56; Start 01/01/18 at 15:30; Stop 01/01/18 at 15:31; Status DC Diltiazem HCl (Cardizem 24hr Cd) 120 mg DAILY PO Last administered on at 07:48; Start 01/01/18 at 16:00 Insulin Human Lispro (HumaLOG) 0-7 UNITS TIDWMEALS SQ Last administered on at 17:00; Start 01/01/18 at 17:00 Dextrose (Dextrose 50%-Water Syringe) 12.5 gm PRN Q15MIN PRN IV SEE COMMENTS; Start 10/29/18 at 16:15 Atorvastatin Calcium (Lipitor) 40 mg QHS PO ; Start 01/02/18 at 21:00; Stop at 21:00; Status DC Atorvastatin Calcium (Lipitor) 20 mg QHS PO ; Start 01/02/18 at 21:00 Active Scripts Active Reported Tresiba Flextouch U-100 (Insulin Degludec) 100 Unit/1 Ml Insuln.pen 26 Unit SQ QHS Novolog (Insulin Aspart) 100 Unit/1 Ml Cartridge 5 Unit SQ BIDWMEALS Valacyclovir (Valacyclovir Hcl) 500 Mg Tablet 1 Tab PO BID Benicar (Olmesartan Medoxomil) 20 Mg Tablet 0.5 Tab PO DAILY Vitals/I & O Vital Sign - Last 24 Hours 01/01/18 01/01/18 01/01/18 01/01/18 10:30 11:00 11:30 12:00 Pulse 116 112 104 106 Resp 18 18 18 18 B/P (MAP) 131/72 (91) 118/76 (90) 131/77 (95) 127/69 (88) Pulse Ox 94 94 94 94 O2 Delivery Room Air Room Air Room Air Room Air 01/01/18 01/01/18 01/01/18 01/01/18 12:30 15:29 15:57 19:30 Temp 98.0 97.9 98.0 97.9 Pulse 106 104 104 93 Resp 18 20 18 B/P (MAP) 128/73 (91) 158/84 (108) 158/84 135/77 (96) Pulse Ox 94 93 95 O2 Delivery Room Air Room Air Room Air 01/01/18 01/02/18 01/02/18 01/02/18 22:45 03:19 07:28 07:48 Temp 97.8 98.4 97.6 97.8 98.4 97.6 Pulse 98 87 87 87 Resp 20 18 16 B/P (MAP) 126/61 (82) 117/54 (75) 113/56 (75) 113/56 Pulse Ox 94 97 91 O2 Delivery Room Air Room Air Room Air Intake and Output 01/01/18 01/01/18 01/02/18 15:00 23:00 07:00 Intake Total 100 ml 500 ml 400 ml Balance 100 ml 500 ml 400 ml GISELLE SHAH MD Jan 02, 2018 10:00
--- NOTE | 2018-01-02 10:09 | CARD ---
MR#: [id number] Date of Study: 01/02/2018 Ordering Physician: JAMAAL CALDWELL, Referring Physician: ROBI RICO Tech: Miroslava Hamilton RDCS APPROVED REPORT EXAM: Two-dimensional and M-mode echocardiogram with Doppler and color Doppler. Other Information Quality : Good INDICATION Congestive Heart Failure SVT 2D DIMENSIONS RVDd2.9 (2.9-3.5cm)Left Atrium(2D)3.6 (1.6-4.0cm) IVSd0.9 (0.7-1.1cm)Aortic Root(2D)2.7 (2.0-3.7cm) LVDd4.0 (3.9-5.9cm)LVOT Diameter2.1 (1.8-2.4cm) PWd1.0 (0.7-1.1cm)LVDs3.4 (2.5-4.0cm) FS (%) 20.0 %SV23.1 ml LVEF(%)40.0 (>50%) Aortic Valve AoV Peak Darin.117.0cm/sAoV VTI17.5cm AO Peak GR.5.5mmHgLVOT Peak Darin.95.3cm/s AO Mean GR.4mmHgAVA (VMAX)2.95cm2 ELVIS (VTI)3.77nu7OZ P 1/2 Kkoi187zu Mitral Valve MV E Tushnynq43.7cm/sMV DECEL [id number] MV A Aeuqhect521.4cm/sE/A Ratio0.6 Pulmonary Vein S1 Iileuphg05.5cm/sD2 Jdplkvmc40.4cm/s LEFT VENTRICLE The left ventricle is normal size. There is normal left ventricular wall thickness. Mild left ventric ular systolic dysfunction. The Ejection Fraction is estimated at 40%. There is mild global hypokinesi s of the left ventricle. Transmitral Doppler flow pattern is Grade I-abnormal relaxation pattern. RIGHT VENTRICLE The right ventricle is normal size. The right ventricular systolic function is normal. ATRIA The left atrium size is normal. The right atrium size is normal. The interatrial septum is intact wit h no evidence for an atrial septal defect or patent foramen ovale as noted on 2-D or Doppler imaging. AORTIC VALVE The aortic valve is calcified but opens well. Doppler and Color Flow revealed mild aortic regurgitati on. There is no significant aortic valvular stenosis. MITRAL VALVE The mitral valve is calcified but opens well. There is no evidence of mitral valve prolapse. There is no mitral valve stenosis. Doppler and Color-flow revealed trace to mild mitral regurgitation. TRICUSPID VALVE The tricuspid valve is normal in structure and function. Doppler and Color Flow revealed trace tricus pid valve regurgitation. There is no tricuspid valve stenosis. PULMONIC VALVE The pulmonic valve is not well visualized. Doppler and Color Flow revealed no pulmonic valvular regur gitation. There is no pulmonic valvular stenosis. GREAT VESSELS The aortic root is normal in size. The ascending aorta is normal in size. The IVC is normal in size a nd collapses >50% with inspiration. PERICARDIAL EFFUSION There is no evidence of significant pericardial effusion. Critical Notification Critical Value: No <Conclusion> Mild left ventricular systolic dysfunction. The Ejection Fraction is estimated at 40%. Transmitral Doppler flow pattern is Grade I-abnormal relaxation pattern. Mild aortic regurgitation. Trace to mild mitral regurgitation. Trace tricuspid valve regurgitation. There is no evidence of significant pericardial effusion. Signed by : Bartolome Jackson, Electronically Approved : 01/02/2018 10:08:45
[2018-01-02 10:21] VITALS: BP 119/63
[2018-01-02] MEDS ORDERED: POTASSIUM CHLORIDE 20 MEQ TABLET.ER. PO ONE (11:00)
[2018-01-02] MEDS ORDERED: REGADENOSON 0.4 MG/5 ML DISP.SYRIN. IV ONE (11:00)
--- NOTE | 2018-01-02 14:02 | RAD ---
MR#: [id number] Date of Study: 01/02/2018 Ordering Physician: GLADYS KRAUS, Referring Physician: EDWINA JENSEN Tech: Ai Oquendo NMTCB, ARRT (R) (N) APPROVED REPORT Test Type: Pharmacological Stress Nurse/Tech: Jaclyn Banegas R.N. Test Indications: SVT, elevated trop. cardiomyopathy Cardiac History: Diabetes, Hypertension Medications: See Electronic Medical Record Medical History: See Electronic Medical Record Resting ECG: NSR Resting Heart Rate: 92 bpm Resting Blood Pressure: 116/75mmHg Pretest Chest Pain: No chest pain Nurse/Tech Notes S1S2, lungs sound clear Consent: The procedure was explained to the patient in lay terms. Informed consent was witnessed. Stu eout was entered into [employer]. History and Stress Test performed by Jaclyn Banegas R.N. Pharm. Details Pharmacologic stress testing was performed using 0.4mg per 5ml of regadenoson given intravenously ove r 7-10 seconds. Stress Symptoms DyspneaNausea POST EXERCISE Reason for Termination: Infusion complete Target HR: 131 Max HR: 133 bpm Max Blood Pressure: 133/74mmHg Blood Pressure response to exercise: Normal blood pressure response during stress. Chest Pain: No. Arrhythmia: No. ST Change: No. INTERPRETATION Stress EKG Conclusion: The resting EKG shows a sinus rhythm, LVH and nonspecific ST segment changes. The stress EKG shows no significant changes from baseline. No EKG evidence of stressed induced ischemia. Imaging Protocol IMAGE PROTOCOL: Rest Tc-99m/stress Tc-99m 1 day Rest: Stress: Viability: Radiopharm.Tc99m [id number] Sestamibi Dose11.2mCi 33mCi Duration 17min. 13min. Img Date 01/02/2018 01/02/2018 Inj-Img [id number]. 60min. Rest Admin Site:IV - Left AntecubitalAdministrator:RT Clover (R)(N) Stress Admin Site: IV - Left AntecubitalAdministrator: Demetrice Oliva, NMTCB, ARRT (R)(N) STRESS DATA End Diast. Vol.93.0mlEnd Syst. Vol.55.0ml Myocardial Auuq736.0gEject. Jzjwukwl80.0% Stress Scores Regional WT2.00Summed WT26.00 Regional WM0.00Summed WM33.00 LV Perfusion The stress scans show mild apical thinning. The rest scans show mild apical thinning. Nuclear imaging shows no reversible ischemia. Nuclear imaging shows mild fixed apical thinning probably secondary to technical factors. Wall Motion Left ventricular systolic function is globally decreased with an ejection fraction of 41%. LV Perf. Quant 17 Seg. SSS3.00 17 Seg. SRS1.00 17 Seg. SDS2.00 Stress Defect Extent (% LAD)5.60Rest Defect Extent (% LAD)6.30Rev. Defect Extent (% LAD)3.10 Stress Defect Extent (% LCX) 11.30Rest Defect Extent (% LCX)0.00Rev. Defect Extent (% LCX)11.30 Stress Defect Extent (% RCA)0.00Rest Defect Extent (% RCA)0.00Rev. Defect Extent (% RCA)0.00 Stress Defect Extent (% AYO)5.20Rest Defect Extent (% AYO)3.50Rev. Defect Extent (% AYO)4.30 Conclusion 1. No EKG evidence of stress-induced ischemia. 2. Nuclear imaging shows no reversible ischemia. 3. Nuclear imaging shows mild fixed apical thinning probably secondary to technical factors. 4. Mildly decreased LV systolic function on a global basis with an ejection fraction of 41%. 5. Moderate risk Lexiscan nuclear stress test. Signed by : José Luis Quijano MD Electronically Approved : 01/02/2018 14:01:22
[2018-01-02 14:47] VITALS: BP 130/76
--- NOTE | 2018-01-02 15:39 | PDOC3 ---
Discharge Summary Date of Admission: Jan 01, 2018 Date of Discharge: Jan 02, 2018 Follow-Up: 3-5 days Admitting Diagnosis comment: Past Medical History Past Medical History: Asthma, Cancer, Diabetes-Type II, High Cholesterol, Hypertension Additional Past Medical Histor: multiple myeloma Past Surgical History: Tonsillectomy, Other Additional Past Surgical Histo: hernia repair x3, right ankle fracture repair, dilation and curretage Alcohol Use: None Drug Use: None denies excessive caffeine intake discharge diagnosis========= History of Present Illness Assessment Resolving supraventricular tachycardia with a slight bump in troponin. Echo pending NSTEMI: PSVT vs ACS MM: on chronic immunosuppression HTN: controlled Past EF 45 % 2014 DM2 Hypertension hyperlipidemia plan t4 Cardizem cardiology consult Echo, Mg, bmp statin LFT's Vitals Vitals Vital Signs Date Time Temp Pulse Resp B/P (MAP) Pulse Ox O2 Delivery O2 Flow Rate FiO2 01/02/18 07:48 87 113/56 01/02/18 07:28 97.6 16 91 Room Air 97.6 Physical Exam General: Alert, Oriented X3, Cooperative, No acute distress Heart: Regular rate (rate near 100), Normal S1, Normal S2 Lungs: Clear Abdomen: Soft, No tenderness Extremities: No cyanosis, No edema, Normal pulses Skin: No rashes, No breakdown, No significant lesion Brief Hospital Course Ms. Gonzáles is a 67 old [sex] who presented with [SVT ] CONDITION AT DISCHARGE: Improved Discharge Medications Current Medications Adenosine (Adenocard) 6 mg STK-MED ONCE IV ; Start 01/01/18 at 09:53; Stop at 09:54; Status DC Magnesium Sulfate/ Dextrose 100 ml @ 100 mls/hr 1X ONCE IV Last administered on 01/01/18at 11:09; Start 01/01/18 at 11:15; Stop 01/01/18 at 12:14; Status DC Aspirin (Children'S Aspirin) 324 mg 1X ONCE PO Last administered on at 15:56; Start 01/01/18 at 15:30; Stop 01/01/18 at 15:31; Status DC Diltiazem HCl (Cardizem 24hr Cd) 120 mg DAILY PO Last administered on at 07:48; Start 01/01/18 at 16:00 Insulin Human Lispro (HumaLOG) 0-7 UNITS TIDWMEALS SQ Last administered on at 17:00; Start 01/01/18 at 17:00 Dextrose (Dextrose 50%-Water Syringe) 12.5 gm PRN Q15MIN PRN IV SEE COMMENTS; Start 01/01/18 at 16:15 Atorvastatin Calcium (Lipitor) 40 mg QHS PO ; Start 01/02/18 at 21:00; Stop at 21:00; Status DC Atorvastatin Calcium (Lipitor) 20 mg QHS PO ; Start 01/02/18 at 21:00 Potassium Chloride (Klor-Con) 20 meq DAILYWBKFT PO ; Start 01/03/18 at 08:00 Potassium Chloride (Klor-Con) 20 meq 1X ONCE PO Last administered on at 11:00; Start 01/02/18 at 11:00; Stop 01/02/18 at 11:01; Status DC Regadenoson (Lexiscan) 0.4 mg 1X ONCE IV Last administered on 01/02/18at 12:14 ; Start 01/02/18 at 11:00; Stop 01/02/18 at 11:01; Status DC Active Scripts Active Reported Tresiba Flextouch U-100 (Insulin Degludec) 100 Unit/1 Ml Insuln.pen 26 Unit SQ QHS Novolog (Insulin Aspart) 100 Unit/1 Ml Cartridge 5 Unit SQ BIDWMEALS Valacyclovir (Valacyclovir Hcl) 500 Mg Tablet 1 Tab PO BID Benicar (Olmesartan Medoxomil) 20 Mg Tablet 0.5 Tab PO DAILY Vital Signs Vital Signs Date Time Temp Pulse Resp B/P (MAP) Pulse Ox O2 Delivery O2 Flow Rate FiO2 01/02/18 14:47 97.6 101 18 130/76 (94) 92 Room Air 97.6 Labs Laboratory Tests Test 01/01/18 10:06 01/01/18 11:50 01/01/18 16:59 01/01/18 18:01 White Blood Count 4.9 x10^3/uL (4.0-11.0) Red Blood Count 4.96 x10^6/uL (3.50-5.40) Hemoglobin 14.8 g/dL (12.0-15.5) Hematocrit 43.4 % (36.0-47.0) Mean Corpuscular Volume 88 fL (79-100) Mean Corpuscular Hemoglobin 30 pg (25-35) Mean Corpuscular Hemoglobin Concent 34 g/dL (31-37) Red Cell Distribution Width 14.7 % (11.5-14.5) Platelet Count 223 x10^3/uL (140-400) Neutrophils (%) (Auto) 57 % (31-73) Lymphocytes (%) (Auto) 28 % (24-48) Monocytes (%) (Auto) 10 % (0-9) Eosinophils (%) (Auto) 4 % (0-3) Basophils (%) (Auto) 1 % (0-3) Neutrophils # (Auto) 2.8 x10^3uL (1.8-7.7) Lymphocytes # (Auto) 1.4 x10^3/uL (1.0-4.8) Monocytes # (Auto) 0.5 x10^3/uL (0.0-1.1) Eosinophils # (Auto) 0.2 x10^3/uL (0.0-0.7) Basophils # (Auto) 0.1 x10^3/uL (0.0-0.2) Sodium Level 138 mmol/L (136-145) Potassium Level 3.6 mmol/L (3.5-5.1) Chloride Level 102 mmol/L (98-107) Carbon Dioxide Level 20 mmol/L (21-32) Anion Gap 16 (6-14) Blood Urea Nitrogen 14 mg/dL (7-20) Creatinine 1.1 mg/dL (0.6-1.0) Estimated GFR (Cockcroft-Gault) 49.8 BUN/Creatinine Ratio 13 (6-20) Glucose Level 317 mg/dL (70-99) Calcium Level 9.6 mg/dL (8.5-10.1) Magnesium Level 1.7 mg/dL (1.8-2.4) Total Bilirubin 0.7 mg/dL (0.2-1.0) Aspartate Amino Transf (AST/SGOT) 38 U/L (15-37) Alanine Aminotransferase (ALT/SGPT) 87 U/L (14-59) Alkaline Phosphatase 83 U/L (46-116) Troponin I Quantitative < 0.017 ng/mL (0.000-0.055) 0.057 ng/mL (0.000-0.055) 0.421 ng/mL (0.000-0.055) Total Protein 6.7 g/dL (6.4-8.2) Albumin 3.6 g/dL (3.4-5.0) Albumin/Globulin Ratio 1.2 (1.0-1.7) Glucose (Fingerstick) 182 mg/dL (70-99) Test 01/01/18 22:55 01/02/18 00:20 01/02/18 05:55 01/02/18 07:21 Glucose (Fingerstick) 154 mg/dL (70-99) 198 mg/dL (70-99) Troponin I Quantitative 0.387 ng/mL (0.000-0.055) 0.279 ng/mL (0.000-0.055) Sodium Level 143 mmol/L (136-145) Potassium Level 3.9 mmol/L (3.5-5.1) Chloride Level 108 mmol/L (98-107) Carbon Dioxide Level 23 mmol/L (21-32) Anion Gap 12 (6-14) Blood Urea Nitrogen 14 mg/dL (7-20) Creatinine 0.8 mg/dL (0.6-1.0) Estimated GFR (Cockcroft-Gault) 72.0 Glucose Level 175 mg/dL (70-99) Calcium Level 9.0 mg/dL (8.5-10.1) Magnesium Level 1.8 mg/dL (1.8-2.4) Total Bilirubin 0.6 mg/dL (0.2-1.0) Direct Bilirubin 0.2 mg/dL (0.0-0.2) Aspartate Amino Transf (AST/SGOT) 29 U/L (15-37) Alanine Aminotransferase (ALT/SGPT) 71 U/L (14-59) Alkaline Phosphatase 77 U/L (46-116) Total Protein 5.6 g/dL (6.4-8.2) Albumin 3.2 g/dL (3.4-5.0) Triglycerides Level 282 mg/dL (0-150) Cholesterol Level 243 mg/dL (0-200) LDL Cholesterol, Calculated 133 mg/dL (0-100) VLDL Cholesterol, Calculated 56 mg/dL (0-40) Non-HDL Cholesterol Calculated 189 mg/dL (0-129) HDL Cholesterol 54 mg/dL (40-60) Cholesterol/HDL Ratio 4.5 Thyroid Stimulating Hormone (TSH) 1.432 uIU/mL (0.358-3.74) Free Thyroxine 0.85 ng/dL (0.76-1.46) Test 01/02/18 12:31 Glucose (Fingerstick) 168 mg/dL (70-99) Laboratory Tests Test 01/01/18 16:59 01/01/18 18:01 01/01/18 22:55 01/02/18 00:20 Glucose (Fingerstick) 182 mg/dL (70-99) 154 mg/dL (70-99) Troponin I Quantitative 0.421 ng/mL (0.000-0.055) 0.387 ng/mL (0.000-0.055) Test 01/02/18 05:55 01/02/18 07:21 01/02/18 12:31 Sodium Level 143 mmol/L (136-145) Potassium Level 3.9 mmol/L (3.5-5.1) Chloride Level 108 mmol/L (98-107) Carbon Dioxide Level 23 mmol/L (21-32) Anion Gap 12 (6-14) Blood Urea Nitrogen 14 mg/dL (7-20) Creatinine 0.8 mg/dL (0.6-1.0) Estimated GFR (Cockcroft-Gault) 72.0 Glucose Level 175 mg/dL (70-99) Calcium Level 9.0 mg/dL (8.5-10.1) Magnesium Level 1.8 mg/dL (1.8-2.4) Total Bilirubin 0.6 mg/dL (0.2-1.0) Direct Bilirubin 0.2 mg/dL (0.0-0.2) Aspartate Amino Transf (AST/SGOT) 29 U/L (15-37) Alanine Aminotransferase (ALT/SGPT) 71 U/L (14-59) Alkaline Phosphatase 77 U/L (46-116) Troponin I Quantitative 0.279 ng/mL (0.000-0.055) Total Protein 5.6 g/dL (6.4-8.2) Albumin 3.2 g/dL (3.4-5.0) Triglycerides Level 282 mg/dL (0-150) Cholesterol Level 243 mg/dL (0-200) LDL Cholesterol, Calculated 133 mg/dL (0-100) VLDL Cholesterol, Calculated 56 mg/dL (0-40) Non-HDL Cholesterol Calculated 189 mg/dL (0-129) HDL Cholesterol 54 mg/dL (40-60) Cholesterol/HDL Ratio 4.5 Thyroid Stimulating Hormone (TSH) 1.432 uIU/mL (0.358-3.74) Free Thyroxine 0.85 ng/dL (0.76-1.46) Glucose (Fingerstick) 198 mg/dL (70-99) 168 mg/dL (70-99) Allergies Allergies Coded Allergies Type Severity Reaction Last Updated Verified Beta-Blockers (Beta-Adrenergic Bloc Allergy Intermediate Itching and anxiety Yes Iodinated Contrast- Oral and IV Dye Allergy Intermediate 05/08/14 Yes hydrocodone Allergy Intermediate 05/08/14 Yes iodine Allergy Intermediate Rash 01/02/18 Yes pioglitazone Adverse Reaction Intermediate anxiety 05/08/14 Yes Disposition/Orders: D/C to Home Patient Instructions D/C PLANNING 40 MIN GISELLE SHAH MD Jan 02, 2018 15:39
[2018-01-02] MEDS ORDERED: DILT120C80 PO (15:42)
[2018-01-02] MEDS ORDERED: ATORVASTATIN CALCIUM 20 MG TABLET PO SCH (21:00)
[2018-01-02] MEDS ORDERED: ATORVASTATIN CALCIUM 40 MG TABLET. PO SCH (21:00)
[2018-01-03] MEDS ORDERED: POTASSIUM CHLORIDE 20 MEQ TABLET.ER. PO SCH (08:00)
== END 2018-01-02 16:32 | disposition home or self-care (01) | DRG 281 ==
LOC: ER 09:46 → CVICU 13:10
PROVIDERS: ADMIT Internal Medicine; ATTEND Internal Medicine
DX: I21.A1 Myocardial infarction type 2 (principal); I47.1 Supraventricular tachycardia; I42.9 Cardiomyopathy, unspecified; I50.42 Chronic combined systolic (congestive) and diastolic (congestive) heart failure; C90.00 Multiple myeloma not having achieved remission; E78.00 Pure hypercholesterolemia, unspecified; E78.5 Hyperlipidemia, unspecified; E83.42 Hypomagnesemia; I11.0 Hypertensive heart disease with heart failure; E11.9 Type 2 diabetes mellitus without complications; J45.909 Unspecified asthma, uncomplicated; M19.90 Unspecified osteoarthritis, unspecified site; K21.9 Gastro-esophageal reflux disease without esophagitis; Z79.899 Other long term (current) drug therapy; Z82.49 Family history of ischemic heart disease and other diseases of the circulatory system; Z83.3 Family history of diabetes mellitus; Z88.5 Allergy status to narcotic agent; Z88.8 Allergy status to other drugs, medicaments and biological substances; Z91.041 Radiographic dye allergy status
CPT/HCPCS: 36415; 71045; 78452; 80048; 80053; 80061; 80076; 82962; 83735; 84439; 84443; 84484; 85025; 93005; 93017; 93306; 96365; 96374; 96375; 96376; A9500; J1815; J2785; J3475; 99285-25

== ENCOUNTER → 2018-04-13 | Outpatient (CLI) | payer MEDICARE ==
[~2018-04-13] MED LIST changes: +DILT120C85 PO; +INSU100C4 SQ
--- NOTE | 2018-04-13 12:19 | CARD ---
MR#: [id number] Date of Study: 04/13/2018 Ordering Physician: ADA LR, Referring Physician: ADA LR, Tech: Becky Waldrop APPROVED REPORT EXAM: Two-dimensional and M-mode echocardiogram with Doppler and color Doppler. Other Information Quality : AverageHR: 90bpm INDICATION Tachycardia RISK FACTORS Hypertension Hyperlipidemia Diabetes 2D DIMENSIONS RVDd2.5 (2.9-3.5cm)Left Atrium(2D)3.0 (1.6-4.0cm) IVSd1.0 (0.7-1.1cm)Aortic Root(2D)2.6 (2.0-3.7cm) LVDd4.4 (3.9-5.9cm)LVOT Diameter2.0 (1.8-2.4cm) PWd1.1 (0.7-1.1cm)LVDs3.4 (2.5-4.0cm) FS (%) 22.1 %SV39.8 ml LVEF(%)44.9 (>50%) Aortic Valve AoV Peak Darin.161.9cm/sAoV VTI27.5cm AO Peak GR.10.5mmHgLVOT Peak Darin.87.5cm/s LVOT VTI 18.26cmAO Mean GR.5mmHg ELVIS (VMAX)1.08yo0MRW (VTI)2.02cm2 AI P 1/2 [id number] Mitral Valve MV E Rspzhprw39.3cm/sMV DECEL [id number] MV A Zoefatyr769.3cm/sMV [id number] E/A Ratio0.8MVA (PHT)4.70cm2 TDI E/Lateral E'22.9E/Medial E'20.2 Pulmonary Valve PV Peak Drczqnsk688.1cm/sPV Peak Grad.6mmHg Tricuspid Valve TR P. Tupctiwf722rj/sRAP [id number] TR Peak Gr.16mmHg Pulmonary Vein S1 Rpxhzzia21.1cm/sD2 Coygiylt73.5cm/s PVa [id number] LEFT VENTRICLE The left ventricle is normal size. There is borderline to mild concentric left ventricular hypertroph y. The left ventricular systolic function is mildly diminished. The Ejection Fraction is 45%. There i s global hypokinesis of the left ventricle. Transmitral Doppler flow pattern is Grade I-abnormal rela xation pattern. RIGHT VENTRICLE The right ventricle is normal size. There is normal right ventricular wall thickness. The right ventr icular systolic function is normal. ATRIA The left atrium size is normal. The right atrium size is normal. The interatrial septum is intact wit h no evidence for an atrial septal defect or patent foramen ovale as noted on 2-D or Doppler imaging. AORTIC VALVE The aortic valve is thickened but opens well. Doppler and Color Flow revealed mild aortic regurgitati on. There is no significant aortic valvular stenosis. MITRAL VALVE The mitral valve is thickened but opens well. There is no evidence of mitral valve prolapse. There is no mitral valve stenosis. Doppler and Color-flow revealed mild mitral regurgitation. TRICUSPID VALVE The tricuspid valve is normal in structure and function. Doppler and Color Flow revealed trace tricus pid regurgitation. There is no tricuspid valve stenosis. PULMONIC VALVE The pulmonary valve is normal in structure and function. Doppler and Color Flow revealed no pulmonic valvular regurgitation. GREAT VESSELS The aortic root is normal in size. The IVC is normal in size and collapses >50% with inspiration. PERICARDIAL EFFUSION There is no evidence of significant pericardial effusion. Critical Notification Critical Value: No <Conclusion> The left ventricular systolic function is mildly diminished. The Ejection Fraction is 45%. Transmitral Doppler flow pattern is Grade I-abnormal relaxation pattern. Mild aortic regurgitation. Mild mitral regurgitation. Trace tricuspid regurgitation. There is no evidence of significant pericardial effusion. Signed by : Bartolome Jackson, Electronically Approved : 04/13/2018 12:17:31
== END | disposition home or self-care (01) ==
LOC: ECHO 07:53
PROVIDERS: ATTEND Internal Medicine Cardiovascular Disease
DX: I08.0 Rheumatic disorders of both mitral and aortic valves (principal); I10 Essential (primary) hypertension; E78.49 Other hyperlipidemia; E11.9 Type 2 diabetes mellitus without complications
CPT/HCPCS: 93306